=== PATIENT | male | born 1950 | race Caucasian/White ===

== ENCOUNTER 2016-12-12 11:21 | Inpatient (IN) | payer MEDICARE, OTHER ==
[~2016-12-12] VITALS: Ht 180.3 cm; Wt 139.8 kg
[2016-12-12] VITALS (10 sets, daily range): BP systolic 125–135; BP diastolic 67–74; PULSE 105–119; RESP 28; TEMP 98–98.4; O2SAT 94–99
[~2016-12-12 11:21] MED LIST: CLON0.1T PO; FISHCAP4 PO; GLIP5TAB8 PO; GLUM1000 PO; LANTUS2P SQ; LEVA500T PO; LOTE10TA13 PO; METO100T PO; ZETI10TA5 PO; ZOCO40TA PO
[2016-12-12] MEDS ORDERED: SODIUM CHLOR 0.9% 1000 ML INJ 1,000 ML IV SCH ×3 (11:38→12:06)
[2016-12-12] MEDS ORDERED: ONDANSETRON HCL 4 MG/2 ML VIAL IVP ONE (11:45)
--- NOTE | 2016-12-12 11:53 | PD ---
HPI Chief Complaint: General Weakness Time Seen by Provider: 11:46 Travel History International Travel<30 days: No Contact w/Intl Traveler<30days: No Traveled to known affect area: No History of Present Illness HPI 66-year-old male that presents to the ED for evaluation of generalized weakness. Patient comes rebound was for evaluation of this. Patient has a history of diabetes and cirrhosis. Patient apparently has been noncompliant with his insulin as per ambulance he told them that his blood sugar was reading high so he did not give himself the insulin. Per ambulance he had a lot of empty bottles of Mountain Dew that had been empty. Patient has been having nausea and diarrhea for the past couple of days. Patient states that he feels very weak. Patient does have episodes of confusion but seems to be alert and oriented 4 at this time. Unclear if patient is compliant with any other medications but likely not. Patient was found to be full of feces all around his body. He denies any history of alcohol or drugs and from her medical records I was able to review that he was here in May for something very similar. The time he was found to have kidney stones and sepsis. He denies any blood of any kind. He denies any chest pain. He denies any shortness of breath. Patient denies any urinary symptoms. He does have an allergy to iodine. No obvious fevers but patient has stated that he has chills. PFSH Past Medical History Hx Anticoagulant Therapy: Yes (COUMADIN) High Cholesterol: Yes Diabetes: Yes (TYPE 2) Diminished Hearing: No Hypertension: Yes Past Surgical History Genitourinary Surgery: Yes (KIDNEY STONE REMOVAL) Social History Alcohol Use: Yes (1 DRINK PER WEEK) Tobacco Use: No Substance Use: No Allergies-Medications (Allergen,Severity, Reaction): Coded Allergies: Iodine (Verified Allergy, Mild, 06/05/16) Reported Meds & Prescriptions Reported Meds & Active Scripts Active Levaquin (Levofloxacin) 500 Mg Tab 750 Mg PO DAILY Reported Zocor (Simvastatin) 40 Mg Tab 40 Mg PO DAILY Fish Oil + D3 (Fish Oil-Cholecalciferol) 1,200-1,000 Mg-Unit Cap 1 Cap PO DAILY Glumetza (Metformin HCl) 1,000 Mg Moira 1,000 Mg PO BID With evening meal Glipizide 5 Mg Tab 5 Mg PO BIDAC Take 30 minutes before a meal Lotensin (Benazepril HCl) 10 Mg Tab 5 Mg PO DAILY Zetia (Ezetimibe) 10 Mg Tab 10 Mg PO DAILY Clonidine (Clonidine HCl) 0.1 Mg Tab 0.1 Mg PO DAILY Metoprolol Tartrate 100 Mg Tab 100 Mg PO DAILY Lantus Inj (Insulin Glargine) 1,000 Unit/10 Ml Vial 50 Units SQ BID Review of Systems Except as stated in HPI: all other systems reviewed are Neg Physical Exam Narrative GENERAL: SKIN: Warm and dry. Patient has PVCs noted on the nails on the toes as well as the feet and arms. Most of it noted on the pants. Some of it had been already cleaned by ED nurse before I got in the room. HEAD: Atraumatic. Normocephalic. EYES: Pupils equal and round 4 mm reactive to light and accommodation. No scleral icterus. No injection or drainage. ENT: No nasal bleeding or discharge. Mucous membranes pink and moist. Tongue is midline. No uvula deviation. NECK: Trachea midline. No JVD. CARDIOVASCULAR: Regular rate and rhythm. No murmurs, S3, S4. RESPIRATORY: No accessory muscle use. Clear to auscultation. Breath sounds equal bilaterally. GASTROINTESTINAL: Abdomen soft, non-tender, nondistended. Hepatic and splenic margins not palpable. MUSCULOSKELETAL: Extremities without clubbing, cyanosis, or edema. No obvious deformities. Full range of motion of the upper and lower extremities bilaterally. 2+ pulses bilaterally. NEUROLOGICAL: Awake and alert. No obvious cranial nerve deficits. Motor grossly within normal limits. Five out of 5 muscle strength in the arms and legs. Normal speech. PSYCHIATRIC: Appropriate mood and affect; insight and judgment normal. Data Data Last Documented VS Vital Signs Date Time Temp Pulse Resp B/P Pulse Ox O2 Delivery O2 Flow Rate FiO2 12/12/16 11:42 98.4 116 28 135/74 96 Orders Electrocardiogram (12/12/16 11:38) Complete Blood Count With Diff (12/12/16 11:38) Comprehensive Metabolic Panel (12/12/16 11:38) Ckmb (Isoenzyme) Profile (12/12/16 11:38) Troponin I (12/12/16 11:38) Prothrombin Time / Inr (Pt) (12/12/16 11:38) Act Partial Throm Time (Ptt) (12/12/16 11:38) Blood Culture (12/12/16 11:38) Lipase (12/12/16 11:38) Urinalysis - C+S If Indicated (12/12/16 11:38) Magnesium (Mg) (12/12/16 11:38) Thyroid Stimulating Hormone (12/12/16 11:38) Chest, Single Ap (12/12/16 11:38) Iv Access Insert/Monitor (12/12/16 11:38) Ecg Monitoring (12/12/16 11:38) Oximetry (12/12/16 11:38) Lactic Acid (12/12/16 11:38) Ondansetron Inj (Zofran Inj) (12/12/16 11:45) Sodium Chlor 0.9% 1000 Ml Inj (Ns 1000 M (12/12/16 11:38) C Diff Toxin Pcr (12/12/16 11:38) Beta Hydroxybutyrate (Acetone) (12/12/16 11:41) Blood Gas Venous (Vbg) (12/12/16 11:41) Ammonia (12/12/16 11:43) Ct Brain W/O Iv Contrast(Rout) (12/12/16 12:01) Sodium Chlor 0.9% 1000 Ml Inj (Ns 1000 M (12/12/16 12:02) Sodium Chlor 0.9% 1000 Ml Inj (Ns 1000 M (12/12/16 12:06) B-Type Natriuretic Peptide (12/12/16 12:32) CKMB (12/12/16 11:53) CKMB% (12/12/16 11:53) Vascular Access Team Consult/P PRN (12/12/16 13:15) Vascular Poc Ultrasound (12/12/16 ) Potassium Chlor 20 Meq Premix (Kcl 20 Me (12/12/16 13:15) Potassium Chloride (Kcl) (12/12/16 13:15) Sodium Chlor 0.9% 1000 Ml Inj (Ns 1000 M (12/12/16 13:15) Vancomycin Inj (Vancomycin Inj) (12/12/16 13:30) Piperacil-Tazo 3.375 Gm Premix (Zosyn 3. (12/12/16 13:30) Admit To Inpatient (12/12/16 ) Bridge Game Director / Telemetry TANA.Q8H (12/12/16 13:28) ^ Insert Iv (12/12/16 13:28) ^ Teach Patient (12/12/16 13:28) Diet Npo (12/12/16 Lunch) Bedside Glucose TANA.Q1H (12/12/16 13:28) Sodium Chlor 0.9% 1000 Ml Inj (Ns 1000 M (12/12/16 13:28) Dext 5%-Nacl 0.9% 1000 Ml Inj (D5w-Ns 10 (12/12/16 13:28) Insulin Human Regular Inj (Novolin R Inj (12/12/16 13:45) Insulin Regular (Iv Infusion) (Novolin R (12/12/16 13:30) Potassium Chlor 40 Meq Premix (Kcl 40 Me (12/12/16 13:30) Potassium Chlor 40 Meq Premix (Kcl 40 Me (12/12/16 13:30) Potassium Chlor 20 Meq Premix (Kcl 20 Me (12/12/16 13:30) Potassium Chlor 20 Meq Premix (Kcl 20 Me (12/12/16 13:30) Potassium Chlor 20 Meq Premix (Kcl 20 Me (12/12/16 13:30) Potassium Chlor 20 Meq Premix (Kcl 20 Me (12/12/16 13:30) Potassium Chlor 20 Meq Premix (Kcl 20 Me (12/12/16 13:30) Potassium Chlor 20 Meq Premix (Kcl 20 Me (12/12/16 13:30) Sodium Bicarbonate 8.4% Inj (Sodium Bica (12/12/16 13:30) Sodium Bicarbonate 8.4% Inj (Sodium Bica (12/12/16 13:30) Sodium Phosphate Inj (Sodium Phosphate I (12/12/16 13:30) Basic Metabolic Panel (Bmp) (12/12/16 18:28) Basic Metabolic Panel (Bmp) (12/13/16 00:28) Basic Metabolic Panel (Bmp) (12/13/16 06:28) Basic Metabolic Panel (Bmp) (12/13/16 12:28) Magnesium (Mg) (12/12/16 18:28) Magnesium (Mg) (12/13/16 00:28) Magnesium (Mg) (12/13/16 06:28) Magnesium (Mg) (12/13/16 12:28) Phosphorus (Po4) (12/12/16 18:28) Phosphorus (Po4) (12/13/16 00:28) Phosphorus (Po4) (12/13/16 06:28) Phosphorus (Po4) (12/13/16 12:28) ^ Initiate Protocol (12/12/16 13:28) Instruction (12/12/16 13:28) [facility] Nursing Information (12/12/16 13:30) Chlorhexidine 2% Cloth (Chlorhexidine 2% (12/13/16 04:00) Chlorhexidine 2% Cloth (Chlorhexidine 2% (12/12/16 13:30) Mrsa Pcr Surveillance (12/12/16 13:28) Inpatient Certification (12/12/16 ) Potassium Chloride (Kcl) (12/12/16 13:30) Potassium Chlor 20 Meq Premix (Kcl 20 Me (12/12/16 13:30) Admit Order (Ed Use Only) (12/12/16 13:30) Ns (Bolus) Inj (12/12/16 13:45) Ns (Bolus) Inj (12/12/16 13:45) Electrocardiogram (12/12/16 ) Labs Laboratory Tests Test 12/12/16 12/12/16 12/12/16 11:40 11:53 12:03 Ammonia 30 MCMOL/L White Blood Count 16.2 TH/MM3 Red Blood Count 4.54 MIL/MM3 Hemoglobin 14.5 GM/DL Hematocrit 48.1 % Mean Corpuscular Volume 105.9 FL Mean Corpuscular Hemoglobin 32.0 PG Mean Corpuscular Hemoglobin 30.2 % Concent Red Cell Distribution Width 14.5 % Platelet Count 148 TH/MM3 Mean Platelet Volume 9.7 FL Neutrophils (%) (Auto) 87.6 % Lymphocytes (%) (Auto) 4.2 % Monocytes (%) (Auto) 8.0 % Eosinophils (%) (Auto) 0.0 % Basophils (%) (Auto) 0.2 % Neutrophils # (Auto) 14.2 TH/MM3 Lymphocytes # (Auto) 0.7 TH/MM3 Monocytes # (Auto) 1.3 TH/MM3 Eosinophils # (Auto) 0.0 TH/MM3 Basophils # (Auto) 0.0 TH/MM3 CBC Comment DIFF FINAL Differential Comment Prothrombin Time 13.1 SEC Prothromb Time International 1.2 RATIO Ratio Activated Partial 28.0 SEC Thromboplast Time Sodium Level 129 MEQ/L Potassium Level 2.6 MEQ/L Chloride Level 93 MEQ/L Carbon Dioxide Level 14.1 MEQ/L Anion Gap 22 MEQ/L Blood Urea Nitrogen 18 MG/DL Creatinine 2.65 MG/DL Estimat Glomerular Filtration 24 ML/MIN Rate Random Glucose 1717 MG/DL Lactic Acid Level 6.9 mmol/L Calcium Level 8.9 MG/DL Magnesium Level 3.0 MG/DL Total Bilirubin 1.3 MG/DL Aspartate Amino Transf 47 U/L (AST/SGOT) Alanine Aminotransferase 38 U/L (ALT/SGPT) Alkaline Phosphatase 185 U/L Total Creatine Kinase 2392 U/L Creatine Kinase MB 8.3 NG/ML Creatine Kinase MB % 0.3 % Troponin I 1.22 NG/ML Total Protein 7.2 GM/DL Albumin 3.5 GM/DL Lipase 264 U/L Thyroid Stimulating Hormone 0.635 uIU/ML 3rd Gen B-Hydroxybutyrate 4.39 MMOL/L Blood Gas Puncture Site IV Blood Gas Patient Temperature 98.6 Venous Blood pH 7.24 Venous Blood Partial Pressure 35 mmHg CO2 Venous Blood Partial Pressure 27 mmHg O2 Venous Blood HCO3 15 mmol/L Venous Blood Oxygen Saturation 48 % Venous Blood Oxygen Content 10.1 Vol % Venous Blood Base Excess -11.4 mmol/L Oxygen Delivery Device NASAL CANNULA Blood Gas Liter Flow 2 L/M MDM Medical Decision Making Medical Screen Exam Complete: Yes Emergency Medical Condition: Yes Medical Record Reviewed: Yes Interpretation(s) CBC & BMP Diagram 12/12/16 11:53 acetone is elevated. Lacitic in the 6s troponin elevated CK in the 1999s LFts and lipase WNL Last Impressions Head CT 12/12/16 1201 Signed Impressions: Service Date/Time: , December 12, 2016 13:06 - CONCLUSION: 1. Mild cerebral atrophy. 2. No acute infarct, acute hemorrhage, mass effect or extra axial fluid collections. Daniel Pisano MD Differential Diagnosis Sepsis versus severe sepsis versus poor hygiene versus UTI versus dehydration versus DKA versus acidosis versus gastroenteritis versus gastritis versus C. difficile versus noncompliance versus cirrhosis Narrative Course 66-year-old male that presents to the ED for evaluation of generalized weakness. Patient was properly examined and was found to have signs and symptoms very concerning for severe illness. Patient does appear to be tachycardic and to keep neck. Patient appears to be alert and oriented and answers margins of properly but he does appear to have some episodes of confusion. Sugar is critical high. At this time concern for DKA as well as sepsis. My attending Dr. Newton evaluated the patient with me and agrees with plan. Labs and imaging ordered. Patient was started on IV fluids. Labs and imaging come back showing DKA, sepsis, rhabdomyolysis and positive troponin. Case was signed out to my attending who took over care and admitted the patient to the intensive care unit registered nurse for evaluation of all of this abnormalities. Patient had already been given 3 L as well as started on Zosyn and vancomycin. Sepsis Criteria SIRS Criteria (2 or more): Heart rate over 90, WBC > 43570, < 4000 or > 10% bands Sepsis Criteria (SIRS+source): Infect source susp/known Severe Sepsis (+one): Lactate >2 Criteria Outcome: Meets severe sepsis criteria Diagnosis Primary Impression: DKA (diabetic ketoacidoses) Qualified Code: E13.10 - Diabetic ketoacidosis without coma associated with type 2 diabetes mellitus Additional Impressions: Severe sepsis Poor personal hygiene Gastroenteritis Admitting Information Admitting Physician Requests: Admit Mendel Cates Dec 12, 2016 11:53
[2016-12-12 12:14] LABS: BLOOD GAS VENOUS BASE EXCESS -11.4 mmol/L (-2-2); BLOOD GAS VENOUS HCO3 15 mmol/L (22-26); BLOOD GAS VENOUS O2 CONTENT 10.1 Vol % (9.0-17.0); BLOOD GAS VENOUS O2 HGB SAT 48 % (70-76); BLOOD GAS VENOUS PCO2 35 mmHg (44-48); BLOOD GAS VENOUS PO2 27 mmHg (35-40); BLOOD GAS VENOUS pH 7.24 (7.360-7.400); CRITICAL VALUE YES; TEMP CORR TO 98.6
[2016-12-12 12:15] LABS: DRAW SITE IV; LITER FLOW 2 L/M; OXYGEN DEVICE NASAL CANNULA; STAT YES
[2016-12-12 12:40] LABS: AUTOMATED NEUTROPHIL # 14.2 TH/MM3 (1.8-7.7); BASOPHIL % 0.2 % (0.0-2.0); HEMATOCRIT 48.1 % (39.0-51.0); HEMO FLAGS DIFF FINAL; LYMPH % 4.2 % (9.0-44.0); LYMPHOCYTE # 0.7 TH/MM3 (1.0-4.8); MEAN CELL VOLUME 105.9 FL (80.0-100.0); MEAN CORPUSCULAR HGB CONC 30.2 % (32.0-36.0); NEUT % 87.6 % (16.0-70.0); PLATELET COUNT 148 TH/MM3 (150-450); RED BLOOD COUNT 4.54 MIL/MM3 (4.50-5.90); RED CELL DISTRIBUTION WIDTH 14.5 % (11.6-17.2); WHITE BLOOD COUNT 16.2 TH/MM3 (4.0-11.0)
[2016-12-12 12:51] LABS: INTERNATIONAL NORMALIZED RATIO 1.2 RATIO; PROTHROMBIN TIME - PATIENT 13.1 SEC (9.8-11.6)
[2016-12-12 13:10] LABS: ALKALINE PHOSPHATASE 185 U/L (45-117); ALT (GPT) 38 U/L (12-78); ANION GAP 22 MEQ/L (5-15); AST (GOT) 47 U/L (15-37); BICARBONATE 14.1 MEQ/L (21.0-32.0); BLOOD UREA NITROGEN 18 MG/DL (7-18); CHLORIDE 93 MEQ/L (98-107); CREATINE KINASE 2392 U/L (39-308); GLOMERULAR FILTRATION RATE 24 ML/MIN (>89); SODIUM (NA) 129 MEQ/L (136-145); TOTAL BILIRUBIN ADULT 1.3 MG/DL (0.2-1.0)
[2016-12-12 13:13] LABS: POTASSIUM 2.6 MEQ/L (3.5-5.1)
--- NOTE | 2016-12-12 13:13 | RADRPT ---
EXAM DATE/TIME: 12/12/2016 11:49 [facility] COMPARISON: CHEST SINGLE AP, June 07, 2016, 0:55. INDICATIONS : Shortness of breath. MEDICAL HISTORY : Diabetes mellitus type II. Hypertension SURGICAL HISTORY : None. ENCOUNTER: Initial ACUITY: 1 day PAIN SCORE: Non-responsive. LOCATION: Bilateral chest FINDINGS: The heart is enlarged. There is questionable widened mediastinum. CT of the chest with contrast woul d be helpful for further evaluation of this finding. Bibasilar streakiness is noted. CONCLUSION: 1. Questioned widened mediastinum. CT of the chest with contrast would be helpful for further evaluat ion of this finding. 2. Bibasilar streakiness consistent with atelectasis and/or fibrotic scarring. 3. Cardiomegaly. Daniel Pisano MD on December 12, 2016 at 13:06 Board Certified Radiologist. This report was verified electronically.
[2016-12-12] MEDS ORDERED: SODIUM CHLOR 0.9% 1000 ML INJ 1,000 ML IV ONE ×3 (13:15→13:45)
[2016-12-12] MEDS ORDERED: POTASSIUM CHLORIDE 20 MEQ CONTROLLED RELEASE TAB PO ONE ×2 (13:15→13:30)
[2016-12-12] MEDS ORDERED: POTASSIUM CHLOR 20 MEQ PREMIX 100 ML IV ONE (13:15)
--- NOTE | 2016-12-12 13:18 | RADRPT ---
EXAM DATE/TIME: 12/12/2016 13:06 [facility] COMPARISON: No previous studies available for comparison. INDICATIONS : Weakness with nausea and vomiting for 5 days. RADIATION DOSE: 44.65 CTDIvol (mGy) MEDICAL HISTORY : Hypertension. Renal calculi. SURGICAL HISTORY : None. ENCOUNTER: Initial ACUITY: 1 day PAIN SCALE: 5/10 LOCATION: cranial TECHNIQUE: Multiple contiguous axial images were obtained of the head. Using automated exposure control and adj ustment of the mA and/or kV according to patient size, radiation dose was kept as low as reasonably a chievable to obtain optimal diagnostic quality images. DICOM format image data is available electro nically for review and comparison. FINDINGS: CEREBRUM: Mild cerebral atrophy is noted. No evidence of midline shift, mass lesion, hemorrhage or acute infarc tion. No extra-axial fluid collections are seen. POSTERIOR FOSSA: The cerebellum and brainstem are intact. The 4th ventricle is midline. The cerebellopontine angle i s unremarkable. EXTRACRANIAL: The visualized portion of the orbits is intact. SKULL: The calvaria is intact. No evidence of skull fracture. CONCLUSION: 1. Mild cerebral atrophy. 2. No acute infarct, acute hemorrhage, mass effect or extra axial fluid collections. Daniel Pisano MD on December 12, 2016 at 13:15 Board Certified Radiologist. This report was verified electronically.
--- NOTE | 2016-12-12 13:25 | PD ---
Physical Exam Narrative I, Dr. Netwon, have reviewed the advance practice practitioner's documentation and am in agreement, met with the patient face to face, made the diagnosis, and the medical decision making was done by me. *My assessment and Findings: DKA vs. HHS vs. rhabdomyolysis vs. dehydration 66yo M with PMH of DM, cirrhosis presents to the ED with c/o generalized weakness. Pt fell and was not able to get off the floor for 8 hours. Denies any fever, chest pain, sob, n/v, abdominal pain, focal weakness or numbness. Pt appears very dehydrated. Labs reviewed, leukocytosis at 16.2. VBG showed metabolic acidosis with pH of 7.24. HCO3 of 15. Potassium is low at 2.6. Replaced with IV and PO KCl. Glucose is 1717. CO2 14.1. Lactic acid is elevated at 6.9. Creatinine 2.69. CPK 2392. Troponin elevated at 1.22, may be secondary to sepsis but will trend. Pt has no chest pain and no ST elevation in EKG. Pt empirically cover with vancomycin and zosyn. After discussing with glass cutter, ordered a total of 5 liters of NS IVF. Will start insulin drip once potassium is replaced. Data Data Last Documented VS Vital Signs Date Time Temp Pulse Resp B/P Pulse Ox O2 Delivery O2 Flow Rate FiO2 12/12/16 11:42 98.4 116 28 135/74 96 Orders Electrocardiogram (12/12/16 11:38) Complete Blood Count With Diff (12/12/16 11:38) Comprehensive Metabolic Panel (12/12/16 11:38) Ckmb (Isoenzyme) Profile (12/12/16 11:38) Troponin I (12/12/16 11:38) Prothrombin Time / Inr (Pt) (12/12/16 11:38) Act Partial Throm Time (Ptt) (12/12/16 11:38) Blood Culture (12/12/16 11:38) Lipase (12/12/16 11:38) Urinalysis - C+S If Indicated (12/12/16 11:38) Magnesium (Mg) (12/12/16 11:38) Thyroid Stimulating Hormone (12/12/16 11:38) Chest, Single Ap (12/12/16 11:38) Iv Access Insert/Monitor (12/12/16 11:38) Ecg Monitoring (12/12/16 11:38) Oximetry (12/12/16 11:38) Lactic Acid (12/12/16 11:38) Ondansetron Inj (Zofran Inj) (12/12/16 11:45) Sodium Chlor 0.9% 1000 Ml Inj (Ns 1000 M (12/12/16 11:38) C Diff Toxin Pcr (12/12/16 11:38) Beta Hydroxybutyrate (Acetone) (12/12/16 11:41) Blood Gas Venous (Vbg) (12/12/16 11:41) Ammonia (12/12/16 11:43) Ct Brain W/O Iv Contrast(Rout) (12/12/16 12:01) Sodium Chlor 0.9% 1000 Ml Inj (Ns 1000 M (12/12/16 12:02) Sodium Chlor 0.9% 1000 Ml Inj (Ns 1000 M (12/12/16 12:06) B-Type Natriuretic Peptide (12/12/16 12:32) CKMB (12/12/16 11:53) CKMB% (12/12/16 11:53) Vascular Access Team Consult/P PRN (12/12/16 13:15) Vascular Poc Ultrasound (12/12/16 ) Potassium Chlor 20 Meq Premix (Kcl 20 Me (12/12/16 13:15) Potassium Chloride (Kcl) (12/12/16 13:15) Sodium Chlor 0.9% 1000 Ml Inj (Ns 1000 M (12/12/16 13:15) Vancomycin Inj (Vancomycin Inj) (12/12/16 13:30) Piperacil-Tazo 3.375 Gm Premix (Zosyn 3. (12/12/16 13:30) Admit To Inpatient (12/12/16 ) Reinforcing Steel Erector / Telemetry TANA.Q8H (12/12/16 13:28) ^ Insert Iv (12/12/16 13:28) ^ Teach Patient (12/12/16 13:28) Diet Npo (12/12/16 Lunch) Bedside Glucose TANA.Q1H (12/12/16 13:28) Sodium Chlor 0.9% 1000 Ml Inj (Ns 1000 M (12/12/16 13:28) Dext 5%-Nacl 0.9% 1000 Ml Inj (D5w-Ns 10 (12/12/16 13:28) Insulin Human Regular Inj (Novolin R Inj (12/12/16 13:45) Insulin Regular (Iv Infusion) (Novolin R (12/12/16 13:30) Potassium Chlor 40 Meq Premix (Kcl 40 Me (12/12/16 13:30) Potassium Chlor 40 Meq Premix (Kcl 40 Me (12/12/16 13:30) Potassium Chlor 20 Meq Premix (Kcl 20 Me (12/12/16 13:30) Potassium Chlor 20 Meq Premix (Kcl 20 Me (12/12/16 13:30) Potassium Chlor 20 Meq Premix (Kcl 20 Me (12/12/16 13:30) Potassium Chlor 20 Meq Premix (Kcl 20 Me (12/12/16 13:30) Potassium Chlor 20 Meq Premix (Kcl 20 Me (12/12/16 13:30) Potassium Chlor 20 Meq Premix (Kcl 20 Me (12/12/16 13:30) Sodium Bicarbonate 8.4% Inj (Sodium Bica (12/12/16 13:30) Sodium Bicarbonate 8.4% Inj (Sodium Bica (12/12/16 13:30) Sodium Phosphate Inj (Sodium Phosphate I (12/12/16 13:30) Basic Metabolic Panel (Bmp) (12/13/16 00:28) Basic Metabolic Panel (Bmp) (12/13/16 06:28) Basic Metabolic Panel (Bmp) (12/13/16 12:28) Magnesium (Mg) (12/13/16 00:28) Magnesium (Mg) (12/13/16 06:28) Magnesium (Mg) (12/13/16 12:28) Phosphorus (Po4) (12/13/16 00:28) Phosphorus (Po4) (12/13/16 06:28) Phosphorus (Po4) (12/13/16 12:28) ^ Initiate Protocol (12/12/16 13:28) Instruction (12/12/16 13:28) [facility] Nursing Information (12/12/16 13:30) Chlorhexidine 2% Cloth (Chlorhexidine 2% (12/13/16 04:00) Chlorhexidine 2% Cloth (Chlorhexidine 2% (12/12/16 13:30) Mrsa Pcr Surveillance (12/12/16 13:28) Inpatient Certification (12/12/16 ) Potassium Chloride (Kcl) (12/12/16 13:30) Potassium Chlor 20 Meq Premix (Kcl 20 Me (12/12/16 13:30) Admit Order (Ed Use Only) (12/12/16 13:30) Sodium Chlor 0.9% 1000 Ml Inj (Ns 1000 M (12/12/16 13:45) Sodium Chlor 0.9% 1000 Ml Inj (Ns 1000 M (12/12/16 13:45) Electrocardiogram (12/12/16 ) Labs Laboratory Tests Test 12/12/16 12/12/16 12/12/16 12/12/16 11:40 11:53 12:03 12:38 Ammonia 30 MCMOL/L White Blood Count 16.2 TH/MM3 Red Blood Count 4.54 MIL/MM3 Hemoglobin 14.5 GM/DL Hematocrit 48.1 % Mean Corpuscular Volume 105.9 FL Mean Corpuscular Hemoglobin 32.0 PG Mean Corpuscular Hemoglobin 30.2 % Concent Red Cell Distribution Width 14.5 % Platelet Count 148 TH/MM3 Mean Platelet Volume 9.7 FL Neutrophils (%) (Auto) 87.6 % Lymphocytes (%) (Auto) 4.2 % Monocytes (%) (Auto) 8.0 % Eosinophils (%) (Auto) 0.0 % Basophils (%) (Auto) 0.2 % Neutrophils # (Auto) 14.2 TH/MM3 Lymphocytes # (Auto) 0.7 TH/MM3 Monocytes # (Auto) 1.3 TH/MM3 Eosinophils # (Auto) 0.0 TH/MM3 Basophils # (Auto) 0.0 TH/MM3 CBC Comment DIFF FINAL Differential Comment Prothrombin Time 13.1 SEC Prothromb Time International 1.2 RATIO Ratio Activated Partial 28.0 SEC Thromboplast Time Sodium Level 129 MEQ/L Potassium Level 2.6 MEQ/L Chloride Level 93 MEQ/L Carbon Dioxide Level 14.1 MEQ/L Anion Gap 22 MEQ/L Blood Urea Nitrogen 18 MG/DL Creatinine 2.65 MG/DL Estimat Glomerular Filtration 24 ML/MIN Rate Random Glucose 1717 MG/DL Lactic Acid Level 6.9 mmol/L Calcium Level 8.9 MG/DL Magnesium Level 3.0 MG/DL Total Bilirubin 1.3 MG/DL Aspartate Amino Transf 47 U/L (AST/SGOT) Alanine Aminotransferase 38 U/L (ALT/SGPT) Alkaline Phosphatase 185 U/L Total Creatine Kinase 2392 U/L Creatine Kinase MB 8.3 NG/ML Creatine Kinase MB % 0.3 % Troponin I 1.22 NG/ML Total Protein 7.2 GM/DL Albumin 3.5 GM/DL Lipase 264 U/L Thyroid Stimulating Hormone 0.635 uIU/ML 3rd Gen B-Hydroxybutyrate 4.39 MMOL/L Blood Gas Puncture Site IV Blood Gas Patient Temperature 98.6 Venous Blood pH 7.24 Venous Blood Partial Pressure 35 mmHg CO2 Venous Blood Partial Pressure 27 mmHg O2 Venous Blood HCO3 15 mmol/L Venous Blood Oxygen Saturation 48 % Venous Blood Oxygen Content 10.1 Vol % Venous Blood Base Excess -11.4 mmol/L Oxygen Delivery Device NASAL CANNULA Blood Gas Liter Flow 2 L/M Urine Color LIGHT-YELLOW Urine Turbidity CLEAR Urine pH 5.0 Urine Specific [place] 1.029 Urine Protein NEG mg/dL Urine Glucose (UA) 1000 mg/dL Urine Ketones 10 mg/dL Urine Occult Blood SMALL Urine Nitrite NEG Urine Bilirubin NEG Urine Urobilinogen LESS THAN 2.0 MG/DL Urine Leukocyte Esterase NEG Urine RBC LESS THAN 1 /hpf Urine WBC 1 /hpf Microscopic Urinalysis Comment CULT NOT INDICATED Test 12/12/16 13:15 B-Type Natriuretic Peptide 145 PG/ML MDM Supervised Visit with CALVIN: Yes Interpretation(s) EKG: Sinus tachycardia at 117bpm. Critical Care Narrative Aggregate critical care time was 50 minutes. Time to perform other separately billable procedures was not included in the critical care time. My time did not include minutes spent treating any other patients simultaneously or on activities that did not directly contribute to the patient's treatment. The services I provided to this patient were to treat and/or prevent clinically significant deterioration that could result in: cardiovascular collapse or . I provided critical care services requiring my management, as noted below: Chart data review, documentation time, medication orders and management, vital sign assessments/reviewing monitor data, ordering and reviewing lab tests, ordering and interpreting/reviewing x-rays and diagnostic studies, care of the patient and discussion of the patient with the admitting physicians. Diagnosis Primary Impression: DKA (diabetic ketoacidoses) Qualified Code: E13.10 - Diabetic ketoacidosis without coma associated with type 2 diabetes mellitus Admitting Information Admitting Physician Requests: Admit Yolanda Newton DO Dec 12, 2016 13:25
[2016-12-12 13:28] LABS: CKMB 8.3 NG/ML (0.5-3.6)
[2016-12-12] MEDS: DEXT 5%-NACL 0.9% 1000 ML INJ 1,000 ML IV SCH (13:28)
[2016-12-12] MEDS ORDERED: VANCOMYCIN INJ 1,000 MG in SODIUM CHLOR 0.9% 250 ML INJ 250 ML IV ONE (13:30)
[2016-12-12] MEDS ORDERED: POTASSIUM CHLOR 40 MEQ PREMIX 100 ML IV PRN (13:30)
[2016-12-12] MEDS ORDERED: POTASSIUM CHLOR 20 MEQ PREMIX 100 ML IV PRN ×5 (13:30)
[2016-12-12] MEDS ORDERED: PIPERACIL-TAZO 3.375 GM PREMIX 50 ML IV ONE (13:30)
[2016-12-12] MEDS ORDERED: SODIUM PHOSPHATE INJ 15 MMOL in SODIUM CHLORIDE 0.9% INJ 100 ML IV PRN (13:30)
[2016-12-12] MEDS ORDERED: SODIUM BICARBONATE 8.4% SOLN 50 MEQ/50 ML VIAL IV PRN ×2 (13:30)
[2016-12-12] MEDS ORDERED: CHLORHEXIDINE GLUCONATE 2 % 1 PACK (2 CLOTHS) TOP PRN (13:30)
[2016-12-12] MEDS ORDERED: MISCELLANEOUS NURSING INFORMATION XX SCH (13:30)
[2016-12-12] MEDS ORDERED: INSULIN REGULAR (IV INFUSION) 100 UNITS in SODIUM CHLORIDE 0.9% INJ 99 ML IV SCH (13:30)
[2016-12-12] MEDS ORDERED: INSULIN HUMAN REGULAR 1,000 UNITS/10 ML VIAL IV PUSH ONE (13:45)
[2016-12-12 13:57] LABS: BLOOD, URINE SMALL (NEG); GLUCOSE,URINE 1000 mg/dL (NEG); KETONE, URINE 10 mg/dL (NEG); NITRITE,URINE NEG (NEG); URINE COLOR LIGHT-YELLOW (YELLW/STRAW)
[2016-12-12 14:02] LABS: COMMENT (UR) CULT NOT INDICATED; CULTURE IF INDICATED CULT NOT INDICATED
--- NOTE | 2016-12-12 14:03 | EKG ---
Date Performed: 12/12/2016 Time Performed: 11:47:49 PTAGE: 66 years EKG: Marked baseline artifact present PROBABLE SINUS TACHYCARDIA SEPTAL MYOCARDIAL INFARCTION AB NORMAL ECG I would repeat this electrocardiogram given the marked artifact NO PREVIOUS TRACING DOCTOR: Celso Gomes Interpretating Date/Time 12/12/2016 14:02:42
[2016-12-12] MEDS: POTASSIUM CHLOR 20 MEQ PREMIX 100 ML IV SCH ×2 (14:21→15:30)
--- NOTE | 2016-12-12 15:49 | HHI.HP ---
[facility] Service Critical Care Medicine Primary Care Physician [place] Manning M.D. Admission Diagnosis DKA, rhabdomyolysis, sepsis, positive troponin Diagnosis: (1) DKA (diabetic ketoacidoses) Diagnosis: Principal (2) Severe sepsis Diagnosis: Principal (3) NSTEMI (non-ST elevated myocardial infarction) Diagnosis: Principal (4) Lactic acidosis Diagnosis: Principal (5) Acute kidney failure Diagnosis: Principal (6) Hypokalemia Diagnosis: Principal (7) Medical non-compliance Diagnosis: Secondary (8) Type 2 diabetes mellitus Diagnosis: Secondary (9) Cirrhosis of liver Diagnosis: Secondary Chief Complaint: DKA Severe sepsis Acute kidney failure Travel History International Travel<30 Days: No Contact w/Intl Traveler <30 Da: No Traveled to Known Affected Are: No Sepsis Criteria SIRS Criteria (2 or more): Heart rate over 90, WBC > 77129, < 4000 or > 10% bands History of Present Illness Patient is a 66 yo white male with past medical history of type 2 diabetes, hypertension, dyslipidemia who was brought into the emergency department for evaluation of severe weakness and lethargy. Patient apparently has been noncompliant with his insulin as per EMS and multiple of empty bottles of Mountain Dew was found at his home. He was found to be in feces all around his body. Apparently patient fell and was not able to get off the floor for several hours. Lab work revealed leukocytosis at 16.2., VBG showed metabolic acidosis with pH of 7.24. HCO3 of 15, Potassium is low at 2.6. Blood glucose was extremely elevated at 1717, serum acetone was positive, I advised ED to replace atleast 160 meq potassium as there is risk of further hypokalemia with insulin infusion. Lactic acid is elevated at 6.9. Creatinine 2.69. CPK 2392. Pt empirically cover with vancomycin and zosyn. I evaluated the patient in the emergency department and then again in the ICU. He is critically ill, tremulous. Extremely dehydrated, tachycardic. Additional 2 L fluid bolus was ordered. DKA protocol initiated, after repeat CMP. Panculture sent. I have also placed a right subclavian central line to facilitate, faster potassium replacement and also for fluid resuscitation Review of Systems ROS Limitations: Poor Historian, Other (as per HPI) Past Family Social History Allergies: Coded Allergies: Iodine (Verified Allergy, Mild, 12/12/16) Past Medical History Type 2 diabetes Hypertension Cirrhosis of the liver Dyslipidemia Kidney stones Past Surgical History Renal stone removal Reported Medications Levaquin (Levofloxacin) 500 Mg Tab 750 Mg PO DAILY Zocor (Simvastatin) 40 Mg Tab 40 Mg PO DAILY Fish Oil + D3 (Fish Oil-Cholecalciferol) 1,200-1,000 Mg-Unit Cap 1 Cap PO DAILY Glumetza (Metformin HCl) 1,000 Mg Moira 1,000 Mg PO BID Glipizide 5 Mg Tab 5 Mg PO BIDAC Lotensin (Benazepril HCl) 10 Mg Tab 5 Mg PO DAILY Zetia (Ezetimibe) 10 Mg Tab 10 Mg PO DAILY Clonidine (Clonidine HCl) 0.1 Mg Tab 0.1 Mg PO DAILY Metoprolol Tartrate 100 Mg Tab 100 Mg PO DAILY Lantus Inj (Insulin Glargine) 1,000 Unit/10 Ml Vial 50 Units SQ BID Active Ordered Medications Reviewed Family History Denies family history of diabetes Social History Occasional alcohol use Physical Exam Vital Signs Vital Signs Date Time Temp Pulse Resp B/P Pulse Ox O2 Delivery O2 Flow Rate FiO2 12/12/16 14:00 115 28 99 Nasal Cannula 2 12/12/16 14:00 98.4 115 28 132/70 99 Nasal Cannula 2 12/12/16 11:42 98.4 116 28 135/74 96 12/12/16 11:34 98.4 119 28 125/74 94 Physical Exam GEN: Disheveled acutely ill-appearing obese male, personal hygiene SKIN: Warm and dry. HEAD: Atraumatic. Normocephalic. EYES: Pupils equal and round 4 mm reactive to light and accommodation. ENT: No nasal bleeding or discharge. NECK: Trachea midline. No JVD. CARDIOVASCULAR: Tachycardic rate. No murmurs heard RESPIRATORY: No accessory muscle use. Clear to auscultation. GASTROINTESTINAL: Abdomen soft, non-tender, obese. Hepatic and splenic margins not palpable. MUSCULOSKELETAL: Extremities without clubbing, cyanosis, or edema. NEUROLOGICAL: Awake and alert. Slightly tremulous. Poor historian. Motor grossly within normal limits. Laboratory Laboratory Tests Test 12/12/16 12/12/16 12/12/16 12/12/16 11:40 11:53 12:03 12:38 Ammonia 30 White Blood Count 16.2 Red Blood Count 4.54 Hemoglobin 14.5 Hematocrit 48.1 Mean Corpuscular Volume 105.9 Mean Corpuscular Hemoglobin 32.0 Mean Corpuscular Hemoglobin 30.2 Concent Red Cell Distribution Width 14.5 Platelet Count 148 Mean Platelet Volume 9.7 Neutrophils (%) (Auto) 87.6 Lymphocytes (%) (Auto) 4.2 Monocytes (%) (Auto) 8.0 Eosinophils (%) (Auto) 0.0 Basophils (%) (Auto) 0.2 Neutrophils # (Auto) 14.2 Lymphocytes # (Auto) 0.7 Monocytes # (Auto) 1.3 Eosinophils # (Auto) 0.0 Basophils # (Auto) 0.0 CBC Comment DIFF FINAL Differential Comment Prothrombin Time 13.1 Prothromb Time International 1.2 Ratio Activated Partial 28.0 Thromboplast Time Sodium Level 129 Potassium Level 2.6 Chloride Level 93 Carbon Dioxide Level 14.1 Anion Gap 22 Blood Urea Nitrogen 18 Creatinine 2.65 Estimat Glomerular Filtration 24 Rate Random Glucose 1717 Lactic Acid Level 6.9 Calcium Level 8.9 Magnesium Level 3.0 Total Bilirubin 1.3 Aspartate Amino Transf 47 (AST/SGOT) Alanine Aminotransferase 38 (ALT/SGPT) Alkaline Phosphatase 185 Total Creatine Kinase 2392 Creatine Kinase MB 8.3 Creatine Kinase MB % 0.3 Troponin I 1.22 Total Protein 7.2 Albumin 3.5 Lipase 264 Thyroid Stimulating Hormone 0.635 3rd Gen B-Hydroxybutyrate 4.39 Blood Gas Puncture Site IV Blood Gas Patient Temperature 98.6 Venous Blood pH 7.24 Venous Blood Partial Pressure 35 CO2 Venous Blood Partial Pressure 27 O2 Venous Blood HCO3 15 Venous Blood Oxygen Saturation 48 Venous Blood Oxygen Content 10.1 Venous Blood Base Excess -11.4 Oxygen Delivery Device NASAL CANNULA Blood Gas Liter Flow 2 Urine Color LIGHT-YELLOW Urine Turbidity CLEAR Urine pH 5.0 Urine Specific [place] 1.029 Urine Protein NEG Urine Glucose (UA) 1000 Urine Ketones 10 Urine Occult Blood SMALL Urine Nitrite NEG Urine Bilirubin NEG Urine Urobilinogen LESS THAN 2.0 Urine Leukocyte Esterase NEG Urine RBC LESS THAN 1 Urine WBC 1 Microscopic Urinalysis Comment CULT NOT INDICATED Test 12/12/16 13:15 B-Type Natriuretic Peptide 145 Date/Time Procedure Status Source Growth 12/12/16 12:05 Aerobic Blood Culture Received Blood Peripheral Pending 12/12/16 12:05 Anaerobic Blood Culture Received Blood Peripheral Pending Result Diagram: 12/12/16 1153 12/12/16 1153 Imaging Chest x-ray shows ? mediastinal widening Septic Shock Reassessment Heart: Other (tachycardic) Lungs: Clear Skin: Cold Peripheral Pulses: Weak Right Radial Weak Left Radial Assessment and Plan Assessment and Plan NEURO: Acute metabolic encephalopathy - Secondary to DKA and sepsis - Minimize sedation RESP: Respiratory insufficiency - Nasal cannula oxygen - DuoNeb every 6 hours when necessary CV: Tachycardia/source Troponin elevation/NSTEMI Lactic acidosis History of hypertension History of dyslipidemia - Normal saline IV fluids 5L bolus and intravenous fluid per DKA protocol - Cardiology consulted Dr. Burnett. Start IV heparin, started on aspirin and metoprolol - Check serial troponins, 2d echo - Evaluation for cardiac catheterization once more stable GI: Liver cirrhosis - Nothing by mouth except meds - Check ammonia level : Acute kidney failure - Monitor renal function closely. Manrique catheter. - Acute kidney failure secondary to severe dehydration/ATN - Aggressive fluid resuscitation as above ID: Severe sepsis source unclear - Received IV vancomycin and Zosyn in the ED. - Continue renally dosed Zosyn - Follow-up on blood urine cultures HEME: - Monitor CBC, CMP, coags ENDO: DKA with severe hyperglycemia, Blood sugar 1717 Severe hypokalemia - Aggressive potassium replacement and initiate DKA protocol - Target blood sugar reduction about 50 meq/hour PROPH: - Bilateral lower extremity SCDs. IV Protonix and IV Heparin LINES: - Right subclavian central line placed CC time 90 min Patient presented to the ED with extreme dehydration-year elevated blood sugar at 1717, currently critically ill with DKA, acute kidney failure, severe sepsis , lactic acidosis and encephalopathy. He also has no ST elevation ND. With multiorgan failure height predicted mortality Code Status Full Discussed Condition With Drs. Newton and Lex Problem Qualifiers (1) DKA (diabetic ketoacidoses): Qualified Code: E13.10 - Diabetic ketoacidosis without coma associated with type 2 diabetes mellitus (2) Type 2 diabetes mellitus: (3) Cirrhosis of liver: Ivory Benavides MD Dec 12, 2016 15:49
--- NOTE | 2016-12-12 16:39 | EKG ---
Date Performed: 12/12/2016 Time Performed: 14:58:36 PTAGE: 66 years EKG: Baseline artifact precludes accurate interpretation of rhythm. Tachycardia present. Septal myocardial infarction Would repeat electrocardiogram PREVIOUS TRACING : 12/12/2016 11.47 DOCTOR: Celso Gomes Interpretating Date/Time 12/12/2016 16:36:39
[2016-12-12] MEDS ORDERED: MORPHINE SULFATE 4 MG/ML INJ IV ONE (16:45)
[2016-12-12] MEDS ORDERED: PILL SPLITTER OTHER PRN (16:45)
[2016-12-12] MEDS ORDERED: RESP: ALBUTEROL 2.5 MG/IPRATROPIUM 0.5 MG NEB (PRN) NEB (17:15)
--- NOTE | 2016-12-12 17:19 | PD.PROCEDR ---
Central Line Procedure REASON FOR PROCEDURE Central venous access PROCEDURE PERFORMED Central line placement: R subclavian central ine CONSENT Informed consent for procedure was obtained and time out performed ANESTHESIA Local injection of 1% Lidocaine DESCRIPTION OF THE PROCEDURE The patient was placed in supine, mild Trendelenburg position. The area was exposed and cleansed with ChloraPrep, times two. Large sterile drape was used to cover the patient, with the site exposed, under sterile conditions including cap, face mask, sterile gown, and sterile gloves. On single attempt, the introducer needle was inserted with negative pressure in syringe and venous flash was obtained. The guide wire was then advanced without any restriction and the needle was removed. The dilator was used without any complications. Using Seldinger technique the 20 CM 7F catheter was advanced over the guide wire to a depth of 18 CM centimeters. The guide wire was removed. All ports were aspirated with dark venous blood return and flushed easily with sterile saline. All ports were capped. Antibiotic disc was placed around central line at puncture site. The central line was secured to the skin with two interrupted 2.0 silk sutures. The area was bandaged with sterile see-through central line bandage. COMPLICATIONS: No apparent complications ESTIMATED BLOOD LOSS: Less than 1 cc. Ivory Benavides MD Dec 12, 2016 17:19
--- NOTE | 2016-12-12 17:40 | RADRPT ---
EXAM DATE/TIME: 12/12/2016 17:10 [place] COMPARISON: CHEST SINGLE AP, December 12, 2016, 11:49. INDICATIONS : Central line placement. MEDICAL HISTORY : Diabetes mellitus type II. Hypertension SURGICAL HISTORY : None. ENCOUNTER: Initial ACUITY: 1 day PAIN SCORE: 0/10 LOCATION: Bilateral chest FINDINGS: A right subclavian central line has been inserted. Lungs remain well-aerated without evidence of pneumothorax. Mild cardiomegaly is stable. CONCLUSION: Interval placement of a right subclavian central venous catheter which is in good position. No evidence of pneumothorax. Otherwise stable chest. Pb Alvarado MD on December 12, 2016 at 17:36 Board Certified Radiologist. This report was verified electronically.
[2016-12-12] MEDS: ASPIRIN EC 81 MG TABEC PO SCH (17:51)
[2016-12-12] MEDS: METOPROLOL TARTRATE 25 MG TAB PO SCH ×2 (17:52→22:02)
[2016-12-12] MEDS: HEPARIN-D5W INJ 250 ML IV SCH (17:54)
[2016-12-12 22:02] LABS: ALKALINE PHOSPHATASE 155 U/L (45-117); ANION GAP 14 MEQ/L (5-15); AST (GOT) 51 U/L (15-37); BICARBONATE 16.2 MEQ/L (21.0-32.0); CHLORIDE 112 MEQ/L (98-107); GLOMERULAR FILTRATION RATE 36 ML/MIN (>89); MAGNESIUM 2.4 MG/DL (1.5-2.5); POTASSIUM 3.2 MEQ/L (3.5-5.1); SODIUM (NA) 142 MEQ/L (136-145); TOTAL BILIRUBIN ADULT 0.7 MG/DL (0.2-1.0)
[2016-12-12] MEDS: PIPERACIL-TAZO 3.375 GM PREMIX 50 ML IV SCH (22:02)
[2016-12-12] MEDS: SODIUM CHLOR 0.9% 1000 ML INJ 1,000 ML IV SCH (22:03)
[2016-12-12 22:06] LABS: ALT (GPT) 35 U/L (12-78); BLOOD UREA NITROGEN 18 MG/DL (7-18)
[2016-12-12] MEDS: POTASSIUM CHLOR 40 MEQ PREMIX 100 ML IV PRN (22:35)
[2016-12-12] MEDS ORDERED: CLOPIDOGREL 300 MG TAB PO ONE (23:15)
--- NOTE | 2016-12-12 23:47 | MB ---
cc: TRANG LUNA DO DATE OF CONSULTATION December 12, 2016 REASON FOR CONSULTATION Elevation of troponins. HISTORY OF PRESENT ILLNESS Manoj Nelson is a pleasant 66-year-old male who was brought in by EMS due to severe weakness and lethargy. Apparently, he had been noncompliant with his insulin per EMS and his blood sugar reading was too high to calculate per EMS. He had a lot of empty bottles of Mountain Dew throughout the house. He has also been nauseous and having diarrhea for the past couple of days. He has been extremely weak. When he was found he was found on the ground with feces all around his body. It appears that he was on the floor for sometime before this. During his workup he was found to have a blood sugar of 1717 with a lactic acid of 6.9 and a troponin of 1.22. I was asked to see him in reference to his elevated troponin. In discussing with him he states that he has not had any chest pain or shortness of breath. Overall, he has just felt extremely weak. PAST MEDICAL HISTORY 1. Type 2 diabetes mellitus. 2. Hypertension. 3. Cirrhosis of the liver. 4. Dyslipidemia. 5. Kidney stones. PAST SURGICAL HISTORY 1. Renal stone removal. ALLERGIES IODINE. MEDICATIONS 1. Metoprolol tartrate 100 milligrams daily. 2. Metformin 1000 milligrams b.i.d. 3. Clonidine 0.1 milligrams daily. 4. Zetia 10 milligrams daily. 5. Zocor 40 milligrams daily. 6. Lantus 50 units subcu b.i.d. 7. Glipizide 5 milligrams b.i.d. FAMILY HISTORY Denies premature coronary artery disease or sudden cardiac within the family. SOCIAL HISTORY Denies tobacco or drug abuse. Does drink occasionally. REVIEW OF SYSTEMS 14-systems were reviewed including osteopathic pertinent positives and negatives above, otherwise, negative. PHYSICAL EXAMINATION VITAL SIGNS: Temperature 98.4, heart rate 100, blood pressure 132/70, respirations 28, pulse ox 99% on 2 liters. GENERAL: In general, the patient appears overall disheveled in no acute distress but alert, awake and oriented x3. HEENT: Extraocular muscles intact. Mucous membranes moist. NECK: Supple. No JVD at 45 degrees. No carotid bruits heard bilaterally. Carotid upstroke is brisk in nature. HEART: Heart is tachycardiac but regular rhythm. No murmurs, gallops or rubs noted. LUNGS: The lungs have decreased breath sounds bilaterally but no overt wheezes, rales or rhonchi. ABDOMEN: Abdomen is obese, nontender, nondistended. No organomegaly noted. EXTREMITIES: Show no clubbing, cyanosis or edema. Femoral and distal pulses intact bilaterally. NEUROLOGICALLY: No focal deficits. SKIN: Warm, dry and intact. OSTEOPATHIC: Mild lordosis. No kyphoscoliosis or paraspinal tender points. LABORATORY FINDINGS Hemoglobin 14.5, hematocrit 48.1, platelets 148. Potassium 2.6, BUN 18, creatinine 2.65, glucose 1717, lactic acid 6.9. Troponin 1.22 with a total creatinine kinase of 2392. CARDIOLOGY STUDIES Electrocardiogram (December 12, 2016 at 11:47) baseline artifact, probable sinus tachycardia, age indeterminate septal infarct. IMPRESSION 1. NSTEMI. 2. DKA. 3. Sepsis. 4. Lactic acidosis. 5. Acute kidney injury. 6. Significant hypokalemia. 7. Medical noncompliance. 8. Type 2 diabetes mellitus. 9. Cirrhosis of the liver. RECOMMENDATIONS 1. Mr. Nelson appears to be in DKA as well as have an elevated troponin. It is difficult at this time to determine whether DKA lead him into a type 2 NSTEMI versus a myocardial infarction leading him into the DKA. As with his noncompliance and he has no anginal symptoms most likely this is a type 2 spill in nature but we are unsure of his underlying coronary artery disease. 2. Eventually, he will need to undergo an ischemic evaluation and this will with either be by stress test or cardiac catheterization depending on his hospital course. 3. We will obtain a 2-D echo to look at his overall left ventricular function, cardiac structure and possible valvulopathies. 4. He will be placed on aspirin, Plavix and a heparin drip. 5. Once his other medical issues have been stabilized including his glucose level, lactic acidosis, hypokalemia and acute kidney injury, then we will further discuss with him consideration of ischemic evaluation. Thank you for allowing me to see Manoj Nelson. If there are any questions please do not hesitate to call. Trang Luna DO VGP/EO /10:58 PM /11:27 PM
[2016-12-13] VITALS (12 sets, daily range): BP systolic 125–147; BP diastolic 71–86; PULSE 88–105; RESP 18–22; TEMP 98.3–99.6; O2SAT 98–100
[2016-12-13 00:18] LABS: APTT (PATIENT) 43.8 SEC (24.3-30.1)
[2016-12-13] MEDS: SODIUM CHLOR 0.9% 1000 ML INJ 1,000 ML IV SCH ×3 (00:31→09:11)
[2016-12-13] MEDS: POTASSIUM CHLOR 40 MEQ PREMIX 100 ML IV PRN (00:44)
[2016-12-13] MEDS: CHLORHEXIDINE GLUCONATE 2 % 1 PACK (2 CLOTHS) TOP SCH (04:00)
[2016-12-13 04:05] LABS: BICARBONATE 16.2 MEQ/L (21.0-32.0); MAGNESIUM 2.4 MG/DL (1.5-2.5); POTASSIUM 5.2 MEQ/L (3.5-5.1)
--- NOTE | 2016-12-13 04:57 | EKG ---
Date Performed: 12/12/2016 Time Performed: 22:55:47 PTAGE: 66 years EKG: SINUS TACHYCARDIA LOW QRS VOLTAGE IN PRECORDIAL LEADS INFERIOR MYOCARDIAL INFARCTION , PROB ABLY OLD ANTEROSEPTAL MYOCARDIAL INFARCTION , OF INDETERMINATE AGE ABNORMAL ECG COMPARED TO PRIOR NAZARIO CTROCARDIOGRAM, ST segment changes are less marked. PREVIOUS TRACING : 12/12/2016 14.58 DOCTOR: Celso Gomes Interpretating Date/Time 12/13/2016 04:56:02
[2016-12-13] MEDS: METOPROLOL TARTRATE 25 MG TAB PO SCH ×3 (05:26→21:09)
[2016-12-13] MEDS: PIPERACIL-TAZO 3.375 GM PREMIX 50 ML IV SCH ×3 (05:26→21:09)
[2016-12-13] MEDS: ASPIRIN EC 81 MG TABEC PO SCH (09:11)
[2016-12-13] MEDS: CLOPIDOGREL 75 MG TAB PO SCH (09:11)
[2016-12-13] MEDS: POTASSIUM CHLOR 20 MEQ PREMIX 100 ML IV PRN ×3 (09:12→17:07)
[2016-12-13 09:28] LABS: APTT (PATIENT) 46.3 SEC (24.3-30.1)
[2016-12-13 10:29] LABS: MAGNESIUM 2.5 MG/DL (1.5-2.5); POTASSIUM 3.6 MEQ/L (3.5-5.1)
--- NOTE | 2016-12-13 13:02 | PD.CARD.PN ---
Subjective Subjective Remarks No events over night No chest pain, no shortness of breath Objective Medications Current Medications Medications (Trade) Dose Ordered Sig/Epi Route Start Time Stop Time Status Last Admin Sodium Chloride 1,000 ml @ 250 mls/hr Q4H IV 12/12/16 13:28 12/13/16 09:11 Dextrose/Sodium Chloride 1,000 ml @ 200 mls/hr Q5H IV 12/12/16 13:28 Insulin Human Regular 100 units/ Sodium Chloride 100 ml @ 0 mls/hr TITRATE IV 12/12/16 13:30 12/13/16 10:55 Potassium Chloride 100 ml @ 100 mls/hr Q1H PRN IV 12/12/16 13:30 Potassium Chloride 100 ml @ 50 mls/hr Q2H PRN IV 12/12/16 13:30 12/13/16 00:44 Potassium Chloride 100 ml @ 100 mls/hr Q1H PRN IV 12/12/16 13:30 Potassium Chloride 100 ml @ 100 mls/hr Q1H PRN IV 12/12/16 13:30 Potassium Chloride 100 ml @ 50 mls/hr Q2H PRN IV 12/12/16 13:30 12/13/16 10:55 Potassium Chloride 100 ml @ 50 mls/hr Q2H PRN IV 12/12/16 13:30 Potassium Chloride 100 ml @ 50 mls/hr Q2H PRN IV 12/12/16 13:30 (KCl 20 Meq Premix Inj) 100 ml @ 50 mls/hr Q2H PRN IV 12/12/16 13:30 (Sodium Bicarbonate 8.4% Inj) 100 meq UNSCH PRN IV 12/12/16 13:30 Sodium Bicarbonate 50 meq 50 meq UNSCH PRN IV 12/12/16 13:30 (Sodium Phosphate Inj/NS Inj) 105 ml @ 25 mls/hr UNSCH PRN IV 12/12/16 13:30 Miscellaneous Information 1 Q361D XX 12/12/16 13:30 (Chlorhexidine 2% Cloth) 3 pack Taper DAILY@04 TOP 12/13/16 04:00 12/09/17 03:59 12/13/16 04:00 Chlorhexidine Gluconate 3 pack 3 pack UNSCH PRN TOP 12/12/16 13:30 (Zosyn 3.375 Gm Premix) 50 ml @ 100 mls/hr Q8H IV 12/12/16 22:00 12/13/16 05:26 (Ecotrin Ec) 81 mg DAILY PO 12/12/16 16:00 12/13/16 09:11 Metoprolol Tartrate 12.5 mg 12.5 mg Q8HR PO 12/12/16 16:00 12/13/16 05:26 (Heparin-D5W Inj) 250 ml @ 0 mls/hr TITRATE IV 12/12/16 16:30 12/12/16 17:54 (Pill Splitter) 1 ea UNSCH PRN OTHER 12/12/16 16:45 (Plavix) 75 mg DAILY PO 12/13/16 09:00 12/13/16 09:11 Vital Signs / I&O Vital Signs Date Time Temp Pulse Resp B/P Pulse Ox O2 Delivery O2 Flow Rate FiO2 12/13/16 12:00 98.3 94 22 128/71 99 12/13/16 12:00 94 12/13/16 10:00 91 12/13/16 08:00 100 12/13/16 06:00 101 12/13/16 04:00 104 12/13/16 04:00 104 12/13/16 02:00 100 12/13/16 00:00 105 12/13/16 00:00 105 12/12/16 23:00 105 12/12/16 22:00 106 12/12/16 20:00 105 12/12/16 19:28 98 Nasal Cannula 3.00 12/12/16 17:33 95 Nasal Cannula 3.00 12/12/16 15:49 98.0 118 24 135/67 99 Nasal Cannula 2 12/12/16 15:30 113 12/12/16 14:00 115 28 99 Nasal Cannula 2 12/12/16 14:00 98.4 115 28 132/70 99 Nasal Cannula 2 I/O 12/12/16 12/12/16 12/12/16 12/13/16 12/13/16 12/13/16 07:00 15:00 23:00 07:00 15:00 23:00 Intake Total 4214 ml 1589 ml Output Total 2200 ml 850 ml Balance 2014 ml 739 ml Intake IV Total 4214 ml 1589 ml Output Urine Total 2200 ml 850 ml Physical Exam GENERAL: NAD, AAOx3, disheveled looking SKIN: Warm and dry. HEAD: Atraumatic. Normocephalic. EYES: Pupils equal and round. No scleral icterus. No injection or drainage. ENT: No nasal bleeding or discharge. Mucous membranes pink and moist. NECK: Trachea midline. No JVD. CARDIOVASCULAR: Tachy, regular RESPIRATORY: No accessory muscle use. Clear to auscultation. Breath sounds equal bilaterally. GASTROINTESTINAL: Abdomen soft, non-tender, nondistended. Hepatic and splenic margins not palpable. MUSCULOSKELETAL: Extremities without clubbing, cyanosis, or edema. No obvious deformities. NEUROLOGICAL: Awake and alert. No obvious cranial nerve deficits. Motor grossly within normal limits. Five out of 5 muscle strength in the arms and legs. Normal speech. PSYCHIATRIC: Appropriate mood and affect; insight and judgment normal. Laboratory Laboratory Tests Test 12/12/16 12/12/16 12/12/16 12/12/16 13:15 17:30 18:53 21:25 B-Type Natriuretic Peptide 145 PG/ML Nasal Screen MRSA (PCR) MRSA NOT DETECTED Random Glucose 1057 MG/DL 944 MG/DL Lactic Acid Level 3.1 mmol/L Ammonia 16 MCMOL/L Sodium Level 142 MEQ/L Potassium Level 3.2 MEQ/L Chloride Level 112 MEQ/L Carbon Dioxide Level 16.2 MEQ/L Anion Gap 14 MEQ/L Blood Urea Nitrogen 18 MG/DL Creatinine 1.89 MG/DL Estimat Glomerular Filtration 36 ML/MIN Rate Calcium Level 7.7 MG/DL Phosphorus Level 3.6 MG/DL Magnesium Level 2.4 MG/DL Total Bilirubin 0.7 MG/DL Aspartate Amino Transf 51 U/L (AST/SGOT) Alanine Aminotransferase 35 U/L (ALT/SGPT) Alkaline Phosphatase 155 U/L Troponin I 4.46 NG/ML Total Protein 6.2 GM/DL Albumin 2.8 GM/DL Test 12/12/16 12/12/16 12/13/16 12/13/16 23:00 23:40 00:50 02:30 Random Glucose 980 MG/DL 922 MG/DL 911 MG/DL Activated Partial 43.8 SEC Thromboplast Time Test 12/13/16 12/13/16 12/13/16 12/13/16 03:15 05:20 06:40 06:46 Sodium Level 145 MEQ/L Potassium Level 5.2 MEQ/L Chloride Level 115 MEQ/L Carbon Dioxide Level 16.2 MEQ/L Anion Gap 14 MEQ/L Blood Urea Nitrogen 22 MG/DL Creatinine 1.98 MG/DL Estimat Glomerular Filtration 34 ML/MIN Rate Random Glucose 885 MG/DL 858 MG/DL 807 MG/DL Calcium Level 7.6 MG/DL Phosphorus Level 3.4 MG/DL Magnesium Level 2.4 MG/DL Activated Partial 46.3 SEC Thromboplast Time Test 12/13/16 12/13/16 12/13/16 08:00 09:30 11:03 Potassium Level 3.8 MEQ/L 3.6 MEQ/L Random Glucose 754 MG/DL 682 MG/DL 586 MG/DL Sodium Level 148 MEQ/L Chloride Level 120 MEQ/L Carbon Dioxide Level 18.0 MEQ/L Anion Gap 10 MEQ/L Blood Urea Nitrogen 28 MG/DL Creatinine 2.04 MG/DL Estimat Glomerular Filtration 33 ML/MIN Rate Calcium Level 7.8 MG/DL Phosphorus Level 1.7 MG/DL Magnesium Level 2.5 MG/DL Assessment and Plan Problem List: (1) DKA (diabetic ketoacidoses) (2) NSTEMI (non-ST elevated myocardial infarction) (3) Medical non-compliance (4) Type 2 diabetes mellitus (5) Acute kidney failure (6) Lactic acidosis (7) Hypokalemia (8) Diabetic hyperosmolar non-ketotic state (9) Severe sepsis (10) Cirrhosis of liver (11) Poor personal hygiene Assessment and Plan 1) NSTEMI possible Type 1 vs 2 Con't heparin gtt/ASA/Plavix/BB 2) 2D echo pending 3) Will need ischemic evaluation after metabolic derangement is resolved ( elevated glucose, MARTINEZ, lactic acidosis) ... will plan on seeing on Friday to determine stress test vs. cardiac catheterization If any questions or concerns over the weekend, please call covering physician Problem Qualifiers (1) DKA (diabetic ketoacidoses): Qualified Code: E13.10 - Diabetic ketoacidosis without coma associated with type 2 diabetes mellitus (2) Type 2 diabetes mellitus: (3) Cirrhosis of liver: Delano Burnett DO Dec 13, 2016 13:02
[2016-12-13 13:24] LABS: APTT (PATIENT) 41.3 SEC (24.3-30.1)
--- NOTE | 2016-12-13 14:15 | HHI.CCPN ---
Subjective Remarks/Hospital Course Patient is a 66 yo white male with past medical history of type 2 diabetes, hypertension, dyslipidemia who was brought into the emergency department for evaluation of severe weakness and lethargy. Patient apparently has been noncompliant with his insulin as per EMS and multiple of empty bottles of Mountain Dew was found at his home. He was found to be in feces all around his body. Apparently patient fell and was not able to get off the floor for several hours. Lab work revealed leukocytosis at 16.2., VBG showed metabolic acidosis with pH of 7.24. HCO3 of 15, Potassium is low at 2.6. Blood glucose was extremely elevated at 1717, serum acetone was positive, I advised ED to replace atleast 160 meq potassium as there is risk of further hypokalemia with insulin infusion. Lactic acid is elevated at 6.9. Creatinine 2.69. CPK 2392. Pt empirically cover with vancomycin and zosyn. I evaluated the patient in the emergency department and then again in the ICU. He is critically ill, tremulous. Extremely dehydrated, tachycardic. Additional 2 L fluid bolus was ordered. DKA protocol initiated, after repeat CMP. Panculture sent. I have also placed a right subclavian central line to facilitate, faster potassium replacement and also for fluid resuscitation Subjective 12/13: Afebrile. Currently resting in bed. Asking what time it is at the present time. Slightly improved appetite. Denies chest pain or shortness of breath. Objective Vital Signs Date Time Temp Pulse Resp B/P Pulse Ox O2 Delivery O2 Flow Rate FiO2 12/13/16 12:00 98.3 94 22 128/71 99 12/12/16 19:28 Nasal Cannula 3.00 Intake and Output 12/12/16 12/12/16 12/13/16 08:00 16:00 00:00 Intake Total 4214 ml Output Total 2200 ml Balance 2014 ml Result Diagram: 12/12/16 1153 12/13/16 1245 Other Results Microbiology Date/Time Procedure Status Source Growth 12/12/16 12:05 Aerobic Blood Culture - Preliminary Resulted Blood Peripheral NO GROWTH IN 1 DAY 12/12/16 12:05 Anaerobic Blood Culture - Preliminary Resulted Blood Peripheral NO GROWTH IN 1 DAY Imaging Last Impressions Head CT 12/12/16 1201 Signed Impressions: Service Date/Time: November 13:06 - CONCLUSION: 1. Mild cerebral atrophy. 2. No acute infarct, acute hemorrhage, mass effect or extra axial fluid collections. Daniel Pisano MD Chest X-Ray 12/12/16 1138 Signed Impressions: Service Date/Time: , December 12, 2016 11:49 - CONCLUSION: 1. Questioned widened mediastinum. CT of the chest with contrast would be helpful for further evaluation of this finding. 2. Bibasilar streakiness consistent with atelectasis and/or fibrotic scarring. 3. Cardiomegaly. Daniel Pisano MD Objective Remarks GEN: 66-year-old obese male, resting in bed in no acute distress SKIN: Warm and dry. No rash HEAD: Atraumatic. Normocephalic. EYES: Pupils equal and round 4 mm reactive to light and accommodation bilaterally.. ENT: No nasal bleeding or discharge. NECK: Trachea midline. No JVD. CARDIOVASCULAR: RRR. S1, S2 no S4 without murmur RESPIRATORY: No accessory muscle use. Clear to auscultation. GASTROINTESTINAL: Abdomen soft, non-tender, obese. Hypoactive bowel sounds appreciated MUSCULOSKELETAL: Extremities without significant peripheral edema. NEUROLOGICAL: Awake and alert. Slightly tremulous. Poor historian. Motor grossly within normal limits. Normal sensation. A/P Assessment and Plan NEURO/PSYCH: Acute metabolic encephalopathy - Secondary to DKA and sepsis - Minimize sedation Acetaminophen if necessary for fever/pain RESP: Acute Respiratory insufficiency - Nasal cannula oxygen to maintain saturations greater than equal to 92% - DuoNeb every 6 hours when necessary - Chest x-ray revealed question of question mediastinal widening. No indications for follow-up at this point CV: Troponin elevation/NSTEMI Lactic acidosis History of hypertension History of dyslipidemia - Normal saline IV fluids 5L bolus and intravenous fluid per DKA protocol currently at 10 50 cc an hour normal saline - Cardiology consulted Dr. Burnett. Start IV heparin drip per protocol, started on aspirin 81 mg daily and Plavix 75 mg daily and metoprolol 12.5 mg every 8 - Check serial troponins, 2d echo all pending - Evaluation for cardiac catheterization once more stable likely on Friday - Lipid panel ordered for a.m. - At home on Toprol 100 mg twice a day and clonidine 0.1 mg by mouth daily for hypertension. At home on Zetia 10 mg daily Fish oil 1200 mg daily and Zocor 40 mg by mouth daily for dyslipidemia GI: Liver cirrhosis? Elevated AST likely cardiac related - Nothing by mouth except meds. Advance diet once blood sugar better controlled -Protonix for GI prophylaxis - More-Colace for bowel regimen : Acute kidney failure - Monitor renal function closely. Manrique catheter. - Acute kidney failure secondary to severe dehydration/ATN - Aggressive fluid resuscitation as above - Check urine electrolytes/eosinophils and renal ultrasound ID: Severe sepsis source unclear - Received IV vancomycin and Zosyn in the ED. - Continue renally dosed Zosyn - Follow-up on blood urine cultures HEME: Macrocytosis Leukocytosis Thrombocytopenia - Monitor CBC, CMP, coags ENDO: DKA with severe hyperglycemia, Blood sugar 1717 Hypo phosphatemia Hypo-hypernatremia -At home on Lantus 50 units twice a day, metformin 1000 g twice a day and glipizide 5 mg before meals. Currently on hold -Continue DKA insulin drip per ICU protocol. Last blood sugar 497. On 7 units. Accu-Cheks every hour. - Target blood sugar reduction about 50 /hour PROPH: - Bilateral lower extremity SCDs. IV Protonix and IV Heparin LINES: - Right subclavian central line placed by Dr. Benavides 12/12 day #2 CC time 35 minutes Patient presented to the ED with extreme dehydration-year elevated blood sugar at 1717, remains critically ill. Actively titrating insulin drip and IV fluids. Trending lactates, troponins. Ziyad Shepherd MD Dec 13, 2016 14:15
[2016-12-13] MEDS: DEXT 5%-NACL 0.9% 1000 ML INJ 1,000 ML IV SCH (14:28)
--- NOTE | 2016-12-13 14:34 | ECHRPT ---
Indication: CONCLUSIONS The left ventricle is not well visualized. Mild concentric left ventricular hypertrophy. The left ventricular systolic function is normal with an estimated ejection fraction in the range of 55-60%. Doppler parameters are consistent with impaired left ventricular relaxtion (grade 1 diastolic dysfun ction). The right ventricle is moderately dilated measuring about as big as the left ventricle. The function was very difficult to determine in different views. BP: 132 / 70 HR: 115 Rhythm: Sinus MEASUREMENTS (Male / Female) Normal Values Technical Quality:Very technically difficult study 2D ECHO LV Diastolic Diameter PLAX 4.8 cm 4.2 - 5.9 / 3.9 - 5.3 cm LV Systolic Diameter PLAX 3.5 cm IVS Diastolic Thickness 1.2 cm 0.6 - 1.0 / 0.6 - 0.9 cm LVPW Diastolic Thickness 1.2 cm 0.6 - 1.0 / 0.6 - 0.9 cm LV Relative Wall Thickness 0.5 RV Internal Dim ED PLAX 4.4 cm LVOT Diameter 1.8 cm Aortic Root Diameter 3.2 cm DOPPLER AV Peak Velocity 153.0 cm/s AV Peak Gradient 9.4 mmHg AV Mean Gradient 5.0 mmHg AV Velocity Time Integral 22.8 cm LVOT Peak Velocity 105.0 cm/s LVOT Peak Gradient 4.4 mmHg LVOT Velocity Time Integral 16.8 cm LVOT Cardiac Index 1905.8 cm/minm AV Area Cont Eq vti 1.9 cm AV Area Cont Eq pk 1.7 cm Mitral E Point Velocity 65.6 cm/s Mitral A Point Velocity 96.7 cm/s Mitral E to A Ratio 0.7 LV E' Lateral Velocity 8.2 cm/s Mitral E to LV E' Lateral Ratio 8.0 LV E' Septal Velocity 1.4 cm/s Mitral E to LV E' Septal Ratio 48.2 FINDINGS LEFT VENTRICLE The left ventricle is not well visualized. Mild concentric left ventricular hypertrophy. The left ventricular systolic function is normal with an estimated ejection fraction in the range of 55-60%. Doppler parameters are consistent with impaired left ventricular relaxtion (grade 1 diastolic dysfun ction). No obvious wall motion abnormalities. RIGHT VENTRICLE The right ventricle is moderately dilated measuring about as big as the left ventricle. The function was very difficult to determine in different views. The right ventricle measured 85 mm x 41 mm. LEFT ATRIUM The left atrial size is normal. RIGHT ATRIUM The right atrial size is normal. MITRAL VALVE Structurally normal mitral valve. No mitral valve stenosis or regurgitation. AORTIC VALVE Trileaflet aortic valve. No aortic valve stenosis or regurgitation. TRICUSPID VALVE The tricuspid valve is not well visualized. Attempted to get TR but unsuccessful. PULMONARY VALVE No pulmonary valve regurgitation or stenosis. VESSELS The inferior vena cava was not well visualized. PERICARDIUM No pericardial effusion. Sami Jones MD (Electronically Signed) Final Date:13 December 2016 14:33
[2016-12-13] MEDS ORDERED: SODIUM CHLOR 0.45% 1000 ML INJ 1,000 ML IV SCH (15:00)
[2016-12-13 16:57] LABS: BETA-HYDROXYBUTYRATE 0.08 MMOL/L (0.00-0.39); BICARBONATE 19.2 MEQ/L (21.0-32.0); MAGNESIUM 2.3 MG/DL (1.5-2.5); POTASSIUM 3.6 MEQ/L (3.5-5.1)
[2016-12-13] MEDS: HEPARIN-D5W INJ 250 ML IV SCH (17:09)
[2016-12-13] MEDS ORDERED: DEXTROSE 50% IN WATER 50 ML VIAL(D50) IV PRN (17:30)
[2016-12-13] MEDS ORDERED: GLUCAGON 1 MG/ML VIAL OTHER PRN (17:30)
[2016-12-13] MEDS ORDERED: INSULIN HUMAN REGULAR 1,000 UNITS/10 ML VIAL SQ ONE (18:00)
[2016-12-13] MEDS ORDERED: INSULIN DETEMIR 100 UNITS/ML VIAL SQ SCH (18:30)
--- NOTE | 2016-12-13 19:32 | RADRPT ---
EXAM DATE/TIME: 12/13/2016 18:07 [facility] COMPARISON: No previous studies available for comparison. INDICATIONS : Increased BUN/creatinine. MEDICAL HISTORY : Hypercholesterolemia. Hypertension. Renal calculi. Diabetes. Anticoagulant therapy, Coumadin. SURGICAL HISTORY : Kidney stone removal. Blood transfusions. ENCOUNTER: Initial ACUITY: 1 day PAIN SCORE: 2/10 LOCATION: Bilateral flank MEASUREMENTS: RIGHT KIDNEY: 14.2 x 5.6 x 5.6 cm LEFT KIDNEY: 13.8 x 7.2 x 7.2 cm FINDINGS: RIGHT KIDNEY: Renal cortex is normal in thickness and echotexture. No hydronephrosis, stone, or mass. LEFT KIDNEY: Suboptimal visualization secondary to the patient's body habitus. Renal cortex is normal in thickness and echotexture. No hydronephrosis, stone, or mass. BLADDER: A Manrique catheter is present in the bladder is decompressed. CONCLUSION: 1. The kidneys are grossly unremarkable in appearance with no definite evidence of hydronephrosis. Th ere was suboptimal visualization of the left kidney. 2. Manrique catheter in the bladder. 3. Small amount of free fluid. Celio Melton MD on December 13, 2016 at 19:29 Board Certified Radiologist. This report was verified electronically.
[2016-12-13] MEDS: INSULIN NovoLIN REGULAR SUPPLEMENTAL SCALE SQ SCH (20:00)
[2016-12-13] MEDS ORDERED: LORazepam 2 MG/ML VIAL IV ONE (21:30)
[2016-12-14] VITALS (18 sets, daily range): BP systolic 100–157; BP diastolic 59–97; PULSE 81–109; RESP 16–36; TEMP 97.6–99; O2SAT 94–100
[2016-12-14] MEDS ORDERED: LORazepam 2 MG/ML VIAL IV ONE (02:15)
[2016-12-14 02:47] LABS: ALT (GPT) 45 U/L (12-78); ANION GAP 7 MEQ/L (5-15); AST (GOT) 79 U/L (15-37); BICARBONATE 21.3 MEQ/L (21.0-32.0); BLOOD UREA NITROGEN 26 MG/DL (7-18); CHLORIDE 126 MEQ/L (98-107); GLOMERULAR FILTRATION RATE 46 ML/MIN (>89); MAGNESIUM 2.1 MG/DL (1.5-2.5); POTASSIUM 3.7 MEQ/L (3.5-5.1); SODIUM (NA) 154 MEQ/L (136-145)
[2016-12-14 02:56] LABS: ALKALINE PHOSPHATASE 121 U/L (45-117); HDL CHOLESTEROL 42.7 MG/DL (40.0-60.0); LDL CHOLESTEROL 57 MG/DL (0-99); TOTAL BILIRUBIN ADULT 0.5 MG/DL (0.2-1.0)
[2016-12-14 03:00] LABS: APTT (PATIENT) 39.9 SEC (24.3-30.1)
[2016-12-14 04:00] LABS: AUTOMATED NEUTROPHIL # 8.4 TH/MM3 (1.8-7.7); BASOPHIL % 0.2 % (0.0-2.0); EOSINOPHIL # 0.1 TH/MM3 (0-0.4); EOSINOPHIL % 1.2 % (0.0-4.0); HEMATOCRIT 37.3 % (39.0-51.0); LYMPH % 14.8 % (9.0-44.0); LYMPHOCYTE # 1.6 TH/MM3 (1.0-4.8); MEAN CELL VOLUME 92.9 FL (80.0-100.0); MEAN CORPUSCULAR HEMOGLOBIN 31.7 PG (27.0-34.0); MEAN CORPUSCULAR HGB CONC 34.1 % (32.0-36.0); MONO % 5.9 % (0.0-8.0); NEUT % 77.9 % (16.0-70.0); PLATELET COUNT 84 TH/MM3 (150-450); RED BLOOD COUNT 4.01 MIL/MM3 (4.50-5.90); RED CELL DISTRIBUTION WIDTH 13.8 % (11.6-17.2); WHITE BLOOD COUNT 10.7 TH/MM3 (4.0-11.0)
[2016-12-14] MEDS: INSULIN NovoLIN REGULAR SUPPLEMENTAL SCALE SQ SCH ×6 (04:00→20:00)
[2016-12-14] MEDS: CHLORHEXIDINE GLUCONATE 2 % 1 PACK (2 CLOTHS) TOP SCH (04:00)
[2016-12-14 04:02] LABS: HEMO FLAGS AUTO DIFF
[2016-12-14] MEDS: METOPROLOL TARTRATE 25 MG TAB PO SCH ×3 (05:27→22:12)
[2016-12-14] MEDS: PIPERACIL-TAZO 3.375 GM PREMIX 50 ML IV SCH ×3 (05:28→22:12)
[2016-12-14 06:59] LABS: BANDS 12 % (0-6); EOSINOPHILS 1 % (0-4); NEUTROPHIL # MANUAL DIFF 8.9 TH/MM3 (1.8-7.7); POLYS (SEG NEUTROPHILS) 71 % (16-70); WBC DIFF SAMPLE 100
[2016-12-14 07:00] LABS: OVALOCYTES 1+ (NORMAL); PLATELET ESTIMATE SMEAR LOW (NORMAL); PLATELET MORPHOLOGY NORMAL (NORMAL); SCAN/DIFF FINAL DIFF MANUAL
[2016-12-14] MEDS ORDERED: POTASSIUM PHOSPHATE INJ 30 MMOL in SODIUM CHLOR 0.9% 250 ML INJ 250 ML IV ONE (07:15)
[2016-12-14] MEDS ORDERED: LORazepam 1 MG TAB PO PRN (07:30)
[2016-12-14] MEDS ORDERED: LORazepam 2 MG TAB PO PRN (07:30)
[2016-12-14] MEDS ORDERED: FLUMAZENIL 0.5 MG/5 ML VIAL IV PUSH PRN (07:30)
[2016-12-14] MEDS ORDERED: LORazepam 2 MG/ML VIAL IV PUSH PRN ×4 (07:30)
[2016-12-14 07:43] LABS: BLOOD GAS BASE EXCESS -6.7 mmol/L (-2-2); BLOOD GAS CARBOXYHEMOGLOBIN 1.6 % (0-4); BLOOD GAS HCO3 17 mmol/L (22-26); BLOOD GAS O2 HGB SATURATION 92 % (90-100); BLOOD GAS OXYGEN CONTENT 16.3 Vol % (12.0-20.0); BLOOD GAS PCO2 29 mmHg (38-42); BLOOD GAS PO2 68 mmHg (61-120); BLOOD GAS TOTAL HGB 12.5 G/DL (12.0-16.0); CRITICAL VALUE NO; DRAW SITE RT RADIAL; LITER FLOW 2 L/M; NUMBER OF ARTERIAL PUNCTURES 1; OXYGEN DEVICE NASAL CANNULA; TEMP CORR TO 98.6; ULNAR PULSE PRESENT
[2016-12-14 07:44] LABS: STAT NO
[2016-12-14] MEDS ORDERED: POTASSIUM PHOSPHATE MONOBASIC 500 MG TAB PO PRN (07:45)
[2016-12-14] MEDS ORDERED: MAGNESIUM SULFATE INJ 4 GM in SODIUM CHLORIDE 0.9% INJ 92 ML IV PRN (07:45)
[2016-12-14] MEDS ORDERED: POTASSIUM PHOSPHATE MONOBASIC 500 MG TAB PO/TUBE PRN (07:45)
[2016-12-14] MEDS ORDERED: POTASSIUM CHLORIDE 25 MEQ EFFERVESCENT TAB PO PRN (07:45)
[2016-12-14] MEDS ORDERED: DEXMEDETOMIDINE INJ 200 MCG in SODIUM CHLORIDE 0.9% INJ 50 ML IV SCH (07:45)
[2016-12-14] MEDS ORDERED: MAGNESIUM OXIDE 400 MG TAB PO PRN (07:45)
[2016-12-14] MEDS ORDERED: POTASSIUM CHLOR 40 MEQ PREMIX 100 ML IV PRN (07:45)
[2016-12-14] MEDS ORDERED: MAGNESIUM SULFATE INJ 2 GM in SODIUM CHLORIDE 0.9% INJ 96 ML IV PRN (07:45)
[2016-12-14] MEDS ORDERED: POTASSIUM CHLOR 20 MEQ PREMIX 100 ML IV PRN ×2 (07:45)
[2016-12-14] MEDS ORDERED: SODIUM PHOSPHATE INJ 30 MMOL in SODIUM CHLOR 0.9% 250 ML INJ 240 ML IV PRN (07:45)
--- NOTE | 2016-12-14 07:52 | HHI.CCPN ---
Subjective Remarks/Hospital Course Patient is a 66 yo white male with past medical history of type 2 diabetes, hypertension, dyslipidemia who was brought into the emergency department for evaluation of severe weakness and lethargy. Patient apparently has been noncompliant with his insulin as per EMS and multiple of empty bottles of Mountain Dew was found at his home. He was found to be in feces all around his body. Apparently patient fell and was not able to get off the floor for several hours. Lab work revealed leukocytosis at 16.2., VBG showed metabolic acidosis with pH of 7.24. HCO3 of 15, Potassium is low at 2.6. Blood glucose was extremely elevated at 1717, serum acetone was positive, I advised ED to replace atleast 160 meq potassium as there is risk of further hypokalemia with insulin infusion. Lactic acid is elevated at 6.9. Creatinine 2.69. CPK 2392. Pt empirically cover with vancomycin and zosyn. I evaluated the patient in the emergency department and then again in the ICU. He is critically ill, tremulous. Extremely dehydrated, tachycardic. Additional 2 L fluid bolus was ordered. DKA protocol initiated, after repeat CMP. Panculture sent. I have also placed a right subclavian central line to facilitate, faster potassium replacement and also for fluid resuscitation 12/13: Afebrile. Currently resting in bed. Asking what time it is at the present time. Slightly improved appetite. Denies chest pain or shortness of breath. Subjective 12/14: Afebrile. Agitated overnight. Found out overnight drinks significant "French saki" alcohol daily. CIWA protocol initiated. Thiamine multivitamin and folate started. Insulin drip currently on schedule Levemir twice a day. Denies chest pain. Confused. Objective Vital Signs Date Time Temp Pulse Resp B/P Pulse Ox O2 Delivery O2 Flow Rate FiO2 12/14/16 06:00 103 12/14/16 04:00 98.5 20 155/80 96 12/12/16 19:28 Nasal Cannula 3.00 Intake and Output 12/13/16 12/13/16 12/14/16 08:00 16:00 00:00 Intake Total 1589 ml 2718 ml 745 ml Output Total 850 ml 700 ml 300 ml Balance 739 ml 2018 ml 445 ml Result Diagram: 12/14/16 0340 12/14/16 0200 Other Results Microbiology Date/Time Procedure Status Source Growth 12/12/16 12:05 Aerobic Blood Culture - Preliminary Resulted Blood Peripheral NO GROWTH IN 1 DAY 12/12/16 12:05 Anaerobic Blood Culture - Preliminary Resulted Blood Peripheral NO GROWTH IN 1 DAY Imaging Last Impressions Renal Ultrasound 12/13/16 0000 Signed Impressions: Service Date/Time: Tuesday, December 13, 2016 18:07 - CONCLUSION: 1. The kidneys are grossly unremarkable in appearance with no definite evidence of hydronephrosis. There was suboptimal visualization of the left kidney. 2. Manrique catheter in the bladder. 3. Small amount of free fluid. Celio Melton MD Head CT 12/12/16 1201 Signed Impressions: Service Date/Time: November 13:06 - CONCLUSION: 1. Mild cerebral atrophy. 2. No acute infarct, acute hemorrhage, mass effect or extra axial fluid collections. Daniel Pisano MD Chest X-Ray 12/12/16 1138 Signed Impressions: Service Date/Time: November 11:49 - CONCLUSION: 1. Questioned widened mediastinum. CT of the chest with contrast would be helpful for further evaluation of this finding. 2. Bibasilar streakiness consistent with atelectasis and/or fibrotic scarring. 3. Cardiomegaly. Daniel Pisano MD Objective Remarks GEN: 66-year-old obese male, resting in bed in mildly agitated SKIN: Warm and dry. No rash HEAD: Atraumatic. Normocephalic. EYES: Pupils equal and round 4 mm reactive to light and accommodation bilaterally.. ENT: No nasal bleeding or discharge. NECK: Trachea midline. No JVD. CARDIOVASCULAR: Tachycardic, RR. S1, S2 no S4 without murmur RESPIRATORY: No accessory muscle use. Clear to auscultation. No wheezes rales or rhonchi. GASTROINTESTINAL: Abdomen soft, non-tender, obese. Hypoactive bowel sounds appreciated MUSCULOSKELETAL: Extremities without significant peripheral edema. Chronic venous stasis bilateral lower extremity's. NEUROLOGICAL: Awake and alert. Slightly tremulous. Poor historian. Motor grossly within normal limits. Normal sensation. Vascular Central Line Catheter: Yes Assessment to: Continue Date of Insertion: Dec 12, 2016 Line: Central Venous Catheter Side: Right Location: Subclavian A/P Assessment and Plan NEURO/PSYCH: Acute metabolic encephalopathy EtOH - Secondary to DKA and sepsis and now possibly secondary to EtOH withdrawal CIWA protocol initiated Thiamine, folate and multivitamin daily CT head today due to altered mental status while on heparin drip EtOH withdrawal caution protocol initiated Acetaminophen if necessary for fever/pain RESP: Acute Respiratory insufficiency - Nasal cannula oxygen to maintain saturations greater than equal to 92% - DuoNeb every 6 hours when necessary - Chest x-ray revealed question of mediastinal widening. No indications for follow-up at this point CV: Troponin elevation/NSTEMI Lactic acidosis History of hypertension History of dyslipidemia Grade 1 diastolic dysfunction -We'll start on normal saline at 100 cc an hour 3 L due to hyponatremia - Cardiology consulted Dr. Burnett. Start IV heparin drip per protocol, started on aspirin 81 mg daily and Plavix 75 mg daily and metoprolol 12.5 mg every 8 -Troponins trending downward last 2.32. -2d echo 12/13 revealed EF 5560%. LVH. Right ventricular rate. Grade 1 diastolic dysfunction. - Evaluation for cardiac catheterization once more stable likely on Friday and creatinine normalized - Lipid panel ordered revealed total cholesterol 118. LDL 57. HDL 42. Triglycerides 94. - At home on Toprol 100 mg twice a day and clonidine 0.1 mg by mouth daily for hypertension. At home on Zetia 10 mg daily Fish oil 1200 mg daily and Zocor 40 mg by mouth daily for dyslipidemia GI: Liver cirrhosis? Elevated AST likely cardiac related -Currently on full liquid diet -Protonix for GI prophylaxis - More-Colace for bowel regimen. Add lactulose twice a day : Acute kidney failure - Monitor renal function closely. Manrique catheter. - Acute kidney failure secondary to severe dehydration/ATN - Aggressive fluid resuscitation as above -Negative urine eosinophils. Prerenal indices. Negative hydronephrosis on renal ultrasound. ID: Severe sepsis source unclear - Received IV vancomycin and Zosyn in the ED. - Continue renally dosed Zosyn day #3. - Follow-up on blood urine cultures no growth today HEME: Macrocytosis Leukocytosis Thrombocytopenia - Monitor CBC, CMP, coags ENDO: DKA with severe hyperglycemia, Blood sugar 1717 Hypo phosphatemia Hypo-hypernatremia -At home on Lantus 50 units twice a day, metformin 1000 g twice a day and glipizide 5 mg before meals. Currently on Levemir 40 units twice a day with high sliding scale insulin Accu-Cheks every 4 hours. 35 units sliding scale since off insulin drip. PROPH: - Bilateral lower extremity SCDs. IV Protonix and IV Heparin LINES: - Right subclavian central line placed by Dr. Benavides 12/12 day #3 Level II Ziyad Shepherd MD Dec 14, 2016 07:52
[2016-12-14] MEDS: SODIUM CHLORIDE 23.4% INJ 38.5 MEQ in WATER STERILE FOR INJ 1,000 ML IV SCH ×2 (08:31→17:21)
[2016-12-14] MEDS: ASPIRIN EC 81 MG TABEC PO SCH (08:32)
[2016-12-14] MEDS: FOLIC ACID 1 MG TAB PO SCH (08:32)
[2016-12-14] MEDS: MULTIVITAMIN TAB PO SCH (08:33)
[2016-12-14] MEDS: CLOPIDOGREL 75 MG TAB PO SCH (08:33)
[2016-12-14] MEDS: INSULIN DETEMIR 100 UNITS/ML VIAL SQ SCH ×2 (08:36→20:48)
[2016-12-14] MEDS: LACTULOSE SYRUP 20 GM/30 ML CUP PO SCH ×2 (09:00→20:44)
[2016-12-14] MEDS ORDERED: QUEtiapine FUMARATE 25 MG TAB PO SCH (09:00)
--- NOTE | 2016-12-14 09:29 | RADRPT ---
EXAM DATE/TIME: 12/14/2016 09:12 [facility] COMPARISON: CT BRAIN W/O CONTRAST, December 12, 2016, 13:06. INDICATIONS : Altered mental status. RADIATION DOSE: 61.44 CTDIvol (mGy) MEDICAL HISTORY : Hypertension. SURGICAL HISTORY : None. ENCOUNTER: Initial ACUITY: 1 day PAIN SCALE: Non-responsive LOCATION: cranial TECHNIQUE: Multiple contiguous axial images were obtained of the head. Using automated exposure control and adj ustment of the mA and/or kV according to patient size, radiation dose was kept as low as reasonably a chievable to obtain optimal diagnostic quality images. DICOM format image data is available electro nically for review and comparison. FINDINGS: CEREBRUM: The ventricles are normal for age. No evidence of midline shift, mass lesion, hemorrhage or acute in farction. No extra-axial fluid collections are seen. POSTERIOR FOSSA: The cerebellum and brainstem are intact. The 4th ventricle is midline. The cerebellopontine angle i s unremarkable. EXTRACRANIAL: The visualized portion of the orbits is intact. SKULL: The calvaria is intact. No evidence of skull fracture. CONCLUSION: No acute disease. Omar Holland MD on December 14, 2016 at 9:27 Board Certified Radiologist. This report was verified electronically.
[2016-12-14] MEDS ORDERED: ETOMIDATE 40 MG/20 ML VIAL ONE (12:09)
[2016-12-14] MEDS ORDERED: PROPOFOL 1000 MG/100 ML INJ 100 ML ONE (12:10)
[2016-12-14] MEDS ORDERED: ROCURONIUM INJ 50 MG/5 ML VIAL ONE (12:10)
[2016-12-14] MEDS ORDERED: fentaNYL DRIP 250 ML IV SCH (12:30)
[2016-12-14] MEDS ORDERED: PROPOFOL 1000 MG/100 ML INJ 100 ML IV SCH (12:30)
[2016-12-14] MEDS ORDERED: ROCURONIUM INJ 100 MG/10 ML VIAL IV ONE (12:30)
[2016-12-14] MEDS ORDERED: ETOMIDATE 40 MG/20 ML VIAL IV PUSH ONE (12:30)
--- NOTE | 2016-12-14 12:34 | PD.PROCEDR ---
Procedure Note Procedure DATE: 12/14/2016 PROCEDURE: Orotracheal intubation INDICATION: Altered mental status likely EtOH withdrawal tachypnea DETAILS OF PROCEDURE The patient was placed in optimal position and preoxygenated with 100% FiO2 via bag valve mask. At the start oxygen saturation was 98 %. The patient was administered 20 mg etomidate IV. I entered the oropharynx with a size 4 GVL Glidescope blade and obtained a grade 1 view of the airway. On single attempt a size 8.5 cuffed endotracheal tube was passed through the vocal cords. Correct tube location was confirmed with end tidal CO2 detector and by auscultating over bilateral lung linder. The endotracheal tube was secured with adhesive tape at a depth of 24 cm at the lips. The patient was connected to the ventilator. The patient tolerated the procedure well without any apparent complications. Oxygen saturations were maintained greater than 95% all times. STAT chest x-ray pending at time of dictation. Ziyad Shepherd MD Dec 14, 2016 12:34
[2016-12-14] MEDS: PROPOFOL 1000 MG/100 ML INJ 100 ML IV SCH ×2 (13:06→20:53)
[2016-12-14] MEDS: fentaNYL DRIP 250 ML IV SCH (13:06)
[2016-12-14] MEDS: THIAMINE INJ 100 MG in SODIUM CHLORIDE 0.9% INJ 100 ML IV SCH (13:07)
--- NOTE | 2016-12-14 13:22 | RADRPT ---
EXAM DATE/TIME: 12/14/2016 12:44 [facility] COMPARISON: CHEST SINGLE AP, December 12, 2016, 17:10. INDICATIONS : Post intubation. MEDICAL HISTORY : Diabetes mellitus type II. Hypertension SURGICAL HISTORY : None. ENCOUNTER: Subsequent ACUITY: 3 days PAIN SCORE: Non-responsive. LOCATION: Bilateral chest FINDINGS: Endotracheal tube in satisfactory position. NG enters stomach. Right central line in superior vena ca va. Mild basal airspace disease. No significant effusion. No pneumothorax. CONCLUSION: 1. Intubation with endotracheal tube in satisfactory position. NG enters stomach. Mild basal airspace disease. Edgardo Alarcon MD on December 14, 2016 at 13:19 Board Certified Radiologist. This report was verified electronically.
[2016-12-14 13:45] LABS: BLOOD GAS BASE EXCESS -7.5 mmol/L (-2-2); BLOOD GAS CARBOXYHEMOGLOBIN 1.4 % (0-4); BLOOD GAS HCO3 17 mmol/L (22-26); BLOOD GAS METHEMOGLOBIN 0.9 % (0-2); BLOOD GAS O2 HGB SATURATION 97 % (90-100); BLOOD GAS OXYGEN CONTENT 16.5 Vol % (12.0-20.0); BLOOD GAS PCO2 34 mmHg (38-42); BLOOD GAS PO2 191 mmHg (61-120); BLOOD GAS TOTAL HGB 11.8 G/DL (12.0-16.0); CRITICAL VALUE NO; DRAW SITE RT RADIAL; FIO2 100 %; NUMBER OF ARTERIAL PUNCTURES 1; OXYGEN DEVICE VENTILATOR; STAT NO; TEMP CORR TO 98.6; ULNAR PULSE PRESENT; VENT SETTINGS SEE COMMENTS
[2016-12-14] MEDS ORDERED: TERBUTALINE INJ 1 MG/ML AMP SQ PRN (15:00)
[2016-12-14] MEDS ORDERED: NOREPINEPHRINE-DEXTROSE DRIP 250 ML IV SCH (15:00)
[2016-12-14] MEDS: RESP: ALBUTEROL 2.5 MG/IPRATROPIUM 0.5 MG NEB (SCH) NEB ×2 (15:47→19:53)
[2016-12-14] MEDS ORDERED: SODIUM BICARBONATE 8.4% INJ 150 MEQ in WATER STERILE FOR INJ 850 ML IV SCH (16:00)
[2016-12-14 16:34] LABS: POTASSIUM 4.1 MEQ/L (3.5-5.1)
[2016-12-14] MEDS: JUVEN POWDER 1 PACK G-TUBE SCH (20:45)
[2016-12-14] MEDS: CHLORHEXIDINE 0.12% (ORAL KIT) 15 ML CUP MT SCH (20:45)
[2016-12-14] MEDS: HEPARIN-D5W INJ 250 ML IV SCH (20:50)
[2016-12-15] VITALS (23 sets, daily range): BP systolic 103–154; BP diastolic 60–89; PULSE 82–116; RESP 14–18; TEMP 98.2–98.9; O2SAT 99–100
[2016-12-15] MEDS: RESP: ALBUTEROL 2.5 MG/IPRATROPIUM 0.5 MG NEB (SCH) NEB ×4 (03:47→19:57)
[2016-12-15] MEDS: INSULIN NovoLIN REGULAR SUPPLEMENTAL SCALE SQ SCH ×5 (04:00→20:00)
[2016-12-15] MEDS: CHLORHEXIDINE GLUCONATE 2 % 1 PACK (2 CLOTHS) TOP SCH (04:00)
[2016-12-15] MEDS: SODIUM CHLORIDE 23.4% INJ 38.5 MEQ in WATER STERILE FOR INJ 1,000 ML IV SCH ×4 (04:17→20:47)
[2016-12-15] MEDS: PROPOFOL 1000 MG/100 ML INJ 100 ML IV SCH ×3 (04:21→18:46)
[2016-12-15 04:47] LABS: BASOPHIL % 0.7 % (0.0-2.0); EOSINOPHIL # 0.2 TH/MM3 (0-0.4); EOSINOPHIL % 3.2 % (0.0-4.0); HEMATOCRIT 35.7 % (39.0-51.0); LYMPH % 26.4 % (9.0-44.0); LYMPHOCYTE # 1.6 TH/MM3 (1.0-4.8); MEAN CELL VOLUME 93.9 FL (80.0-100.0); MEAN CORPUSCULAR HEMOGLOBIN 31.7 PG (27.0-34.0); MEAN CORPUSCULAR HGB CONC 33.7 % (32.0-36.0); MONO % 4.8 % (0.0-8.0); NEUT % 64.9 % (16.0-70.0); PLATELET COUNT 57 TH/MM3 (150-450); RED CELL DISTRIBUTION WIDTH 14.2 % (11.6-17.2); WHITE BLOOD COUNT 6.1 TH/MM3 (4.0-11.0)
[2016-12-15 04:49] LABS: HEMO FLAGS AUTO DIFF
[2016-12-15 04:59] LABS: APTT (PATIENT) 33.3 SEC (24.3-30.1)
[2016-12-15 05:18] LABS: BICARBONATE 25.9 MEQ/L (21.0-32.0); MAGNESIUM 2.1 MG/DL (1.5-2.5); POTASSIUM 3.4 MEQ/L (3.5-5.1)
[2016-12-15 05:45] LABS: PLATELET ESTIMATE SMEAR LOW (NORMAL); PLATELET MORPHOLOGY NORMAL (NORMAL); SCAN/DIFF AUTO DIFF CONFIRMED
[2016-12-15] MEDS ORDERED: FREE WATER G-TUBE SCH (06:00)
[2016-12-15] MEDS: POTASSIUM CHLOR 40 MEQ PREMIX 100 ML IV PRN (06:08)
[2016-12-15] MEDS: PIPERACIL-TAZO 3.375 GM PREMIX 50 ML IV SCH (06:09)
[2016-12-15] MEDS: METOPROLOL TARTRATE 25 MG TAB PO SCH ×3 (06:09→22:38)
[2016-12-15] MEDS: fentaNYL DRIP 250 ML IV SCH ×2 (06:48→20:43)
[2016-12-15] MEDS: CLOPIDOGREL 75 MG TAB PO SCH (08:33)
[2016-12-15] MEDS: ASPIRIN EC 81 MG TABEC PO SCH (08:33)
[2016-12-15] MEDS: MULTIVITAMIN TAB PO SCH (08:33)
[2016-12-15] MEDS: THIAMINE INJ 100 MG in SODIUM CHLORIDE 0.9% INJ 100 ML IV SCH (08:33)
[2016-12-15] MEDS: LACTULOSE SYRUP 20 GM/30 ML CUP PO SCH (08:33)
[2016-12-15] MEDS: FOLIC ACID 1 MG TAB PO SCH (08:33)
[2016-12-15] MEDS: CHLORHEXIDINE 0.12% (ORAL KIT) 15 ML CUP MT SCH ×2 (08:34→20:48)
[2016-12-15] MEDS: JUVEN POWDER 1 PACK G-TUBE SCH (08:34)
[2016-12-15] MEDS: INSULIN DETEMIR 100 UNITS/ML VIAL SQ SCH (09:00)
--- NOTE | 2016-12-15 10:37 | HHI.CCPN ---
Subjective Remarks/Hospital Course Patient is a 66 yo white male with past medical history of type 2 diabetes, hypertension, dyslipidemia who was brought into the emergency department for evaluation of severe weakness and lethargy. Patient apparently has been noncompliant with his insulin as per EMS and multiple of empty bottles of Mountain Dew was found at his home. He was found to be in feces all around his body. Apparently patient fell and was not able to get off the floor for several hours. Lab work revealed leukocytosis at 16.2., VBG showed metabolic acidosis with pH of 7.24. HCO3 of 15, Potassium is low at 2.6. Blood glucose was extremely elevated at 1717, serum acetone was positive, I advised ED to replace atleast 160 meq potassium as there is risk of further hypokalemia with insulin infusion. Lactic acid is elevated at 6.9. Creatinine 2.69. CPK 2392. Pt empirically cover with vancomycin and zosyn. I evaluated the patient in the emergency department and then again in the ICU. He is critically ill, tremulous. Extremely dehydrated, tachycardic. Additional 2 L fluid bolus was ordered. DKA protocol initiated, after repeat CMP. Panculture sent. I have also placed a right subclavian central line to facilitate, faster potassium replacement and also for fluid resuscitation 12/13: Afebrile. Currently resting in bed. Asking what time it is at the present time. Slightly improved appetite. Denies chest pain or shortness of breath. 12/14: Afebrile. Agitated overnight. Found out overnight drinks significant "[place] saki" alcohol daily. CIWA protocol initiated. Thiamine multivitamin and folate started. Insulin drip currently on schedule Levemir twice a day. Denies chest pain. Confused. Subjective 12/15: Afebrile. Intubated yesterday due to altered mental status/likely EtOH withdrawals. This a.m., noted post decrease to 84-57 on heparin drip. RN states melanotic stool. Hemoglobin appears stable however will check serial hemoglobin. Hemoccult still pending. Will make nothing by mouth except for meds. Continue aspirin and Plavix in light of non-STEMI. Objective Vital Signs Date Time Temp Pulse Resp B/P Pulse Ox O2 Delivery O2 Flow Rate FiO2 12/15/16 07:45 99 40 12/15/16 06:00 98 12/15/16 06:00 17 133/74 12/15/16 04:00 98.2 12/14/16 08:09 Nasal Cannula 2.00 Intake and Output 12/14/16 12/14/16 12/15/16 08:00 16:00 00:00 Intake Total 257 ml 831 ml 733 ml Output Total 400 ml 350 ml 375 ml Balance -143 ml 481 ml 358 ml Result Diagram: 12/15/16 0409 12/15/16 0409 Other Results Microbiology Date/Time Procedure Status Source Growth 12/15/16 05:15 Stool Occult Blood (LUIS) Received Stool Stool Pending 12/14/16 16:00 Gram Stain - Final Resulted Sputum Endotracheal 12/14/16 16:00 Sputum Culture Resulted Sputum Endotracheal Pending 12/12/16 12:05 Aerobic Blood Culture - Preliminary Resulted Blood Peripheral NO GROWTH IN 2 DAYS 12/12/16 12:05 Anaerobic Blood Culture - Preliminary Resulted Blood Peripheral NO GROWTH IN 2 DAYS Imaging Last Impressions Head CT 12/14/16 0000 Signed Impressions: Service Date/Time: Wednesday, December 14, 2016 09:12 - CONCLUSION: No acute disease. Omar Holland MD Chest X-Ray 12/14/16 0000 Signed Impressions: Service Date/Time: Wednesday, December 14, 2016 12:44 - CONCLUSION: 1. Intubation with endotracheal tube in satisfactory position. NG enters stomach. Mild basal airspace disease. Edgardo Alarcon MD Renal Ultrasound 12/13/16 0000 Signed Impressions: Service Date/Time: Tuesday, December 13, 2016 18:07 - CONCLUSION: 1. The kidneys are grossly unremarkable in appearance with no definite evidence of hydronephrosis. There was suboptimal visualization of the left kidney. 2. Manrique catheter in the bladder. 3. Small amount of free fluid. Celio Melton MD Objective Remarks GEN: 66-year-old obese male, critically ill and orotracheally intubated SKIN: Warm and dry. No rash HEAD: Atraumatic. Normocephalic. EYES: Pupils equal and round 4 mm reactive to light and accommodation bilaterally.. ENT: No nasal bleeding or discharge. NECK: Trachea midline. No JVD. CARDIOVASCULAR: Distant. RRR. S1, S2 no S4 without murmur or clicks, gallops or rubs RESPIRATORY: Diminished breath sounds due to body habitus. No wheezes rales or rhonchi. GASTROINTESTINAL: Abdomen soft, non-tender, obese. Hypoactive bowel sounds appreciated MUSCULOSKELETAL: Extremities without significant peripheral edema. Chronic venous stasis bilateral lower extremity's. NEUROLOGICAL: Arousable on the ventilator and will follow commands. Moves all 4 extremities spontaneously. Normal sensation. Urinary Catheter: Yes Assessment to: Continue Manrique insert reason: Prolonged Immobilization Vascular Central Line Catheter: Yes Assessment to: Continue Date of Insertion: Dec 12, 2016 Line: Central Venous Catheter Side: Right Location: Subclavian A/P Assessment and Plan NEURO/PSYCH: Acute metabolic encephalopathy EtOH - Secondary to DKA and sepsis and now possibly secondary to EtOH withdrawal CIWA protocol initiated Thiamine, folate and multivitamin to be continued daily CT head 03/16 revealed no acute intracranial findings EtOH withdrawal caution protocol initiated Acetaminophen if necessary for fever/pain RESP: Acute respiratory failure secondary to AMS [facility] /.06/20/39 Ventilator bundle - DuoNeb every 6 hours scheduled with albuterol every 2 hours when necessary Spontaneous breathing trials daily Chest x-ray 12/14 revealed no acute cardio pulmonary findings. - Chest x-ray revealed question of mediastinal widening. No indications for follow-up at this point CV: Troponin elevation/NSTEMI Lactic acidosis History of hypertension History of dyslipidemia Grade 1 diastolic dysfunction Currently on one quarter normal saline at 200 cc an hour. - Cardiology consulted Dr. Burnett. She was on IV heparin drip per protocol, however discontinued secondary to heme positive stools Continue on aspirin 81 mg daily and Plavix 75 mg daily and metoprolol 12.5 mg every 8 -Troponins trending downward last 2.32. Recheck in a.m. -2d echo 12/13 revealed EF 55-60%. LVH. Right ventricular rate. Grade 1 diastolic dysfunction. - Evaluation for cardiac catheterization once more stable likely on Friday and creatinine normalized - Lipid panel ordered revealed total cholesterol 118. LDL 57. HDL 42. Triglycerides 94. - At home on Toprol 100 mg twice a day and clonidine 0.1 mg by mouth daily for hypertension. At home on Zetia 10 mg daily Fish oil 1200 mg daily and Zocor 40 mg by mouth daily for dyslipidemia GI: Liver cirrhosis? Elevated AST likely cardiac related Will make nothing by mouth in light of possible lower GI bleed -Protonix IV twice a day for GI prophylaxis Bowel regimen currently on hold : Acute kidney failure - resolved - Monitor renal function closely. Manrique catheter. - Acute kidney failure secondary to severe dehydration/ATN resolved - Aggressive fluid resuscitation as above -Negative urine eosinophils. Prerenal indices. Negative hydronephrosis on renal ultrasound. ID: Severe sepsis source unclear - Received IV vancomycin and Zosyn in the ED. - Continue Zosyn day #4 - Follow-up on blood urine cultures and sputum cultures all no growth HEME: Macrocytosis Leukocytosis Thrombocytopenia - Monitor CBC, CMP, coags - HIT ordered - Check peripheral smear ENDO/FEN: DKA with severe hyperglycemia, Blood sugar 1717 DM Hypernatremia -At home on Lantus 50 units twice a day, metformin 1000 mg twice a day and glipizide 5 mg before meals. Currently on Levemir 40 units twice a day with high sliding scale insulin Accu-Cheks every 4 hours. 60 units sliding scale past 24 hours Free water deficit is 3.6 L. He received bicarbonate yesterday likely acute slightly elevated sodium today. Will return to quarter normal saline while nothing by mouth medications at 200 cc an hour. PROPH: - Bilateral lower extremity SCDs. IV Protonix twice a day. IV heparin held in light of possible lower GI bleed LINES: - Right subclavian central line placed by Dr. Benavides 12/12 day #4 Level III Ziyad Shepherd MD Dec 15, 2016 10:37
[2016-12-15 11:29] LABS: HEMATOCRIT 34.9 % (39.0-51.0)
[2016-12-15 11:35] LABS: REVIEW FLAG FINAL
[2016-12-15 11:42] LABS: APTT (PATIENT) 27.9 SEC (24.3-30.1); INTERNATIONAL NORMALIZED RATIO 1.1 RATIO; PROTHROMBIN TIME - PATIENT 12.7 SEC (9.8-11.6)
[2016-12-15] MEDS ORDERED: DIATRIZOATE MEGLUM/DIATRIZOATE SOD 9 ML CUP PO ONE (12:30)
[2016-12-15] MEDS: PANTOPRAZOLE SODIUM 40 MG VIAL IV PUSH SCH ×2 (12:50→23:49)
[2016-12-15] MEDS: PIPERACIL-TAZO 4.5 GM PREMIX 100 ML IV SCH ×2 (12:51→18:47)
[2016-12-15 12:52] LABS: HEMOGLOBIN A1b 1.3 %; HEMOGLOBIN Ao 76.1 %; HEMOGLOBIN F 1.9 %; HEMOGLOBIN LA1C 2.5 %; HEMOGLOBIN P3 5.9 %
--- NOTE | 2016-12-15 13:23 | PD.CONS ---
HPI History of Present Illness This is a 66 year old male with hx DM, HTN, who presented to the ER for weakness. He was found to be in DKA with BG 1717, rhabdomyolysis, NSTEMI. He was intubated yesterday d/t altered mental status, likely ETOH withdrawals per CCM. Last night the RN noted black stools and he was hemoccult positive. He is on ASA and plavix for the NSTEMI. His HH was 14.5 12/12 and is now 12.1. There is old blood in NGT cannister. (Maria Luisa Jauregui) PFSH Past Medical History DM HTN NSTEMI Past Surgical History unk (Maria Luisa Jauregui) Coded Allergies: Iodine (Verified Allergy, Mild, 12/12/16) Family History noncontributory Social History noncontributory (Maria Luisa Jauregui) Review of Systems ROS noncontributory (Maria Luisa Jauregui) GI Exam Vitals I&O Vital Signs Date Time Temp Pulse Resp B/P Pulse Ox O2 Delivery O2 Flow Rate FiO2 12/15/16 11:15 100 40 12/15/16 07:45 99 40 12/15/16 06:00 98 12/15/16 06:00 98 17 133/74 100 12/15/16 05:00 102 14 139/89 100 12/15/16 04:31 100 40 12/15/16 04:00 93 12/15/16 04:00 40 12/15/16 04:00 98.2 93 17 145/75 100 12/15/16 03:00 90 18 149/75 100 12/15/16 02:00 87 16 103/62 100 12/15/16 02:00 87 12/15/16 01:19 100 40 12/15/16 01:00 86 16 114/66 100 12/15/16 00:00 82 12/15/16 00:00 98.3 82 16 103/62 100 12/15/16 00:00 40 12/14/16 23:00 83 16 100/61 100 12/14/16 22:00 89 12/14/16 22:00 89 18 110/65 100 12/14/16 21:00 86 16 126/78 100 12/14/16 20:00 40 12/14/16 20:00 83 12/14/16 20:00 97.6 83 16 133/79 100 12/14/16 19:53 100 40 12/14/16 18:00 83 12/14/16 18:00 40 12/14/16 16:00 98.9 84 20 102/59 97 12/14/16 16:00 84 12/14/16 16:00 55 12/14/16 15:47 98 40 12/14/16 14:00 81 I/O 12/14/16 12/14/16 12/14/16 12/15/16 12/15/16 12/15/16 07:00 15:00 23:00 07:00 15:00 23:00 Intake Total 257 ml 1564 ml 1162 ml Output Total 400 ml 725 ml 400 ml Balance -143 ml 839 ml 762 ml Intake Oral 120 ml IV Total 137 ml 1141 ml 795 ml Tube Feeding 23 ml 167 ml Tube Irrigant 300 ml Other 100 ml 200 ml Output Urine Total 400 ml 725 ml 400 ml # Bowel Movements 0 0 1 Imaging Last Impressions Head CT 12/14/16 0000 Signed Impressions: Service Date/Time: Wednesday, December 14, 2016 09:12 - CONCLUSION: No acute disease. Omar Holland MD Chest X-Ray 12/14/16 0000 Signed Impressions: Service Date/Time: Wednesday, December 14, 2016 12:44 - CONCLUSION: 1. Intubation with endotracheal tube in satisfactory position. NG enters stomach. Mild basal airspace disease. Edgardo Alarcon MD Renal Ultrasound 12/13/16 0000 Signed Impressions: Service Date/Time: Tuesday, December 13, 2016 18:07 - CONCLUSION: 1. The kidneys are grossly unremarkable in appearance with no definite evidence of hydronephrosis. There was suboptimal visualization of the left kidney. 2. Manrique catheter in the bladder. 3. Small amount of free fluid. Celio Melton MD Laboratory Test 12/14/16 12/14/16 12/15/16 12/15/16 13:35 15:53 04:09 10:50 Blood Gas Puncture Site RT RADIAL Blood Gas Patient Temperature 98.6 Blood Gas HCO3 17 mmol/L Blood Gas Base Excess -7.5 mmol/L Blood Gas Oxygen Saturation 97 % Arterial Blood pH 7.33 Arterial Blood Partial 34 mmHg Pressure CO2 Arterial Blood Partial 191 mmHg Pressure O2 Arterial Blood Oxygen Content 16.5 Vol % Arterial Blood 1.4 % Carboxyhemoglobin Arterial Blood Methemoglobin 0.9 % Blood Gas Hemoglobin 11.8 G/DL Oxygen Delivery Device VENTILATOR Blood Gas Ventilator Setting SEE COMMENTS Blood Gas Inspired Oxygen 100 % Potassium Level 4.1 MEQ/L 3.4 MEQ/L Phosphorus Level 3.8 MG/DL 2.7 MG/DL White Blood Count 6.1 TH/MM3 Red Blood Count 3.80 MIL/MM3 Hemoglobin 12.1 GM/DL 12.1 GM/DL Hematocrit 35.7 % 34.9 % Mean Corpuscular Volume 93.9 FL Mean Corpuscular Hemoglobin 31.7 PG Mean Corpuscular Hemoglobin 33.7 % Concent Red Cell Distribution Width 14.2 % Platelet Count 57 TH/MM3 Mean Platelet Volume 8.9 FL Neutrophils (%) (Auto) 64.9 % Lymphocytes (%) (Auto) 26.4 % Monocytes (%) (Auto) 4.8 % Eosinophils (%) (Auto) 3.2 % Basophils (%) (Auto) 0.7 % Neutrophils # (Auto) 4.0 TH/MM3 Lymphocytes # (Auto) 1.6 TH/MM3 Monocytes # (Auto) 0.3 TH/MM3 Eosinophils # (Auto) 0.2 TH/MM3 Basophils # (Auto) 0.0 TH/MM3 CBC Comment AUTO DIFF Differential Comment AUTO DIFF CONFIRMED Platelet Estimate LOW Platelet Morphology Comment NORMAL Red Cell Morphology Comment NORMAL Activated Partial 33.3 SEC 27.9 SEC Thromboplast Time Sodium Level 156 MEQ/L Chloride Level 124 MEQ/L Carbon Dioxide Level 25.9 MEQ/L Anion Gap 6 MEQ/L Blood Urea Nitrogen 29 MG/DL Creatinine 1.04 MG/DL Estimat Glomerular Filtration 72 ML/MIN Rate Random Glucose 191 MG/DL Calcium Level 7.6 MG/DL Magnesium Level 2.1 MG/DL Prothrombin Time 12.7 SEC Prothromb Time International 1.1 RATIO Ratio Fibrinogen 270 mg/dL Date/Time Procedure Status Source Growth 12/15/16 05:15 Stool Occult Blood (LUIS) - Final Complete Stool Stool HEMOCCULT POSITIVE 12/14/16 16:00 Gram Stain - Final Resulted Sputum Endotracheal 12/14/16 16:00 Sputum Culture - Preliminary Resulted Sputum Endotracheal IMMATURE GROWTH - REINCUBATE 12/12/16 12:05 Aerobic Blood Culture - Preliminary Resulted Blood Peripheral NO GROWTH IN 3 DAYS 12/12/16 12:05 Anaerobic Blood Culture - Preliminary Resulted Blood Peripheral NO GROWTH IN 3 DAYS Physical Examination HEENT: normocephalic; atraumatic; intubated; brown sediment in NGT CHEST: coarse CARDIAC: RRR ABDOMEN: Soft, obese; bowel sounds are present in all four quadrants. EXTREMITIES: No clubbing, cyanosis, + edema SKIN: Normal; no rash; no jaundice. [employer] DES[employer]: sedated on vent (Maria Luisa Jauregui) Assessment and Plan Plan ASSESSMENT - melena - hemoccult pos, melena noted by RN - anemia - 12.1 stable today, dropped from 14.5 3d ago - DM, DKA - noncompliant, per primary PLAN - EGD tomorrow - NPO - obtain consents - KUB - continue PPi - monitor HH - transfuse if needed - supportive care - further recommendations to follow This pt seen by myself and Dr Del Rio and this note is writtenon her behalf ( Maria Luisa Jauregui) Physician Comments seen, examined agree with above reviewed old ct-cirrhotic liver ct abdomen/pelvis ordered cancel kub possible egd in am based on results (Neeta Del Rio MD) Maria Luisa Jauregui Dec 15, 2016 13:22 Neeta Del Rio MD Dec 15, 2016 14:09
[2016-12-15 15:22] LABS: C. DIFF EPI 027 PRESUMPTIVE NEGATIVE (NEGATIVE); C. DIFF TOXIN PCR NEGATIVE (NEGATIVE)
--- NOTE | 2016-12-15 18:10 | RADRPT ---
EXAM DATE/TIME: 12/15/2016 17:17 [facility] COMPARISON: CT ABDOMEN & PELVIS W/O CONTRAST, June 05, 2016, 21:46. INDICATIONS : Black stools. ORAL CONTRAST: Prescribed oral contrast ingested. RADIATION DOSE: 30.78 CTDIvol (mGy) MEDICAL HISTORY : Hypertension. diabetes SURGICAL HISTORY : kidney stone removal ENCOUNTER: Initial ACUITY: 1 day PAIN SCALE: Non-responsive LOCATION: Bilateral abdomen TECHNIQUE: Volumetric scanning of the abdomen and pelvis was performed. Using automated exposure control and ad justment of the mA and/or kV according to patient size, radiation dose was kept as low as reasonably achievable to obtain optimal diagnostic quality images. DICOM format image data is available electro nically for review and comparison. FINDINGS: LOWER LUNGS: There is increased density at the posterior lung bases bilaterally being worse on the left likely rel ated to dependent atelectasis or consolidation. LIVER: There is hypertrophy of the left lobe and a nodular hepatic surface likely related to cirrhosis. Calc ified gallstones are seen. SPLEEN: The spleen is enlarged measuring 16.7 cm in length. No focal splenic lesion is seen. PANCREAS: Within normal limits. KIDNEYS: There is a 5 mm nonobstructing left renal stone. No hydronephrosis is seen on either side. ADRENAL GLANDS: Within normal limits. VASCULAR: There is no aortic aneurysm. BOWEL/MESENTERY: The stomach, small bowel, and colon demonstrate no acute abnormality. There is some thickening of the rectum although the rectum is not distended. This is nonspecific. No oral contrast was given. There is a mild amount of ascites seen around the liver and in the paracolic gutter regions being more prom inent on the left. There is an NG tube present. ABDOMINAL WALL: Within normal limits. There are focal areas of increased density within the subcutaneous fat likely r elated to subcutaneous injections. RETROPERITONEUM: There is no lymphadenopathy. BLADDER: There is a Manrique catheter in place. REPRODUCTIVE: Within normal limits. INGUINAL: There is no lymphadenopathy or hernia. MUSCULOSKELETAL: Within normal limits for patient age. CONCLUSION: 1. Cirrhotic appearing liver with mild ascites. There is also splenomegaly which likely secondary to portal hypertension. 2. Calcified gallstones. The gallbladder is distended. This appearance is unchanged from the prior ex am. 3. 5 mm nonobstructing left renal stone. 4. The cause of the patient's bloody stool is not identified on this noncontrast CT examination. Muco radha lesions may not be seen on CT. 5. Bibasilar areas of consolidation or atelectasis. Kennedy Chatman MD on December 15, 2016 at 18:00 Board Certified Radiologist. This report was verified electronically.
[2016-12-15] MEDS: ARTIFICIAL TEARS OPTH SOLN 15 ML BTL EACH EYE SCH ×2 (18:47→22:38)
[2016-12-15 20:03] LABS: HEMATOCRIT 33.6 % (39.0-51.0)
[2016-12-15 20:05] LABS: REVIEW FLAG FINAL
[2016-12-15] MEDS ORDERED: INSULIN DETEMIR 100 UNITS/ML VIAL SQ ONE (20:30)
[2016-12-16] VITALS (20 sets, daily range): BP systolic 117–147; BP diastolic 58–81; PULSE 94–112; RESP 15–17; TEMP 97.5–98.4; O2SAT 96–100
[2016-12-16] MEDS: PROPOFOL 1000 MG/100 ML INJ 100 ML IV SCH ×4 (00:36→22:22)
[2016-12-16 00:40] LABS: HEMATOCRIT 32.7 % (39.0-51.0); REVIEW FLAG FINAL
[2016-12-16] MEDS ORDERED: DEXTROSE 5% IN WATE 1000ML INJ 1,000 ML IV SCH (02:30)
[2016-12-16] MEDS: PIPERACIL-TAZO 4.5 GM PREMIX 100 ML IV SCH ×3 (02:36→18:32)
[2016-12-16] MEDS: RESP: ALBUTEROL 2.5 MG/IPRATROPIUM 0.5 MG NEB (SCH) NEB ×4 (03:57→19:58)
[2016-12-16] MEDS: CHLORHEXIDINE GLUCONATE 2 % 1 PACK (2 CLOTHS) TOP SCH (04:00)
[2016-12-16] MEDS: INSULIN NovoLIN REGULAR SUPPLEMENTAL SCALE SQ SCH ×6 (04:00→20:33)
[2016-12-16 04:24] LABS: AUTOMATED NEUTROPHIL # 3.7 TH/MM3 (1.8-7.7); BASOPHIL % 0.6 % (0.0-2.0); EOSINOPHIL # 0.3 TH/MM3 (0-0.4); EOSINOPHIL % 4.8 % (0.0-4.0); MEAN CELL VOLUME 95.1 FL (80.0-100.0); MEAN CORPUSCULAR HEMOGLOBIN 31.5 PG (27.0-34.0); MEAN CORPUSCULAR HGB CONC 33.1 % (32.0-36.0); MONO % 7.4 % (0.0-8.0); NEUT % 68.2 % (16.0-70.0); PLATELET COUNT 49 TH/MM3 (150-450); RED BLOOD COUNT 3.58 MIL/MM3 (4.50-5.90); RED CELL DISTRIBUTION WIDTH 13.9 % (11.6-17.2); WHITE BLOOD COUNT 5.5 TH/MM3 (4.0-11.0)
[2016-12-16 04:27] LABS: APTT (PATIENT) 29.4 SEC (24.3-30.1); INTERNATIONAL NORMALIZED RATIO 1.1 RATIO; PROTHROMBIN TIME - PATIENT 12.1 SEC (9.8-11.6)
[2016-12-16 04:29] LABS: HEMO FLAGS AUTO DIFF
[2016-12-16 05:31] LABS: ALKALINE PHOSPHATASE 110 U/L (45-117); ALT (GPT) 35 U/L (12-78); ANION GAP 8 MEQ/L (5-15); AST (GOT) 40 U/L (15-37); BICARBONATE 24.6 MEQ/L (21.0-32.0); BLOOD UREA NITROGEN 23 MG/DL (7-18); CHLORIDE 114 MEQ/L (98-107); GLOMERULAR FILTRATION RATE 85 ML/MIN (>89); MAGNESIUM 2.1 MG/DL (1.5-2.5); POTASSIUM 3.6 MEQ/L (3.5-5.1); SODIUM (NA) 147 MEQ/L (136-145); TOTAL BILIRUBIN ADULT 0.7 MG/DL (0.2-1.0)
[2016-12-16] MEDS: METOPROLOL TARTRATE 25 MG TAB PO SCH ×3 (05:31→22:00)
[2016-12-16] MEDS: ARTIFICIAL TEARS OPTH SOLN 15 ML BTL EACH EYE SCH ×3 (05:31→22:22)
--- NOTE | 2016-12-16 05:39 | RADRPT ---
EXAM DATE/TIME: 12/16/2016 05:01 [facility] COMPARISON: CHEST SINGLE AP, December 14, 2016, 12:44. INDICATIONS : Shortness of breath, possible pulmonary disease. MEDICAL HISTORY : Diabetes mellitus type II. Cirrhosis. Hyperthyroidism. Renal stones SURGICAL HISTORY : Renal stone removal ENCOUNTER: Subsequent ACUITY: 4 - 6 days PAIN SCORE: Non-responsive. LOCATION: Bilateral chest FINDINGS: A single view of the chest demonstrates cardiomegaly with increase in pulmonary vascularity. Minimal left basilar density. Endotracheal tube, meniscus 2 right subclavian central line are stable in posit ion. Osseous structures are intact. CONCLUSION: 1. Cardiomegaly with increased pulmonary vascularity. 2. Support lines and tubes are unchanged. Deshawn Daugherty MD on December 16, 2016 at 5:37 Board Certified Radiologist. This report was verified electronically.
[2016-12-16 05:42] LABS: SCAN/DIFF AUTO DIFF CONFIRMED
[2016-12-16 05:43] LABS: PLATELET ESTIMATE SMEAR LOW (NORMAL); PLATELET MORPHOLOGY NORMAL (NORMAL)
[2016-12-16] MEDS: MULTIVITAMIN TAB PO SCH (08:17)
[2016-12-16] MEDS: ASPIRIN EC 81 MG TABEC PO SCH (08:17)
[2016-12-16] MEDS: FOLIC ACID 1 MG TAB PO SCH (08:17)
[2016-12-16] MEDS: THIAMINE INJ 100 MG in SODIUM CHLORIDE 0.9% INJ 100 ML IV SCH (08:17)
[2016-12-16] MEDS: CLOPIDOGREL 75 MG TAB PO SCH (08:17)
[2016-12-16] MEDS: fentaNYL DRIP 250 ML IV SCH (08:27)
[2016-12-16] MEDS: CHLORHEXIDINE 0.12% (ORAL KIT) 15 ML CUP MT SCH ×2 (08:49→20:32)
--- NOTE | 2016-12-16 10:30 | HHI.CCPN ---
Subjective Remarks/Hospital Course Patient is a 66 yo white male with past medical history of type 2 diabetes, hypertension, dyslipidemia who was brought into the emergency department for evaluation of severe weakness and lethargy. Patient apparently has been noncompliant with his insulin as per EMS and multiple of empty bottles of Mountain Dew was found at his home. He was found to be in feces all around his body. Apparently patient fell and was not able to get off the floor for several hours. Lab work revealed leukocytosis at 16.2., VBG showed metabolic acidosis with pH of 7.24. HCO3 of 15, Potassium is low at 2.6. Blood glucose was extremely elevated at 1717, serum acetone was positive, I advised ED to replace atleast 160 meq potassium as there is risk of further hypokalemia with insulin infusion. Lactic acid is elevated at 6.9. Creatinine 2.69. CPK 2392. Pt empirically cover with vancomycin and zosyn. I evaluated the patient in the emergency department and then again in the ICU. He is critically ill, tremulous. Extremely dehydrated, tachycardic. Additional 2 L fluid bolus was ordered. DKA protocol initiated, after repeat CMP. Panculture sent. I have also placed a right subclavian central line to facilitate, faster potassium replacement and also for fluid resuscitation 12/13: Afebrile. Currently resting in bed. Asking what time it is at the present time. Slightly improved appetite. Denies chest pain or shortness of breath. 12/14: Afebrile. Agitated overnight. Found out overnight drinks significant "Citizen Of [place] saki" alcohol daily. CIWA protocol initiated. Thiamine multivitamin and folate started. Insulin drip currently on schedule Levemir twice a day. Denies chest pain. Confused. Subjective 12/15: Afebrile. Intubated yesterday due to altered mental status/likely EtOH withdrawals. This a.m., noted post decrease to 84-57 on heparin drip. RN states melanotic stool. Hemoglobin appears stable however will check serial hemoglobin. Hemoccult still pending. Will make nothing by mouth except for meds. Continue aspirin and Plavix in light of non-STEMI. 12/16 Patient is sedated with Diprivan, Fentanyl and intubated. For EGD today. Afebrile. Objective Vital Signs Date Time Temp Pulse Resp B/P Pulse Ox O2 Delivery O2 Flow Rate FiO2 12/16/16 08:00 97.5 99 16 122/69 100 12/16/16 07:57 35 12/14/16 08:09 Nasal Cannula 2.00 Intake and Output 12/15/16 12/15/16 12/16/16 08:00 16:00 00:00 Intake Total 1162 ml 1353 ml 2030 ml Output Total 400 ml 600 ml 550 ml Balance 762 ml 753 ml 1480 ml Result Diagram: 12/16/16 0407 12/16/16 0407 Other Results Laboratory Tests Test 12/15/16 12/15/16 12/16/16 12/16/16 10:50 19:00 00:20 04:07 Hemoglobin 12.1 GM/DL 11.6 GM/DL 11.2 GM/DL 11.3 GM/DL Hematocrit 34.9 % 33.6 % 32.7 % 34.0 % Prothrombin Time 12.7 SEC 12.1 SEC Prothromb Time International 1.1 RATIO 1.1 RATIO Ratio Activated Partial 27.9 SEC 29.4 SEC Thromboplast Time Fibrinogen 270 mg/dL White Blood Count 5.5 TH/MM3 Red Blood Count 3.58 MIL/MM3 Mean Corpuscular Volume 95.1 FL Mean Corpuscular Hemoglobin 31.5 PG Mean Corpuscular Hemoglobin 33.1 % Concent Red Cell Distribution Width 13.9 % Platelet Count 49 TH/MM3 Mean Platelet Volume 8.7 FL Neutrophils (%) (Auto) 68.2 % Lymphocytes (%) (Auto) 19.0 % Monocytes (%) (Auto) 7.4 % Eosinophils (%) (Auto) 4.8 % Basophils (%) (Auto) 0.6 % Neutrophils # (Auto) 3.7 TH/MM3 Lymphocytes # (Auto) 1.0 TH/MM3 Monocytes # (Auto) 0.4 TH/MM3 Eosinophils # (Auto) 0.3 TH/MM3 Basophils # (Auto) 0.0 TH/MM3 CBC Comment AUTO DIFF Differential Comment AUTO DIFF CONFIRMED Platelet Estimate LOW Platelet Morphology Comment NORMAL Sodium Level 147 MEQ/L Potassium Level 3.6 MEQ/L Chloride Level 114 MEQ/L Carbon Dioxide Level 24.6 MEQ/L Anion Gap 8 MEQ/L Blood Urea Nitrogen 23 MG/DL Creatinine 0.90 MG/DL Estimat Glomerular Filtration 85 ML/MIN Rate Random Glucose 147 MG/DL Lactic Acid Level 1.5 mmol/L Calcium Level 7.7 MG/DL Phosphorus Level 3.4 MG/DL Magnesium Level 2.1 MG/DL Total Bilirubin 0.7 MG/DL Aspartate Amino Transf 40 U/L (AST/SGOT) Alanine Aminotransferase 35 U/L (ALT/SGPT) Alkaline Phosphatase 110 U/L Troponin I 0.14 NG/ML Total Protein 5.6 GM/DL Albumin 2.3 GM/DL Imaging Last Impressions Chest X-Ray 12/16/16 0600 Signed Impressions: Service Date/Time: Friday, December 16, 2016 05:01 - CONCLUSION: 1. Cardiomegaly with increased pulmonary vascularity. 2. Support lines and tubes are unchanged. Deshwan Daugherty MD Abdomen/Pelvis CT 12/15/16 0000 Signed Impressions: Service Date/Time: Thursday, December 15, 2016 17:17 - CONCLUSION: 1. Cirrhotic appearing liver with mild ascites. There is also splenomegaly which likely secondary to portal hypertension. 2. Calcified gallstones. The gallbladder is distended. This appearance is unchanged from the prior exam. 3. 5 mm nonobstructing left renal stone. 4. The cause of the patient's bloody stool is not identified on this noncontrast CT examination. Mucosal lesions may not be seen on CT. 5. Bibasilar areas of consolidation or atelectasis. Kennedy Chatman MD Head CT 12/14/16 0000 Signed Impressions: Service Date/Time: Wednesday, December 14, 2016 09:12 - CONCLUSION: No acute disease. Omar Holland MD Renal Ultrasound 12/13/16 0000 Signed Impressions: Service Date/Time: Tuesday, December 13, 2016 18:07 - CONCLUSION: 1. The kidneys are grossly unremarkable in appearance with no definite evidence of hydronephrosis. There was suboptimal visualization of the left kidney. 2. Manrique catheter in the bladder. 3. Small amount of free fluid. Celio Melton MD Objective Remarks GEN: 66-year-old obese male, critically ill and orotracheally intubated SKIN: Warm and dry. No rash HEAD: Atraumatic. Normocephalic. EYES: Pupils equal and round 4 mm reactive to light and accommodation bilaterally.. ENT: No nasal bleeding or discharge. NECK: Trachea midline. No JVD. CARDIOVASCULAR: Distant. RRR. S1, S2 no S4 without murmur or clicks, gallops or rubs RESPIRATORY: Diminished breath sounds due to body habitus. No wheezes rales or rhonchi. GASTROINTESTINAL: Abdomen soft, non-tender, obese. Hypoactive bowel sounds appreciated MUSCULOSKELETAL: Extremities without significant peripheral edema. Chronic venous stasis bilateral lower extremity's. NEUROLOGICAL: Arousable on the ventilator and will follow commands. Moves all 4 extremities spontaneously. Normal sensation. Date of Insertion: Dec 12, 2016 Line: Central Venous Catheter Side: Right Location: Subclavian A/P Assessment and Plan NEURO/PSYCH: Acute metabolic encephalopathy EtOH - On Diprivan and Fentanyl infusion for sedation. Daily sedation vacation CIIL protocol initiated Thiamine, folate and multivitamin CT head 03/16 revealed no acute intracranial findings Acetaminophen if necessary for fever/pain RESP: Acute respiratory failure secondary to AMS [facility] 16/1.06/20/39 Ventilator bundle - DuoNeb every 6 hours scheduled with albuterol every 2 hours when necessary Spontaneous breathing trials daily CV: Troponin elevation/NSTEMI Lactic acidosis History of hypertension History of dyslipidemia Grade 1 diastolic dysfunction -Monitor HR and BP keep MAP>65mmHg. Lactic acid 1.5 - Cardiology consulted Dr. Burnett. She was on IV heparin drip per protocol, however discontinued secondary to heme positive stools Continue on aspirin 81 mg daily and metoprolol 12.5 mg every 8. Will hold Plavix in lieu of worsening thrombocytopenia discussed with cards -Dr. Burnett -Troponins trending downward: 0.14 today from 2.32. -2d echo 12/13 revealed EF 55-60%. LVH. Grade 1 diastolic dysfunction. GI: Liver cirrhosis? Elevated AST likely cardiac related Keep NPO, for EGD today -Protonix IV twice a day for GI prophylaxis : Acute kidney failure - resolved - Monitor renal function, I/O's, electrolytes replacement as needed. Diurese with Bumex 1mg x1 -Negative urine eosinophils. Prerenal indices. Negative hydronephrosis on renal ultrasound. -d/c IVF, place on Free water 200ml Q8, monitor sodium level. ID: Severe sepsis source unclear - Received IV vancomycin and Zosyn in the ED. - Continue Zosyn monitor for signs of infections ( Fever, WBC) - Follow-up on blood urine cultures and sputum cultures all no growth HEME: Macrocytosis Leukocytosis Thrombocytopenia - Monitor CBC, CMP, coags. Fibrinogen level 270 on 12/15 - HIT ordered ENDO/FEN: DM Hypernatremia On SSI ( high scale) with accuchecks PROPH: - Bilateral lower extremity SCDs. IV Protonix twice a day. IV heparin held in light of possible lower GI bleed and Hemoccult positive LINES: - Right subclavian central line placed by Dr. Benavides 12/12 Level III Chidi Thompson MD Dec 16, 2016 10:30
[2016-12-16] MEDS: PANTOPRAZOLE SODIUM 40 MG VIAL IV PUSH SCH ×2 (11:02→22:32)
[2016-12-16] MEDS ORDERED: BUMETANIDE INJ 1 MG/4 ML VIAL IV PUSH ONE (11:15)
[2016-12-16] MEDS: FREE WATER G-TUBE SCH ×2 (14:00→22:00)
--- NOTE | 2016-12-16 16:09 | PD.CARD.PN ---
Subjective Subjective Remarks Events over the weekend noted Currently sedated on the vent Objective Medications Current Medications Medications (Trade) Dose Ordered Sig/Epi Route Start Time Stop Time Status Last Admin Miscellaneous Information 1 Q361D XX 12/12/16 13:30 (Chlorhexidine 2% Cloth) 3 pack Taper DAILY@04 TOP 12/13/16 04:00 12/09/17 03:59 12/16/16 04:00 (Chlorhexidine 2% Cloth) 3 pack UNSCH PRN TOP 12/12/16 13:30 (Ecotrin Ec) 81 mg DAILY PO 12/12/16 16:00 12/16/16 08:17 Metoprolol Tartrate 12.5 mg 12.5 mg Q8HR PO 12/12/16 16:00 12/16/16 13:52 (Heparin-D5W Inj) 250 ml @ 0 mls/hr TITRATE IV 12/12/16 16:30 Hold 12/14/16 20:50 (Pill Splitter) 1 ea UNSCH PRN OTHER 12/12/16 16:45 (Plavix) 75 mg DAILY PO 12/13/16 09:00 12/16/16 08:17 (D50w (Vial) Inj) 50 ml UNSCH PRN IV 12/13/16 17:30 (Glucagon Inj) 1 mg UNSCH PRN OTHER 12/13/16 17:30 (NovoLIN R SUPPLEMENTAL SCALE) 1 Q4HR SQ 12/13/16 20:00 12/16/16 12:00 (Romazicon Inj) 0.2 mg Q1M PRN IV PUSH 12/14/16 07:30 12/14/16 11:41 (Ativan) 1 mg Q4H PRN PO 12/14/16 07:30 (Ativan Inj) 1 mg Q4H PRN IV PUSH 12/14/16 07:30 (Ativan) 2 mg Q2H PRN PO 12/14/16 07:30 (Ativan Inj) 2 mg Q2H PRN IV PUSH 12/14/16 07:30 (Ativan Inj) 2 mg Q1H PRN IV PUSH 12/14/16 07:30 (Ativan Inj) 2 mg Q15M PRN IV PUSH 12/14/16 07:30 (Folate) 1 mg DAILY PO 12/14/16 09:00 12/16/16 08:17 Multivitamins 1 tab 1 tab DAILY PO 12/14/16 09:00 12/16/16 08:17 Potassium Chloride 100 ml @ 50 mls/hr Q2H PRN IV 12/14/16 07:45 (KCl 20 Meq Premix Inj) 100 ml @ 50 mls/hr Q2H PRN IV 12/14/16 07:45 Potassium Bicarb/ Potassium Chloride 50 meq 50 meq UNSCH PRN PO 12/14/16 07:45 Potassium Chloride 100 ml @ 25 mls/hr UNSCH PRN IV 12/14/16 07:45 12/15/16 06:08 Potassium Chloride 100 ml @ 50 mls/hr Q2H PRN IV 12/14/16 07:45 (Magnesium Sulfate Inj/NS Inj) 100 ml @ 50 mls/hr UNSCH PRN IV 12/14/16 07:45 Magnesium Oxide 800 mg 800 mg UNSCH PRN PO 12/14/16 07:45 (Magnesium Sulfate Inj/NS Inj) 100 ml @ 50 mls/hr UNSCH PRN IV 12/14/16 07:45 Potassium Phosphate 2000 mg 2,000 mg Q4H PRN PO 12/14/16 07:45 (Sodium Phosphate Inj/NS 250 ml Inj) 250 ml @ 42 mls/hr UNSCH PRN IV 12/14/16 07:45 Potassium Phosphate 2000 mg 2,000 mg UNSCH PRN PO/TUBE 12/14/16 07:45 (Potassium Phosphate Inj/NS 250 ml Inj) 260 ml @ 42 mls/hr UNSCH PRN IV 12/14/16 07:45 (Levemir Inj) 40 units Q12HR SQ 12/14/16 09:00 Hold 12/15/16 09:00 Chlorhexidine Gluconate 15 ml 15 ml BID@08,20 MT 12/14/16 20:00 12/16/16 08:49 Propofol 100 ml @ 0 mls/hr TITRATE IV 12/14/16 12:30 12/16/16 15:26 Fentanyl Citrate 250 ml @ 0 mls/hr TITRATE IV 12/14/16 12:30 12/16/16 08:27 (Levophed-Dextrose Drip) 250 ml @ 0 mls/hr TITRATE IV 12/14/16 15:00 Terbutaline Sulfate 1 mg 1 mg UNSCH PRN SQ 12/14/16 15:00 (Zosyn 4.5 Gm Premix) 100 ml @ 200 mls/hr Q8H IV 12/15/16 11:00 12/16/16 11:02 (Protonix Inj) 40 mg Q12H IV PUSH 12/15/16 11:00 12/16/16 11:02 (Tears Naturale Opth Soln) 1 drop Q8HR EACH EYE 12/15/16 14:00 12/16/16 13:59 (Free Water) 200 ml Q8HR G-TUBE 12/16/16 14:00 12/16/16 14:00 (Vitamin B1) 100 mg DAILY PO 12/17/16 09:00 Vital Signs / I&O Vital Signs Date Time Temp Pulse Resp B/P Pulse Ox O2 Delivery O2 Flow Rate FiO2 12/16/16 14:29 99 35 12/16/16 14:00 112 12/16/16 13:00 35 12/16/16 12:00 98.4 104 16 128/73 96 12/16/16 12:00 104 12/16/16 11:10 98 35 12/16/16 10:00 109 12/16/16 08:00 40 12/16/16 08:00 97.5 99 16 122/69 100 12/16/16 08:00 99 12/16/16 07:57 100 35 12/16/16 06:00 103 12/16/16 04:08 100 40 12/16/16 04:00 98.3 101 16 135/75 100 12/16/16 04:00 40 12/16/16 04:00 101 12/16/16 02:00 94 12/16/16 00:56 100 40 12/16/16 00:00 98.2 94 16 123/70 100 12/16/16 00:00 40 12/16/16 00:00 94 12/15/16 23:11 100 40 12/15/16 22:00 100 12/15/16 20:00 40 12/15/16 20:00 98.3 101 16 154/82 100 12/15/16 20:00 101 12/15/16 19:58 100 40 12/15/16 18:00 99 12/15/16 17:37 100 100 I/O 12/15/16 12/15/16 12/15/16 12/16/1612/16/17 7/3/17 07:00 15:00 23:00 07:00 15:00 23:00 Intake Total 1162 ml 1353 ml 2030 ml 1410 ml 1310 ml Output Total 400 ml 600 ml 550 ml 550 ml 1950 ml Balance 762 ml 753 ml 1480 ml 860 ml -640 ml IV Total 795 ml 553 ml 2030 ml 1410 ml 1110 ml Tube Feeding 167 ml Other 200 ml 800 ml 200 ml Output Urine Total 400 ml 300 ml 500 ml 425 ml 1850 ml Gastric Drainage Total 300 ml 50 ml 125 ml 100 ml # Bowel Movements 1 Physical Exam GENERAL: Sedated on the vent SKIN: Warm and dry. HEAD: Atraumatic. Normocephalic. EYES: Pupils equal and round. No scleral icterus. No injection or drainage. ENT: No nasal bleeding or discharge. Mucous membranes pink and moist. NECK: Trachea midline. No JVD. CARDIOVASCULAR: Tachy, regular RESPIRATORY: No accessory muscle use. Clear to auscultation. Breath sounds equal bilaterally. GASTROINTESTINAL: Abdomen soft, non-tender, nondistended. Hepatic and splenic margins not palpable. MUSCULOSKELETAL: Extremities without clubbing, cyanosis, or edema. No obvious deformities. NEUROLOGICAL: Sedated on the vent Laboratory Laboratory Tests Test 12/15/16 12/16/16 12/16/16 19:00 00:20 04:07 Hemoglobin 11.6 GM/DL 11.2 GM/DL 11.3 GM/DL Hematocrit 33.6 % 32.7 % 34.0 % White Blood Count 5.5 TH/MM3 Red Blood Count 3.58 MIL/MM3 Mean Corpuscular Volume 95.1 FL Mean Corpuscular Hemoglobin 31.5 PG Mean Corpuscular Hemoglobin 33.1 % Concent Red Cell Distribution Width 13.9 % Platelet Count 49 TH/MM3 Mean Platelet Volume 8.7 FL Neutrophils (%) (Auto) 68.2 % Lymphocytes (%) (Auto) 19.0 % Monocytes (%) (Auto) 7.4 % Eosinophils (%) (Auto) 4.8 % Basophils (%) (Auto) 0.6 % Neutrophils # (Auto) 3.7 TH/MM3 Lymphocytes # (Auto) 1.0 TH/MM3 Monocytes # (Auto) 0.4 TH/MM3 Eosinophils # (Auto) 0.3 TH/MM3 Basophils # (Auto) 0.0 TH/MM3 CBC Comment AUTO DIFF Differential Comment AUTO DIFF CONFIRMED Platelet Estimate LOW Platelet Morphology Comment NORMAL Prothrombin Time 12.1 SEC Prothromb Time International 1.1 RATIO Ratio Activated Partial 29.4 SEC Thromboplast Time Sodium Level 147 MEQ/L Potassium Level 3.6 MEQ/L Chloride Level 114 MEQ/L Carbon Dioxide Level 24.6 MEQ/L Anion Gap 8 MEQ/L Blood Urea Nitrogen 23 MG/DL Creatinine 0.90 MG/DL Estimat Glomerular Filtration 85 ML/MIN Rate Random Glucose 147 MG/DL Lactic Acid Level 1.5 mmol/L Calcium Level 7.7 MG/DL Phosphorus Level 3.4 MG/DL Magnesium Level 2.1 MG/DL Total Bilirubin 0.7 MG/DL Aspartate Amino Transf 40 U/L (AST/SGOT) Alanine Aminotransferase 35 U/L (ALT/SGPT) Alkaline Phosphatase 110 U/L Troponin I 0.14 NG/ML Total Protein 5.6 GM/DL Albumin 2.3 GM/DL Assessment and Plan Problem List: (1) DKA (diabetic ketoacidoses) (2) NSTEMI (non-ST elevated myocardial infarction) (3) Medical non-compliance (4) Type 2 diabetes mellitus (5) Acute kidney failure (6) Lactic acidosis (7) Hypokalemia (8) Diabetic hyperosmolar non-ketotic state (9) Severe sepsis (10) Cirrhosis of liver (11) Poor personal hygiene Assessment and Plan 1) NSTEMI possible Type 1 vs 2 2) 2D echo pending 3) Planned ischemic evaluation, but since has had heme-positive stools with melena, drop in Hgb, and a drop in platelets Platelets now 49,000... will plan on stopping Plavix, if further drop in PLTs then will need to stop ASA No further ischemic evaluation at this time due to current platelet levels, unable to give further anti-coagulants/anti-platelets during procedure, con't medical management Problem Qualifiers (1) DKA (diabetic ketoacidoses): Qualified Code: E13.10 - Diabetic ketoacidosis without coma associated with type 2 diabetes mellitus (2) Type 2 diabetes mellitus: (3) Cirrhosis of liver: Delano Burnett DO Dec 16, 2016 16:09
[2016-12-16 16:19] LABS: HEPARIN AB OD 0.195 O.D. (0.000-0.300); HEPARIN INDUCED PLATELET AB NEGATIVE (NEGATIVE)
[2016-12-16] MEDS ORDERED: EPINEPHrine HCL (1:10,000) 1 MG/10 ML SYRINGE OTHER ONE (16:19)
--- NOTE | 2016-12-16 19:20 | HHI.GIFU ---
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 Bleeding started when the scope was pushed through the stricture. Injection of 4cc epi provided control of bleeding OG tube removed. Stomach: erosive gastritis without bleeding Duodenum: erosive duodenitis without bleeding Objective Vitals I&O Vital Signs Date Time Temp Pulse Resp B/P Pulse Ox O2 Delivery O2 Flow Rate FiO2 12/16/16 18:00 104 12/16/16 16:00 97.6 102 17 129/59 97 12/16/16 16:00 35 12/16/16 16:00 102 12/16/16 14:29 99 35 12/16/16 14:00 112 12/16/16 13:00 35 12/16/16 12:00 98.4 104 16 128/73 96 12/16/16 12:00 104 12/16/16 11:10 98 35 12/16/16 10:00 109 12/16/16 08:00 40 12/16/16 08:00 97.5 99 16 122/69 100 12/16/16 08:00 99 12/16/16 07:57 100 35 12/16/16 06:00 103 12/16/16 04:08 100 40 12/16/16 04:00 98.3 101 16 135/75 100 12/16/16 04:00 40 12/16/16 04:00 101 12/16/16 02:00 94 12/16/16 00:56 100 40 12/16/16 00:00 98.2 94 16 123/70 100 12/16/16 00:00 40 12/16/16 00:00 94 12/15/16 23:11 100 40 12/15/16 22:00 100 12/15/16 20:00 40 12/15/16 20:00 98.3 101 16 154/82 100 12/15/16 20:00 101 12/15/16 19:58 100 40 I/O 12/15/16 12/15/16 12/15/16 12/16/16 12/16/16 12/16/16 07:00 15:00 23:00 07:00 15:00 23:00 Intake Total 1162 ml 1353 ml 2030 ml 1410 ml 1310 ml Output Total 400 ml 600 ml 550 ml 550 ml 1950 ml Balance 762 ml 753 ml 1480 ml 860 ml -640 ml IV Total 795 ml 553 ml 2030 ml 1410 ml 1110 ml Tube Feeding 167 ml Other 200 ml 800 ml 200 ml Output Urine Total 400 ml 300 ml 500 ml 425 ml 1850 ml Gastric Drainage Total 300 ml 50 ml 125 ml 100 ml # Bowel Movements 1 Laboratory Laboratory Tests Test 12/16/16 12/16/16 00:20 04:07 Hemoglobin 11.2 11.3 Hematocrit 32.7 34.0 White Blood Count 5.5 Red Blood Count 3.58 Mean Corpuscular Volume 95.1 Mean Corpuscular Hemoglobin 31.5 Mean Corpuscular Hemoglobin 33.1 Concent Red Cell Distribution Width 13.9 Platelet Count 49 Mean Platelet Volume 8.7 Neutrophils (%) (Auto) 68.2 Lymphocytes (%) (Auto) 19.0 Monocytes (%) (Auto) 7.4 Eosinophils (%) (Auto) 4.8 Basophils (%) (Auto) 0.6 Neutrophils # (Auto) 3.7 Lymphocytes # (Auto) 1.0 Monocytes # (Auto) 0.4 Eosinophils # (Auto) 0.3 Basophils # (Auto) 0.0 CBC Comment AUTO DIFF Differential Comment AUTO DIFF CONFIRMED Platelet Estimate LOW Platelet Morphology Comment NORMAL Prothrombin Time 12.1 Prothromb Time International 1.1 Ratio Activated Partial 29.4 Thromboplast Time Sodium Level 147 Potassium Level 3.6 Chloride Level 114 Carbon Dioxide Level 24.6 Anion Gap 8 Blood Urea Nitrogen 23 Creatinine 0.90 Estimat Glomerular Filtration 85 Rate Random Glucose 147 Lactic Acid Level 1.5 Calcium Level 7.7 Phosphorus Level 3.4 Magnesium Level 2.1 Total Bilirubin 0.7 Aspartate Amino Transf 40 (AST/SGOT) Alanine Aminotransferase 35 (ALT/SGPT) Alkaline Phosphatase 110 Troponin I 0.14 Total Protein 5.6 Albumin 2.3 Date/Time Procedure Status Source Growth 12/15/16 05:15 Stool Occult Blood (LUIS) - Final Complete Stool Stool HEMOCCULT POSITIVE 12/14/16 16:00 Gram Stain - Final Complete Sputum Endotracheal 12/14/16 16:00 Sputum Culture - Final Complete Sputum Endotracheal MODERATE GROWTH NORMAL RESPIRATORY SUNDEEP 12/12/16 12:05 Aerobic Blood Culture - Preliminary Resulted Blood Peripheral NO GROWTH IN 4 DAYS 12/12/16 12:05 Anaerobic Blood Culture - Preliminary Resulted Blood Peripheral NO GROWTH IN 4 DAYS Physical Exam HEENT: mucous membranes moist NECK: Neck is supple, no JVD, no lymphadenopathy. CHEST: Chest is clear to auscultation and percussion. CARDIAC: Regular rate and rhythm with no murmur gallop or rubs. ABDOMEN: Soft, nondistended, nontender; no hepatosplenomegaly; bowel sounds are present in all four quadrants. EXTREMITIES: No clubbing, cyanosis, or edema. SKIN: Normal; no rash; no jaundice. HELP DESK ADMINISTRATOR: Sedated on the ventilator Assessment and Plan Plan ASSESSMENT - melena - hemoccult pos, melena noted by RN - anemia - 12.1 stable today, dropped from 14.5 3d ago - DM, DKA - noncompliant, per primary - EGD with control of bleeding performed. Scope passage started active bleeding from the distal esophageal stricture. Controlled with epi 4cc 1:10, 000 Small esophageal varices and gastro duodenitis seen. Plan: - Leave OG tube out for 24 hours then OK to re insert. - KUB - continue PPi - monitor HH - transfuse if needed - supportive care Josh Randle MD Dec 16, 2016 19:20
[2016-12-17] VITALS (25 sets, daily range): BP systolic 116–206; BP diastolic 56–113; PULSE 99–124; RESP 9–21; TEMP 98–99.3; O2SAT 93–100
[2016-12-17] MEDS: INSULIN NovoLIN REGULAR SUPPLEMENTAL SCALE SQ SCH ×6 (00:20→20:53)
[2016-12-17] MEDS: fentaNYL DRIP 250 ML IV SCH (02:53)
[2016-12-17] MEDS: PIPERACIL-TAZO 4.5 GM PREMIX 100 ML IV SCH ×3 (02:53→17:47)
[2016-12-17] MEDS: CHLORHEXIDINE GLUCONATE 2 % 1 PACK (2 CLOTHS) TOP SCH (03:00)
[2016-12-17] MEDS: RESP: ALBUTEROL 2.5 MG/IPRATROPIUM 0.5 MG NEB (SCH) NEB ×6 (04:20→23:30)
[2016-12-17 04:32] LABS: AUTOMATED NEUTROPHIL # 4.7 TH/MM3 (1.8-7.7); BASOPHIL % 0.6 % (0.0-2.0); EOSINOPHIL # 0.4 TH/MM3 (0-0.4); EOSINOPHIL % 5.2 % (0.0-4.0); HEMATOCRIT 33.6 % (39.0-51.0); LYMPH % 15.4 % (9.0-44.0); LYMPHOCYTE # 1.1 TH/MM3 (1.0-4.8); MEAN CELL VOLUME 94.1 FL (80.0-100.0); MEAN CORPUSCULAR HEMOGLOBIN 32.3 PG (27.0-34.0); MEAN CORPUSCULAR HGB CONC 34.3 % (32.0-36.0); MONO % 9.8 % (0.0-8.0); PLATELET COUNT 58 TH/MM3 (150-450); RED BLOOD COUNT 3.57 MIL/MM3 (4.50-5.90); RED CELL DISTRIBUTION WIDTH 13.3 % (11.6-17.2); WHITE BLOOD COUNT 6.8 TH/MM3 (4.0-11.0)
[2016-12-17 04:36] LABS: HEMO FLAGS AUTO DIFF
[2016-12-17 05:02] LABS: BICARBONATE 28.6 MEQ/L (21.0-32.0); MAGNESIUM 1.9 MG/DL (1.5-2.5); POTASSIUM 3.8 MEQ/L (3.5-5.1)
[2016-12-17] MEDS: ARTIFICIAL TEARS OPTH SOLN 15 ML BTL EACH EYE SCH ×2 (05:43→12:58)
[2016-12-17] MEDS: PROPOFOL 1000 MG/100 ML INJ 100 ML IV SCH (05:44)
[2016-12-17] MEDS: METOPROLOL TARTRATE 25 MG TAB PO SCH ×3 (06:00→22:05)
[2016-12-17] MEDS: FREE WATER G-TUBE SCH ×3 (06:00→17:44)
[2016-12-17 07:13] LABS: PLATELET ESTIMATE SMEAR LOW (NORMAL); PLATELET MORPHOLOGY NORMAL (NORMAL); SCAN/DIFF AUTO DIFF CONFIRMED
[2016-12-17] MEDS: CHLORHEXIDINE 0.12% (ORAL KIT) 15 ML CUP MT SCH ×2 (08:00→20:00)
[2016-12-17] MEDS ORDERED: BUMETANIDE INJ 1 MG/4 ML VIAL IV PUSH ONE (08:45)
--- NOTE | 2016-12-17 08:50 | HHI.CCPN ---
Subjective Remarks/Hospital Course Patient is a 66 yo white male with past medical history of type 2 diabetes, hypertension, dyslipidemia who was brought into the emergency department for evaluation of severe weakness and lethargy. Patient apparently has been noncompliant with his insulin as per EMS and multiple of empty bottles of Mountain Dew was found at his home. He was found to be in feces all around his body. Apparently patient fell and was not able to get off the floor for several hours. Lab work revealed leukocytosis at 16.2., VBG showed metabolic acidosis with pH of 7.24. HCO3 of 15, Potassium is low at 2.6. Blood glucose was extremely elevated at 1717, serum acetone was positive, I advised ED to replace atleast 160 meq potassium as there is risk of further hypokalemia with insulin infusion. Lactic acid is elevated at 6.9. Creatinine 2.69. CPK 2392. Pt empirically cover with vancomycin and zosyn. I evaluated the patient in the emergency department and then again in the ICU. He is critically ill, tremulous. Extremely dehydrated, tachycardic. Additional 2 L fluid bolus was ordered. DKA protocol initiated, after repeat CMP. Panculture sent. I have also placed a right subclavian central line to facilitate, faster potassium replacement and also for fluid resuscitation 12/13: Afebrile. Currently resting in bed. Asking what time it is at the present time. Slightly improved appetite. Denies chest pain or shortness of breath. 12/14: Afebrile. Agitated overnight. Found out overnight drinks significant "[place] saki" alcohol daily. CIWA protocol initiated. Thiamine multivitamin and folate started. Insulin drip currently on schedule Levemir twice a day. Denies chest pain. Confused. Subjective 12/15: Afebrile. Intubated yesterday due to altered mental status/likely EtOH withdrawals. This a.m., noted post decrease to 84-57 on heparin drip. RN states melanotic stool. Hemoglobin appears stable however will check serial hemoglobin. Hemoccult still pending. Will make nothing by mouth except for meds. Continue aspirin and Plavix in light of non-STEMI. 12/16 Patient is sedated with Diprivan, Fentanyl and intubated. For EGD today. Afebrile. 12/17 No events overnight. Remains intubated and sedated with Diprivan and Fentanyl. 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, grade 1 varices s/p epi erosive gastritis and erosive duodenitis without bleeding Objective Vital Signs Date Time Temp Pulse Resp B/P Pulse Ox O2 Delivery O2 Flow Rate FiO2 12/17/16 06:00 111 12/17/16 06:00 16 136/71 97 12/17/16 04:20 35 12/17/16 04:00 98.5 12/14/16 08:09 Nasal Cannula 2.00 Intake and Output 12/16/16 12/16/16 12/16/16 07:59 15:59 23:59 Intake Total 1410 ml 1310 ml 338 ml Output Total 550 ml 1950 ml 1250 ml Balance 860 ml -640 ml -912 ml Result Diagram: 12/17/16 0325 12/17/16 0325 Other Results Laboratory Tests Test 12/17/16 03:25 White Blood Count 6.8 TH/MM3 Red Blood Count 3.57 MIL/MM3 Hemoglobin 11.5 GM/DL Hematocrit 33.6 % Mean Corpuscular Volume 94.1 FL Mean Corpuscular Hemoglobin 32.3 PG Mean Corpuscular Hemoglobin 34.3 % Concent Red Cell Distribution Width 13.3 % Platelet Count 58 TH/MM3 Mean Platelet Volume 9.0 FL Neutrophils (%) (Auto) 69.0 % Lymphocytes (%) (Auto) 15.4 % Monocytes (%) (Auto) 9.8 % Eosinophils (%) (Auto) 5.2 % Basophils (%) (Auto) 0.6 % Neutrophils # (Auto) 4.7 TH/MM3 Lymphocytes # (Auto) 1.1 TH/MM3 Monocytes # (Auto) 0.7 TH/MM3 Eosinophils # (Auto) 0.4 TH/MM3 Basophils # (Auto) 0.0 TH/MM3 CBC Comment AUTO DIFF Differential Comment AUTO DIFF CONFIRMED Platelet Estimate LOW Platelet Morphology Comment NORMAL Sodium Level 148 MEQ/L Potassium Level 3.8 MEQ/L Chloride Level 114 MEQ/L Carbon Dioxide Level 28.6 MEQ/L Anion Gap 5 MEQ/L Blood Urea Nitrogen 18 MG/DL Creatinine 0.95 MG/DL Estimat Glomerular Filtration 80 ML/MIN Rate Random Glucose 159 MG/DL Calcium Level 8.0 MG/DL Phosphorus Level 2.0 MG/DL Magnesium Level 1.9 MG/DL Imaging Last Impressions Chest X-Ray 12/16/16 0600 Signed Impressions: Service Date/Time: Friday, December 16, 2016 05:01 - CONCLUSION: 1. Cardiomegaly with increased pulmonary vascularity. 2. Support lines and tubes are unchanged. Deshanw Daugherty MD Abdomen/Pelvis CT 12/15/16 0000 Signed Impressions: Service Date/Time: Thursday, December 15, 2016 17:17 - CONCLUSION: 1. Cirrhotic appearing liver with mild ascites. There is also splenomegaly which likely secondary to portal hypertension. 2. Calcified gallstones. The gallbladder is distended. This appearance is unchanged from the prior exam. 3. 5 mm nonobstructing left renal stone. 4. The cause of the patient's bloody stool is not identified on this noncontrast CT examination. Mucosal lesions may not be seen on CT. 5. Bibasilar areas of consolidation or atelectasis. Kennedy Chatman MD Head CT 12/14/16 0000 Signed Impressions: Service Date/Time: Wednesday, December 14, 2016 09:12 - CONCLUSION: No acute disease. Omar Holland MD Renal Ultrasound 12/13/16 0000 Signed Impressions: Service Date/Time: Tuesday, December 13, 2016 18:07 - CONCLUSION: 1. The kidneys are grossly unremarkable in appearance with no definite evidence of hydronephrosis. There was suboptimal visualization of the left kidney. 2. Manrique catheter in the bladder. 3. Small amount of free fluid. Celio Melton MD Objective Remarks GEN: 66-year-old obese male, critically ill and orotracheally intubated SKIN: Warm and dry. No rash HEAD: Atraumatic. Normocephalic. EYES: Pupils equal and round 4 mm reactive to light and accommodation bilaterally.. ENT: No nasal bleeding or discharge. NECK: Trachea midline. No JVD. CARDIOVASCULAR: Distant. RRR. S1, S2 no S4 without murmur or clicks, gallops or rubs RESPIRATORY: Diminished breath sounds due to body habitus. No wheezes rales or rhonchi. GASTROINTESTINAL: Abdomen soft, non-tender, obese. Hypoactive bowel sounds appreciated MUSCULOSKELETAL: Extremities without significant peripheral edema. Chronic venous stasis bilateral lower extremity's. NEUROLOGICAL: Arousable on the ventilator and will follow commands. Moves all 4 extremities spontaneously. Normal sensation. Date of Insertion: Dec 12, 2016 Line: Central Venous Catheter Side: Right Location: Subclavian A/P Assessment and Plan NEURO/PSYCH: Acute metabolic encephalopathy EtOH - On Diprivan and Fentanyl infusion for sedation. Daily sedation vacation CIWA protocol initiated Thiamine, folate and multivitamin CT head 03/16 revealed no acute intracranial findings Acetaminophen if necessary for fever/pain RESP: Acute respiratory failure secondary to AMS PRVC 16/550/1.06/20/39 Ventilator bundle - DuoNeb every 6 hours scheduled with albuterol every 2 hours when necessary Spontaneous breathing trials daily CV: Troponin elevation/NSTEMI Lactic acidosis History of hypertension History of dyslipidemia Grade 1 diastolic dysfunction -Monitor HR and BP keep MAP>65mmHg. Lactic acid 1.5 - Cardiology consulted Dr. Burnett. She was on IV heparin drip per protocol, however discontinued secondary to heme positive stools Continue on aspirin 81 mg daily and metoprolol 12.5 mg every 8. Will hold Plavix in lieu of worsening thrombocytopenia discussed with cards -Dr. Burnett -Troponins trending downward: 0.14 12/16 from 2.32. -2d echo 12/13 revealed EF 55-60%. LVH. Grade 1 diastolic dysfunction. GI: Liver cirrhosis? 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 Diurese with Bumex 1mg x1. WIll need Phos replacement today. -Negative urine eosinophils. Prerenal indices. Negative hydronephrosis on renal ultrasound. -Increase Free water 250ml Q6, monitor sodium level. ID: Severe sepsis source unclear - Received IV vancomycin and Zosyn in the ED. - Continue Zosyn monitor for signs of infections ( Fever, WBC) - 12/12 BC: No growth -12/14: Sputum cx: normal resp jared -12/15 C-diff PCR negative HEME: Macrocytosis Leukocytosis- Resolved Thrombocytopenia - Monitor CBC, CMP, coags. Fibrinogen level 270 on 12/15 - HIT panel: Negative ENDO/FEN: DM Hypernatremia On SSI ( high scale) with accuchecks PROPH: - Bilateral lower extremity SCDs. IV Protonix twice a day. IV heparin held in light of possible lower GI bleed and Hemoccult positive LINES: - Right subclavian central line placed 12/12 Level III Chdii Thompson MD Dec 17, 2016 08:50
[2016-12-17] MEDS: THIAMINE HCL 100 MG TAB PO SCH (08:57)
[2016-12-17] MEDS: MULTIVITAMIN TAB PO SCH (08:57)
[2016-12-17] MEDS: FOLIC ACID 1 MG TAB PO SCH (08:57)
[2016-12-17] MEDS: ASPIRIN EC 81 MG TABEC PO SCH (08:57)
--- NOTE | 2016-12-17 10:37 | HHI.GIFU ---
Subjective Remarks Resting in bed. Lightly sedated on the ventilator. On CPAP, possible extubation today. Pt awake and able to nod "yes/no" Denies abdominal pain. No bleeding per nurse. Objective Vitals I&O Vital Signs Date Time Temp Pulse Resp B/P Pulse Ox O2 Delivery O2 Flow Rate FiO2 12/17/16 08:45 35 12/17/16 08:41 97 35 12/17/16 08:00 99.0 111 18 155/74 100 12/17/16 08:00 35 12/17/16 08:00 111 12/17/16 08:00 111 155/74 12/17/16 06:00 111 12/17/16 06:00 111 16 136/71 97 12/17/16 05:00 110 16 128/64 94 12/17/16 04:20 96 35 12/17/16 04:00 110 12/17/16 04:00 98.5 110 16 139/68 96 12/17/16 04:00 35 12/17/16 03:02 118 21 168/73 97 12/17/16 03:01 119 19 206/113 97 12/17/16 03:00 120 21 98 12/17/16 02:00 104 16 146/80 99 12/17/16 02:00 104 12/17/16 01:44 98 35 12/17/16 01:00 102 16 121/59 99 12/17/16 00:00 98.3 99 16 116/58 97 12/17/16 00:00 99 16 116/58 97 12/17/16 00:00 99 12/17/16 00:00 35 12/16/16 23:00 100 16 117/58 98 12/16/16 22:00 103 15 146/81 98 12/16/16 22:00 103 12/16/16 21:00 108 16 137/67 97 12/16/16 20:00 108 12/16/16 20:00 35 12/16/16 20:00 98.4 108 17 147/77 100 12/16/16 19:59 99 35 12/16/16 18:00 104 12/16/16 16:00 97.6 102 17 129/59 97 12/16/16 16:00 35 12/16/16 16:00 102 12/16/16 14:29 99 35 12/16/16 14:00 112 12/16/16 13:00 35 12/16/16 12:00 98.4 104 16 128/73 96 12/16/16 12:00 104 12/16/16 11:10 98 35 I/O 12/16/16 12/16/16 12/16/16 12/17/16 12/17/16 12/17/16 07:00 15:00 23:00 07:00 15:00 23:00 Intake Total 1410 ml 1310 ml 338 ml 342 ml Output Total 550 ml 1950 ml 1250 ml 400 ml Balance 860 ml -640 ml -912 ml -58 ml IV Total 1410 ml 1110 ml 338 ml 342 ml Tube Feeding 0 ml Other 200 ml 0 ml Output Urine Total 425 ml 1850 ml 1250 ml 400 ml Gastric Drainage Total 125 ml 100 ml # Bowel Movements 0 0 Laboratory Laboratory Tests Test 12/17/16 03:25 White Blood Count 6.8 Red Blood Count 3.57 Hemoglobin 11.5 Hematocrit 33.6 Mean Corpuscular Volume 94.1 Mean Corpuscular Hemoglobin 32.3 Mean Corpuscular Hemoglobin 34.3 Concent Red Cell Distribution Width 13.3 Platelet Count 58 Mean Platelet Volume 9.0 Neutrophils (%) (Auto) 69.0 Lymphocytes (%) (Auto) 15.4 Monocytes (%) (Auto) 9.8 Eosinophils (%) (Auto) 5.2 Basophils (%) (Auto) 0.6 Neutrophils # (Auto) 4.7 Lymphocytes # (Auto) 1.1 Monocytes # (Auto) 0.7 Eosinophils # (Auto) 0.4 Basophils # (Auto) 0.0 CBC Comment AUTO DIFF Differential Comment AUTO DIFF CONFIRMED Platelet Estimate LOW Platelet Morphology Comment NORMAL Sodium Level 148 Potassium Level 3.8 Chloride Level 114 Carbon Dioxide Level 28.6 Anion Gap 5 Blood Urea Nitrogen 18 Creatinine 0.95 Estimat Glomerular Filtration 80 Rate Random Glucose 159 Calcium Level 8.0 Phosphorus Level 2.0 Magnesium Level 1.9 Date/Time Procedure Status Source Growth 12/15/16 05:15 Stool Occult Blood (LUIS) - Final Complete Stool Stool HEMOCCULT POSITIVE 12/14/16 16:00 Gram Stain - Final Complete Sputum Endotracheal 12/14/16 16:00 Sputum Culture - Final Complete Sputum Endotracheal MODERATE GROWTH NORMAL RESPIRATORY JARED 12/12/16 12:05 Aerobic Blood Culture - Preliminary Resulted Blood Peripheral NO GROWTH IN 4 DAYS 12/12/16 12:05 Anaerobic Blood Culture - Preliminary Resulted Blood Peripheral NO GROWTH IN 4 DAYS Imaging Last Impressions Chest X-Ray 12/16/16 0600 Signed Impressions: Service Date/Time: Friday, December 16, 2016 05:01 - CONCLUSION: 1. Cardiomegaly with increased pulmonary vascularity. 2. Support lines and tubes are unchanged. Deshawn Daugherty MD Abdomen/Pelvis CT 12/15/16 0000 Signed Impressions: Service Date/Time: Thursday, December 15, 2016 17:17 - CONCLUSION: 1. Cirrhotic appearing liver with mild ascites. There is also splenomegaly which likely secondary to portal hypertension. 2. Calcified gallstones. The gallbladder is distended. This appearance is unchanged from the prior exam. 3. 5 mm nonobstructing left renal stone. 4. The cause of the patient's bloody stool is not identified on this noncontrast CT examination. Mucosal lesions may not be seen on CT. 5. Bibasilar areas of consolidation or atelectasis. Kennedy Chatman MD Head CT 12/14/16 0000 Signed Impressions: Service Date/Time: Wednesday, December 14, 2016 09:12 - CONCLUSION: No acute disease. Omar Holland MD Renal Ultrasound 12/13/16 0000 Signed Impressions: Service Date/Time: Tuesday, December 13, 2016 18:07 - CONCLUSION: 1. The kidneys are grossly unremarkable in appearance with no definite evidence of hydronephrosis. There was suboptimal visualization of the left kidney. 2. Manrique catheter in the bladder. 3. Small amount of free fluid. Celio Melton MD Physical Exam HEENT: Normocephalic CHEST: Resp. even/unlabored, diminished bases. OETT to vent. CARDIAC: RRR ABDOMEN: Soft, obese, nondistended, nontender; no hepatosplenomegaly; bowel sounds are present in all four quadrants. EXTREMITIES: Generalized edema. SKIN: Spotted rash to neck/ant chest [employer]UST[employer]ER [employer] SERVICES MANAGER: Lightly sedated on the ventilator, follows commands Assessment and Plan Plan ASSESSMENT - Melena. Abdomen/Pelvis CT (12/15/16)-----> 1. Cirrhotic appearing liver with mild ascites. There is also splenomegaly which likely secondary to portal hypertension. 2. Calcified gallstones. The gallbladder is distended. This appearance is unchanged from the prior exam. 3. 5 mm nonobstructing left renal stone. 4. The cause of the patient's bloody stool is not identified on this noncontrast CT examination. Mucosal lesions may not be seen on CT. 5. Bibasilar areas of consolidation or atelectasis. 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 Bleeding started when the scope was pushed through the stricture. Injection of 4cc epi provided control of bleeding OG tube removed. Stomach: erosive gastritis without bleeding. Duodenum: erosive duodenitis without bleeding. No signs of active bleeding. HH stable 11.5/33.6. No melena today. PPI - Anemia secondary to acute blood loss. HH stable 11.5/33.6. PPI - Thrombocytopenia. Plt 58. - Acute metabolic encephalopathy. Ammonia 16. Improved. - Liver cirrhosis. CT as above with cirrhotic appearing liver, ascites, splenomegaly likely secondary to portal hypertension. Varices on EGD. T. Bili 0.7, AST 40, ALT 35, Alk Phosph 110. - ETOH abuse. Thiamine, MVI. ETOH cessation. - Sepsis. BCx 4 days. Sputum with moderate growth normal respiratory jared. Zosyn. - ARF, resolved. - Elevated troponin, NSTEMI. Cardiology following, was planning for ischemic evaluation, but on hold secondary to thrombocyotpenia and melena. Plavix stopped, if further drop in Plts, then the plan is to stop ASA. Hold cath as they are not able to give further anti-coagulants/anti- platelets during procedure, con't medical management - DKA (resolved) HTN, Hyperlipidemia, DM, DKA - noncompliant, per primary. Plan: - Glucerna 1.5 at 30cc/hr - Blade Operator evaluation for TF recommendations - If extubated, okay for heart healthy diabetic diet per GI standpoint - Cont. PPI - Monitor CBC, Platelets - Monitor LFT - Complete ETOH cessation- will d/w patient once extubated - Supportive care - Further recommendations to follow based on results of above - Pt seen and examined by Dr. Randle and myself and this note is written on his behalf Meena Tovar Dec 17, 2016 10:37
[2016-12-17] MEDS: PANTOPRAZOLE SODIUM 40 MG VIAL IV PUSH SCH ×2 (10:47→22:05)
--- NOTE | 2016-12-17 11:33 | PD.CARD.PN ---
Subjective Subjective Remarks Currently on CPAP trial on vent Denies chest pain EGD showing grade 1 varices, erosive gastritis/duodenitis Objective Medications Current Medications Medications (Trade) Dose Ordered Sig/Epi Route Start Time Stop Time Status Last Admin Miscellaneous Information 1 [id number] XX 12/12/16 13:30 (Chlorhexidine 2% Cloth) 3 pack Taper DAILY@04 TOP 12/13/16 04:00 12/09/17 03:59 12/17/16 03:00 (Chlorhexidine 2% Cloth) 3 pack UNSCH PRN TOP 12/12/16 13:30 (Ecotrin Ec) 81 mg DAILY PO 12/12/16 16:00 12/17/16 08:57 Metoprolol Tartrate 12.5 mg 12.5 mg Q8HR PO 12/12/16 16:00 12/16/16 13:52 (Heparin-D5W Inj) 250 ml @ 0 mls/hr TITRATE IV 12/12/16 16:30 Hold 12/14/16 20:50 (Pill Splitter) 1 ea UNSCH PRN OTHER 12/12/16 16:45 (D50w (Vial) Inj) 50 ml UNSCH PRN IV 12/13/16 17:30 (Glucagon Inj) 1 mg UNSCH PRN OTHER 12/13/16 17:30 (NovoLIN R SUPPLEMENTAL SCALE) 1 Q4HR SQ 12/13/16 20:00 12/17/16 08:00 (Romazicon Inj) 0.2 mg Q1M PRN IV PUSH 12/14/16 07:30 12/14/16 11:41 (Ativan) 1 mg Q4H PRN PO 12/14/16 07:30 (Ativan Inj) 1 mg Q4H PRN IV PUSH 12/14/16 07:30 (Ativan) 2 mg Q2H PRN PO 12/14/16 07:30 (Ativan Inj) 2 mg Q2H PRN IV PUSH 12/14/16 07:30 (Ativan Inj) 2 mg Q1H PRN IV PUSH 12/14/16 07:30 (Ativan Inj) 2 mg Q15M PRN IV PUSH 12/14/16 07:30 (Folate) 1 mg DAILY PO 12/14/16 09:00 12/17/16 08:57 Multivitamins 1 tab 1 tab DAILY PO 12/14/16 09:00 12/17/16 08:57 Potassium Chloride 100 ml @ 50 mls/hr Q2H PRN IV 12/14/16 07:45 (KCl 20 Meq Premix Inj) 100 ml @ 50 mls/hr Q2H PRN IV 12/14/16 07:45 Potassium Bicarb/ Potassium Chloride 50 meq 50 meq UNSCH PRN PO 12/14/16 07:45 Potassium Chloride 100 ml @ 25 mls/hr UNSCH PRN IV 12/14/16 07:45 12/15/16 06:08 Potassium Chloride 100 ml @ 50 mls/hr Q2H PRN IV 12/14/16 07:45 (Magnesium Sulfate Inj/NS Inj) 100 ml @ 50 mls/hr UNSCH PRN IV 12/14/16 07:45 Magnesium Oxide 800 mg 800 mg UNSCH PRN PO 12/14/16 07:45 (Magnesium Sulfate Inj/NS Inj) 100 ml @ 50 mls/hr UNSCH PRN IV 12/14/16 07:45 Potassium Phosphate 2000 mg 2,000 mg Q4H PRN PO 12/14/16 07:45 (Sodium Phosphate Inj/NS 250 ml Inj) 250 ml @ 42 mls/hr UNSCH PRN IV 12/14/16 07:45 12/17/16 10:41 Potassium Phosphate 2000 mg 2,000 mg UNSCH PRN PO/TUBE 12/14/16 07:45 (Potassium Phosphate Inj/NS 250 ml Inj) 260 ml @ 42 mls/hr UNSCH PRN IV 12/14/16 07:45 (Levemir Inj) 40 units Q12HR SQ 12/14/16 09:00 Hold 12/15/16 09:00 Chlorhexidine Gluconate 15 ml 15 ml BID@08,20 MT 12/14/16 20:00 12/17/16 08:00 Propofol 100 ml @ 0 mls/hr TITRATE IV 12/14/16 12:30 12/17/16 05:44 Fentanyl Citrate 250 ml @ 0 mls/hr TITRATE IV 12/14/16 12:30 12/17/16 02:53 (Levophed-Dextrose Drip) 250 ml @ 0 mls/hr TITRATE IV 12/14/16 15:00 Terbutaline Sulfate 1 mg 1 mg UNSCH PRN SQ 12/14/16 15:00 (Zosyn 4.5 Gm Premix) 100 ml @ 200 mls/hr Q8H IV 12/15/16 11:00 12/17/16 10:47 (Protonix Inj) 40 mg Q12H IV PUSH 12/15/16 11:00 12/17/16 10:47 (Tears Naturale Opth Soln) 1 drop Q8HR EACH EYE 12/15/16 14:00 12/17/16 05:43 (Vitamin B1) 100 mg DAILY PO 12/17/16 09:00 12/17/16 08:57 (Free Water) 250 ml Q6HR G-TUBE 12/17/16 12:00 Vital Signs / I&O Vital Signs Date Time Temp Pulse Resp B/P Pulse Ox O2 Delivery O2 Flow Rate FiO2 12/17/16 10:00 120 12/17/16 08:45 35 12/17/16 08:41 97 35 12/17/16 08:00 99.0 111 18 155/74 100 12/17/16 08:00 35 12/17/16 08:00 111 12/17/16 08:00 111 155/74 12/17/16 06:00 111 12/17/16 06:00 111 16 136/71 97 12/17/16 05:00 110 16 128/64 94 12/17/16 04:20 96 35 12/17/16 04:00 110 12/17/16 04:00 98.5 110 16 139/68 96 12/17/16 04:00 35 12/17/16 03:02 118 21 168/73 97 12/17/16 03:01 119 19 206/113 97 12/17/16 03:00 120 21 98 12/17/16 02:00 104 16 146/80 99 12/17/16 02:00 104 12/17/16 01:44 98 35 12/17/16 01:00 102 16 121/59 99 12/17/16 00:00 98.3 99 16 116/58 97 12/17/16 00:00 99 16 116/58 97 12/17/16 00:00 99 12/17/16 00:00 35 12/16/16 23:00 100 16 117/58 98 12/16/16 22:00 103 15 146/81 98 12/16/16 22:00 103 12/16/16 21:00 108 16 137/67 97 12/16/16 20:00 108 12/16/16 20:00 35 12/16/16 20:00 98.4 108 17 147/77 100 12/16/16 19:59 99 35 12/16/16 18:00 104 12/16/16 16:00 97.6 102 17 129/59 97 12/16/16 16:00 35 12/16/16 16:00 102 12/16/16 14:29 99 35 12/16/16 14:00 112 12/16/16 13:00 35 12/16/16 12:00 98.4 104 16 128/73 96 12/16/16 12:00 104 I/O 12/16/16 12/16/16 12/16/16 12/17/16 12/17/16 12/17/16 07:00 15:00 23:00 07:00 15:00 23:00 Intake Total 1410 ml 1310 ml 338 ml 342 ml Output Total 550 ml 1950 ml 1250 ml 400 ml 1150 ml Balance 860 ml -640 ml -912 ml -58 ml -1150 ml IV Total 1410 ml 1110 ml 338 ml 342 ml Tube Feeding 0 ml Other 200 ml 0 ml Output Urine Total 425 ml 1850 ml 1250 ml 400 ml 1150 ml Gastric Drainage Total 125 ml 100 ml # Bowel Movements 0 0 Physical Exam GENERAL: Awake on the vent SKIN: Warm and dry. HEAD: Atraumatic. Normocephalic. EYES: Pupils equal and round. No scleral icterus. No injection or drainage. ENT: No nasal bleeding or discharge. Mucous membranes pink and moist. NECK: Trachea midline. No JVD. CARDIOVASCULAR: Tachy, regular RESPIRATORY: No accessory muscle use. Clear to auscultation. Breath sounds equal bilaterally. GASTROINTESTINAL: Abdomen soft, non-tender, nondistended. Hepatic and splenic margins not palpable. MUSCULOSKELETAL: Extremities without clubbing, cyanosis, or edema. No obvious deformities. NEUROLOGICAL: Awake on the vent Laboratory Laboratory Tests Test 12/17/16 03:25 White Blood Count 6.8 TH/MM3 Red Blood Count 3.57 MIL/MM3 Hemoglobin 11.5 GM/DL Hematocrit 33.6 % Mean Corpuscular Volume 94.1 FL Mean Corpuscular Hemoglobin 32.3 PG Mean Corpuscular Hemoglobin 34.3 % Concent Red Cell Distribution Width 13.3 % Platelet Count 58 TH/MM3 Mean Platelet Volume 9.0 FL Neutrophils (%) (Auto) 69.0 % Lymphocytes (%) (Auto) 15.4 % Monocytes (%) (Auto) 9.8 % Eosinophils (%) (Auto) 5.2 % Basophils (%) (Auto) 0.6 % Neutrophils # (Auto) 4.7 TH/MM3 Lymphocytes # (Auto) 1.1 TH/MM3 Monocytes # (Auto) 0.7 TH/MM3 Eosinophils # (Auto) 0.4 TH/MM3 Basophils # (Auto) 0.0 TH/MM3 CBC Comment AUTO DIFF Differential Comment AUTO DIFF CONFIRMED Platelet Estimate LOW Platelet Morphology Comment NORMAL Sodium Level 148 MEQ/L Potassium Level 3.8 MEQ/L Chloride Level 114 MEQ/L Carbon Dioxide Level 28.6 MEQ/L Anion Gap 5 MEQ/L Blood Urea Nitrogen 18 MG/DL Creatinine 0.95 MG/DL Estimat Glomerular Filtration 80 ML/MIN Rate Random Glucose 159 MG/DL Calcium Level 8.0 MG/DL Phosphorus Level 2.0 MG/DL Magnesium Level 1.9 MG/DL Assessment and Plan Problem List: (1) DKA (diabetic ketoacidoses) (2) NSTEMI (non-ST elevated myocardial infarction) (3) Medical non-compliance (4) Type 2 diabetes mellitus (5) Acute kidney failure (6) Lactic acidosis (7) Hypokalemia (8) Diabetic hyperosmolar non-ketotic state (9) Severe sepsis (10) Cirrhosis of liver (11) Poor personal hygiene Assessment and Plan 1) NSTEMI possible Type 1 vs 2 2) EF 55-60% 3) Planned ischemic evaluation, but since has had heme-positive stools with melena, drop in Hgb, and a drop in platelets Platelets now 49,000... Plavix stopped, if further drop in PLTs then will need to stop ASA No further ischemic evaluation at this time due to current platelet levels, unable to give further anti-coagulants/anti-platelets during procedure, con't medical management 4) Will see PRN, call with questions Problem Qualifiers (1) DKA (diabetic ketoacidoses): Qualified Code: E13.10 - Diabetic ketoacidosis without coma associated with type 2 diabetes mellitus (2) Type 2 diabetes mellitus: (3) Cirrhosis of liver: Delano Burnett DO Dec 17, 2016 11:33
[2016-12-17] MEDS ORDERED: RESP: ALBUTEROL 2.5 MG/IPRATROPIUM 0.5 MG NEB (PRN) NEB (12:00)
[2016-12-17 12:15] LABS: BLOOD GAS BASE EXCESS -0.9 mmol/L (-2-2); BLOOD GAS CARBOXYHEMOGLOBIN 1.8 % (0-4); BLOOD GAS HCO3 23 mmol/L (22-26); BLOOD GAS METHEMOGLOBIN 1.1 % (0-2); BLOOD GAS O2 HGB SATURATION 96 % (90-100); BLOOD GAS OXYGEN CONTENT 16.7 Vol % (12.0-20.0); BLOOD GAS PCO2 38 mmHg (38-42); BLOOD GAS PO2 109 mmHg (61-120); BLOOD GAS TOTAL HGB 12.3 G/DL (12.0-16.0); CRITICAL VALUE NO; DRAW SITE RT RADIAL; FIO2 35 %; NUMBER OF ARTERIAL PUNCTURES 1; OXYGEN DEVICE VENTILATOR; TEMP CORR TO 98.6; ULNAR PULSE PRESENT; VENT SETTINGS CPAP/PS8/PEEP5
[2016-12-17 12:16] LABS: STAT NO
[2016-12-17 13:42] LABS: APTT (PATIENT) 27.2 SEC (24.3-30.1)
[2016-12-17] MEDS ORDERED: HYDROmorphone HCL PF 1 MG/ML VIAL IV PUSH PRN ×2 (19:45)
--- NOTE | 2016-12-17 20:04 | MP ---
cc: RAEANN NJ HAROLD H. MD DATE OF SURGERY 12/16/2016 PROCEDURE Esophagogastroduodenoscopy with control of bleeding. INDICATION Melena and blood in the stool. REFERRING PHYSICIAN Referred by Dr. Nj PROCEDURE After informed consent was obtained the patient was in the intensive care unit on the ventilator. He was sedated on a propofol drip. He was given fentanyl 100 micrograms IV prior to starting the procedure. After that, the Pentax video gastroscope was inserted in the oropharynx and advanced down through the esophagus to the GE junction. There was some resistance to passage of the scope and with gentle forward pressure the scope did pass into the stomach. There was some blood noted at that time. The scope was advanced down through the stomach and to the descending duodenum. It was then slowly withdrawn, examining the mucosal surfaces carefully. Retroflexed examination was performed and there was a small amount of blood accumulating in the cardia of the stomach. The scope was then straightened and pulled into the upper part of the stomach. It was pulled back into the esophagus. A blood clot had formed there. This was pulled out the mouth and discarded. The scope was reinserted and the distal esophagus was visualized. There was minor bleeding from the stricture where the scope had passed. This continued to ooze blood because of the patient's treatment with Plavix and aspirin. This site was injected with epinephrine 1:10,000, a total of 4 cc was injected. This resulted in control of the bleeding and there was no bleeding at the time the procedure was terminated. During the procedure the orogastric tube was removed. The scope was then withdrawn and the procedure was terminated. He tolerated the procedure well and remained in intensive care unit in serious condition. FINDINGS 1. In the esophagus there was a stricture at the GE junction that prevented easy passage of the scope. Passage of the scope started some bleeding at the stricture site. This site was injected with 4 cc of epinephrine 1:10,000 as described above. 2. The orogastric tube was removed. 3. There was grade 1 esophageal varices in the distal esophagus. 4. In the stomach there was erosive gastritis without any active bleeding. 5. In the duodenum there was erosive duodenitis without any active bleeding. IMPRESSION 1. Distal esophageal stricture and esophageal varices. 2. Active bleeding from the stricture site after passage of the scope. This was controlled with 4 cc of epinephrine 1:10,000. 3. Erosive gastritis and duodenitis. PLAN 1. Will leave the orogastric tube out for 24 hours then its okay to reinsert. 2. Continue present medication. If bleeding continues discontinue Plavix and aspirin if possible given the patient's cardiac condition. 3. We will follow along with you. Josh Randle MD HHS/EO /7:27 PM /7:48 PM
[2016-12-17] MEDS ORDERED: HYDROCORTISONE/PRAMOXINE RECTAL FOAM 10 GM CAN RECTAL ONE (21:00)
[2016-12-18] VITALS (23 sets, daily range): BP systolic 114–146; BP diastolic 55–83; PULSE 94–118; RESP 14–26; TEMP 97.9–99.6; O2SAT 91–100
[2016-12-18] MEDS: INSULIN NovoLIN REGULAR SUPPLEMENTAL SCALE SQ SCH ×7 (00:06→23:12)
[2016-12-18] MEDS: ARTIFICIAL TEARS OPTH SOLN 15 ML BTL EACH EYE SCH ×4 (00:07→19:49)
[2016-12-18] MEDS: PIPERACIL-TAZO 4.5 GM PREMIX 100 ML IV SCH ×3 (01:59→19:00)
[2016-12-18] MEDS: RESP: ALBUTEROL 2.5 MG/IPRATROPIUM 0.5 MG NEB (SCH) NEB ×6 (03:35→23:07)
[2016-12-18] MEDS: CHLORHEXIDINE GLUCONATE 2 % 1 PACK (2 CLOTHS) TOP SCH ×2 (04:00→19:29)
[2016-12-18 04:35] LABS: AUTOMATED NEUTROPHIL # 4.3 TH/MM3 (1.8-7.7); BASOPHIL % 0.4 % (0.0-2.0); EOSINOPHIL # 0.2 TH/MM3 (0-0.4); EOSINOPHIL % 2.9 % (0.0-4.0); HEMATOCRIT 31.6 % (39.0-51.0); LYMPH % 16.4 % (9.0-44.0); MEAN CELL VOLUME 94.8 FL (80.0-100.0); MEAN CORPUSCULAR HEMOGLOBIN 31.6 PG (27.0-34.0); MEAN CORPUSCULAR HGB CONC 33.3 % (32.0-36.0); MONO % 12.7 % (0.0-8.0); NEUT % 67.6 % (16.0-70.0); PLATELET COUNT 57 TH/MM3 (150-450); RED BLOOD COUNT 3.33 MIL/MM3 (4.50-5.90); RED CELL DISTRIBUTION WIDTH 13.3 % (11.6-17.2); WHITE BLOOD COUNT 6.4 TH/MM3 (4.0-11.0)
[2016-12-18 04:36] LABS: APTT (PATIENT) 29.2 SEC (24.3-30.1)
[2016-12-18 04:40] LABS: HEMO FLAGS AUTO DIFF
[2016-12-18 05:03] LABS: BICARBONATE 27.5 MEQ/L (21.0-32.0); MAGNESIUM 1.9 MG/DL (1.5-2.5); POTASSIUM 3.3 MEQ/L (3.5-5.1)
[2016-12-18 05:41] LABS: BANDS 14 % (0-6); BASOPHILS 1 % (0-2); EOSINOPHILS 2 % (0-4); NEUTROPHIL # MANUAL DIFF 5.6 TH/MM3 (1.8-7.7); PLATELET ESTIMATE SMEAR LOW (NORMAL); PLATELET MORPHOLOGY NORMAL (NORMAL); POLYS (SEG NEUTROPHILS) 73 % (16-70); SCAN/DIFF FINAL DIFF MANUAL; WBC DIFF SAMPLE 100
[2016-12-18] MEDS: FREE WATER G-TUBE SCH ×2 (06:00)
[2016-12-18] MEDS: METOPROLOL TARTRATE 25 MG TAB PO SCH ×3 (06:05→21:53)
[2016-12-18] MEDS: POTASSIUM PHOSPHATE INJ 30 MMOL in SODIUM CHLOR 0.9% 250 ML INJ 250 ML IV PRN (06:06)
[2016-12-18] MEDS: CHLORHEXIDINE 0.12% (ORAL KIT) 15 ML CUP MT SCH ×2 (08:00→19:48)
[2016-12-18] MEDS: ASPIRIN EC 81 MG TABEC PO SCH (10:19)
[2016-12-18] MEDS: PANTOPRAZOLE SODIUM 40 MG VIAL IV PUSH SCH ×2 (10:19→21:53)
[2016-12-18] MEDS: THIAMINE HCL 100 MG TAB PO SCH (10:19)
[2016-12-18] MEDS: MULTIVITAMIN TAB PO SCH (10:19)
[2016-12-18] MEDS: FOLIC ACID 1 MG TAB PO SCH (10:19)
--- NOTE | 2016-12-18 12:43 | HHI.CCPN ---
Subjective Remarks/Hospital Course Patient is a 66 yo white male with past medical history of type 2 diabetes, hypertension, dyslipidemia who was brought into the emergency department for evaluation of severe weakness and lethargy. Patient apparently has been noncompliant with his insulin as per EMS and multiple of empty bottles of Mountain Dew was found at his home. He was found to be in feces all around his body. Apparently patient fell and was not able to get off the floor for several hours. Lab work revealed leukocytosis at 16.2., VBG showed metabolic acidosis with pH of 7.24. HCO3 of 15, Potassium is low at 2.6. Blood glucose was extremely elevated at 1717, serum acetone was positive, I advised ED to replace atleast 160 meq potassium as there is risk of further hypokalemia with insulin infusion. Lactic acid is elevated at 6.9. Creatinine 2.69. CPK 2392. Pt empirically cover with vancomycin and zosyn. I evaluated the patient in the emergency department and then again in the ICU. He is critically ill, tremulous. Extremely dehydrated, tachycardic. Additional 2 L fluid bolus was ordered. DKA protocol initiated, after repeat CMP. Panculture sent. I have also placed a right subclavian central line to facilitate, faster potassium replacement and also for fluid resuscitation 12/13: Afebrile. Currently resting in bed. Asking what time it is at the present time. Slightly improved appetite. Denies chest pain or shortness of breath. 12/14: Afebrile. Agitated overnight. Found out overnight drinks significant "Filipino saki" alcohol daily. CIWA protocol initiated. Thiamine multivitamin and folate started. Insulin drip currently on schedule Levemir twice a day. Denies chest pain. Confused. Subjective 12/15: Afebrile. Intubated yesterday due to altered mental status/likely EtOH withdrawals. This a.m., noted post decrease to 84-57 on heparin drip. RN states melanotic stool. Hemoglobin appears stable however will check serial hemoglobin. Hemoccult still pending. Will make nothing by mouth except for meds. Continue aspirin and Plavix in light of non-STEMI. 12/16 Patient is sedated with Diprivan, Fentanyl and intubated. For EGD today. Afebrile. 12/17 No events overnight. Remains intubated and sedated with Diprivan and Fentanyl. 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, grade 1 varices s/p epi erosive gastritis and erosive duodenitis without bleeding 12/18 Patient extubated yesterday, tolerating well. Remains tachycardic. Hb 10.5 platelet count 57. Objective Vital Signs Date Time Temp Pulse Resp B/P Pulse Ox O2 Delivery O2 Flow Rate FiO2 12/18/16 08:33 92 Nasal Cannula 3.00 12/18/16 06:00 109 16 121/59 12/18/16 04:00 98.9 12/17/16 08:45 35 Intake and Output 12/17/16 12/17/16 12/18/16 08:00 16:00 00:00 Intake Total 342 ml 283 ml 1388 ml Output Total 400 ml 2050 ml 550 ml Balance -58 ml -1767 ml 838 ml Result Diagram: 12/18/16 0335 12/18/16 0335 Imaging Last Impressions Chest X-Ray 12/16/16 0600 Signed Impressions: Service Date/Time: Friday, December 16, 2016 05:01 - CONCLUSION: 1. Cardiomegaly with increased pulmonary vascularity. 2. Support lines and tubes are unchanged. Deshawn Daughrety MD Abdomen/Pelvis CT 12/15/16 0000 Signed Impressions: Service Date/Time: Thursday, December 15, 2016 17:17 - CONCLUSION: 1. Cirrhotic appearing liver with mild ascites. There is also splenomegaly which likely secondary to portal hypertension. 2. Calcified gallstones. The gallbladder is distended. This appearance is unchanged from the prior exam. 3. 5 mm nonobstructing left renal stone. 4. The cause of the patient's bloody stool is not identified on this noncontrast CT examination. Mucosal lesions may not be seen on CT. 5. Bibasilar areas of consolidation or atelectasis. Kennedy Chatman MD Head CT 12/14/16 0000 Signed Impressions: Service Date/Time: Wednesday, December 14, 2016 09:12 - CONCLUSION: No acute disease. Omar Holland MD Renal Ultrasound 12/13/16 0000 Signed Impressions: Service Date/Time: Tuesday, December 13, 2016 18:07 - CONCLUSION: 1. The kidneys are grossly unremarkable in appearance with no definite evidence of hydronephrosis. There was suboptimal visualization of the left kidney. 2. Manrique catheter in the bladder. 3. Small amount of free fluid. Celio Melton MD Objective Remarks GEN: 66-year-old obese male, on [place] SKIN: Warm and dry. No rash HEAD: Atraumatic. Normocephalic. EYES: Pupils equal and round 4 mm reactive to light and accommodation bilaterally.. ENT: No nasal bleeding or discharge. NECK: Trachea midline. No JVD. CARDIOVASCULAR: Distant. tachycardic. S1, S2 no S4 without murmur or clicks, gallops or rubs RESPIRATORY: Diminished breath sounds due to body habitus. No wheezes rales or rhonchi. GASTROINTESTINAL: Abdomen soft, non-tender, obese. Hypoactive bowel sounds appreciated MUSCULOSKELETAL: Extremities without significant peripheral edema. Chronic venous stasis bilateral lower extremity's. NEUROLOGICAL: Awake alert, follows commands, No FND Date of Insertion: Dec 12, 2016 Line: Central Venous Catheter Side: Right Location: Subclavian A/P Assessment and Plan NEURO/PSYCH: Acute metabolic encephalopathy Alcohol abuse, dependence Continue [facility] protocol for alcohol withdrawal Thiamine, folate and multivitamin CT head 03/16 revealed no acute intracranial findings Acetaminophen if necessary for fever/pain RESP: Acute respiratory failure secondary to AMS Extubated 12/17 now on [place] Ventilator bundle DuoNeb every 6 hours scheduled with albuterol every 2 hours when necessary CV: Troponin elevation/NSTEMI Lactic acidosis History of hypertension History of dyslipidemia Grade 1 diastolic dysfunction Monitor HR and BP keep MAP>65mmHg. Lactic acid 1.[address] Burnett. IV heparin discontinued secondary to heme positive stools On aspirin 81 mg daily and metoprolol 12.5 mg every 8. Holding Plavix in lieu of worsening thrombocytopenia discussed with cards -Dr. Burnett Hold ASA until plt count>80 -Troponin trending downward -2d echo 12/13 revealed EF 55-60%. LVH. Grade 1 diastolic dysfunction. GI: Liver cirrhosis? Elevated AST likely cardiac related s/p EGD 12/16 :showed esophagus stricture at GE junction, grade 1 varices s/p epi injection, erosive gastritis and erosive duodenitis without bleeding Protonix IV twice a day for GI prophylaxis Diet per GI : Acute kidney failure - resolved Hypernatremia Monitor renal function, I/O's, electrolytes replacement as needed. s/p Diuresis with Bumex 1mg x1. Negative urine eosinophils. Prerenal indices. Negative hydronephrosis on renal ultrasound. ID: Severe sepsis source unclear Received IV vancomycin and Zosyn in the ED. Continue Zosyn monitor for signs of infections ( Fever, WBC) 12/12 BC: No growth 12/14: Sputum cx: normal resp jared 12/15 C-diff PCR negative HEME: Macrocytosis Leukocytosis- Resolved Thrombocytopenia Monitor CBC, CMP, coags. Fibrinogen level 270 on 12/15 HIT panel: Negative ENDO/FEN: DM Hypernatremia On SSI ( high scale) with accuchecks PROPH: - Bilateral lower extremity SCDs. IV Protonix twice a day. IV heparin held in light of possible lower GI bleed and Hemoccult positive LINES: - Right subclavian central line placed 12/12 Level II Ivory Benavides MD Dec 18, 2016 12:43
--- NOTE | 2016-12-18 14:39 | HHI.GIFU ---
Subjective Remarks Extubated today. No active bleeding. No n/v. No abdominal pain. Nurse reports that his blood sugars have been elevated. Objective Vitals I&O Vital Signs Date Time Temp Pulse Resp B/P Pulse Ox O2 Delivery O2 Flow Rate FiO2 12/18/16 08:33 92 Nasal Cannula 3.00 12/18/16 06:00 109 16 121/59 92 12/18/16 06:00 109 12/18/16 05:00 112 14 130/65 100 12/18/16 04:00 12/18/16 04:00 104 12/18/16 04:00 104 21 117/56 93 12/18/16 04:00 98.9 104 16 117/56 93 12/18/16 03:00 102 19 114/56 92 12/18/16 02:00 103 12/18/16 02:00 103 16 119/55 93 12/18/16 02:00 90 Nasal Cannula 3.00 12/18/16 01:00 103 18 119/56 92 12/18/16 00:00 97 14 122/59 96 12/18/16 00:00 12/18/16 00:00 97 12/18/16 00:00 97 14 122/59 96 12/18/16 00:00 99.6 97 16 122/59 96 12/17/16 23:00 104 17 120/56 94 12/17/16 22:00 117 12/17/16 22:00 117 16 138/64 93 12/17/16 21:00 121 12 140/70 97 12/17/16 20:20 95 Nasal Cannula 2.00 12/17/16 20:07 115 16 131/59 94 12/17/16 20:00 99.3 116 16 131/59 93 12/17/16 20:00 93 Nasal Cannula 2.00 12/17/16 20:00 12/17/16 20:00 116 18 93 12/17/16 20:00 116 12/17/16 18:00 120 12/17/16 16:00 99.2 123 17 161/80 99 12/17/16 16:00 123 12/17/16 16:00 123 161/80 12/17/16 16:00 100 Nasal Cannula 2.00 I/O 12/17/16 12/17/16 12/17/16 12/18/16 12/18/165/17 07:00 15:00 23:00 07:00 15:00 23:00 Intake Total 342 ml 283 ml 1388 ml 736 ml Output Total 400 ml 2050 ml 550 ml 500 ml Balance -58 ml -1767 ml 838 ml 236 ml Intake Oral 1320 ml 600 ml IV Total 342 ml 283 ml 68 ml 136 ml Output Urine Total 400 ml 2050 ml 550 ml 500 ml # Bowel Movements 0 0 0 Laboratory Laboratory Tests Test 12/18/16 03:35 White Blood Count 6.4 Red Blood Count 3.33 Hemoglobin 10.5 Hematocrit 31.6 Mean Corpuscular Volume 94.8 Mean Corpuscular Hemoglobin 31.6 Mean Corpuscular Hemoglobin 33.3 Concent Red Cell Distribution Width 13.3 Platelet Count 57 Mean Platelet Volume 9.1 Neutrophils (%) (Auto) 67.6 Lymphocytes (%) (Auto) 16.4 Monocytes (%) (Auto) 12.7 Eosinophils (%) (Auto) 2.9 Basophils (%) (Auto) 0.4 Neutrophils # (Auto) 4.3 Lymphocytes # (Auto) 1.0 Monocytes # (Auto) 0.8 Eosinophils # (Auto) 0.2 Basophils # (Auto) 0.0 CBC Comment AUTO DIFF Differential Total Cells 100 Counted Neutrophils % (Manual) 73 Band Neutrophils % 14 Lymphocytes % 5 Monocytes % 5 Eosinophils % 2 Basophils % 1 Neutrophils # (Manual) 5.6 Differential Comment FINAL DIFF MANUAL Platelet Estimate LOW Platelet Morphology Comment NORMAL Red Cell Morphology Comment NORMAL Activated Partial 29.2 Thromboplast Time Sodium Level 146 Potassium Level 3.3 Chloride Level 110 Carbon Dioxide Level 27.5 Anion Gap 9 Blood Urea Nitrogen 17 Creatinine 0.92 Estimat Glomerular Filtration 83 Rate Random Glucose 221 Calcium Level 7.9 Phosphorus Level 2.1 Magnesium Level 1.9 Date/Time Procedure Status Source Growth 12/15/16 05:15 Stool Occult Blood (LUIS) - Final Complete Stool Stool HEMOCCULT POSITIVE 12/14/16 16:00 Gram Stain - Final Complete Sputum Endotracheal 12/14/16 16:00 Sputum Culture - Final Complete Sputum Endotracheal MODERATE GROWTH NORMAL RESPIRATORY SUNDEEP Physical Exam HEENT: Normocephalic CHEST: Resp. even/unlabored, diminished bases. CARDIAC: RRR ABDOMEN: Soft, obese, nondistended, nontender; no hepatosplenomegaly; bowel sounds are present in all four quadrants. EXTREMITIES: Generalized edema. SKIN: Spotted rash to neck/ant chest [employer]: Lightly sedated on the ventilator, follows commands Assessment and Plan Plan ASSESSMENT - Melena. Abdomen/Pelvis CT (12/15/16)-----> 1. Cirrhotic appearing liver with mild ascites. There is also splenomegaly which likely secondary to portal hypertension. 2. Calcified gallstones. The gallbladder is distended. This appearance is unchanged from the prior exam. 3. 5 mm nonobstructing left renal stone. 4. The cause of the patient's bloody stool is not identified on this noncontrast CT examination. Mucosal lesions may not be seen on CT. 5. Bibasilar areas of consolidation or atelectasis. 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 Bleeding started when the scope was pushed through the stricture. Injection of 4cc epi provided control of bleeding OG tube removed. Stomach: erosive gastritis without bleeding. Duodenum: erosive duodenitis without bleeding. No signs of active bleeding. HH stable 10.5/31.6. No active bleeding. Denies n/v, pain. PPI - Anemia secondary to acute blood loss. HH stable 10.5/31.6. PPI - Thrombocytopenia. Plt 57. - Acute metabolic encephalopathy. Ammonia 16. Improved. - Liver cirrhosis. CT as above with cirrhotic appearing liver, ascites, splenomegaly likely secondary to portal hypertension. Varices on EGD. - ETOH abuse. Thiamine, MVI. ETOH cessation. - Sepsis. BCx 4 days. Sputum with moderate growth normal respiratory sundeep. Zosyn. - ARF, resolved. - Elevated troponin, NSTEMI. Cardiology following, was planning for ischemic evaluation, but on hold secondary to thrombocyotpenia and melena. Plavix stopped, if further drop in Plts, then the plan is to stop ASA. Hold cath as they are not able to give further anti-coagulants/anti- platelets during procedure, con't medical management - DKA (resolved) HTN, Hyperlipidemia, DM, DKA - noncompliant, per primary. Plan: - Heart healthy diabetic diet per attending - Cont. PPI - Monitor HH - Complete ETOH cessation - GI will sign off, please reconsult for active bleeding or if needed - Pt seen and examined by Dr. Randle and myself and this note is written on his behalf Meena Tovar Dec 18, 2016 14:39
[2016-12-18 17:31] LABS: POTASSIUM 3.7 MEQ/L (3.5-5.1)
[2016-12-19] VITALS (14 sets, daily range): BP systolic 135–168; BP diastolic 63–80; PULSE 71–104; RESP 20–30; TEMP 98–99; O2SAT 92–98
[2016-12-19] MEDS: RESP: ALBUTEROL 2.5 MG/IPRATROPIUM 0.5 MG NEB (SCH) NEB ×6 (03:43→23:31)
--- NOTE | 2016-12-19 04:18 | RADRPT ---
EXAM DATE/TIME: 12/19/2016 03:24 [place] COMPARISON: CHEST SINGLE AP, December 16, 2016, 5:01. INDICATIONS : Shortness of breath, possible pulmonary disease. MEDICAL HISTORY : Diabetes mellitus type II. Cirrhosis. Hyperthyroidism. Renal stones SURGICAL HISTORY : Renal stone removal ENCOUNTER: Subsequent ACUITY: 1 week PAIN SCORE: Non-responsive. LOCATION: Bilateral chest FINDINGS: A single view of the chest demonstrates right basilar density. Right subclavian central line stable i n position.. Osseous structures are intact. CONCLUSION: 1. Right basilar density again seen. Deshawn Daugherty MD on December 19, 2016 at 4:15 Board Certified Radiologist. This report was verified electronically.
[2016-12-19] MEDS: INSULIN NovoLIN REGULAR SUPPLEMENTAL SCALE SQ SCH ×5 (04:20→19:50)
[2016-12-19] MEDS: PIPERACIL-TAZO 4.5 GM PREMIX 100 ML IV SCH ×3 (04:21→19:43)
[2016-12-19 05:51] LABS: AUTOMATED NEUTROPHIL # 3.1 TH/MM3 (1.8-7.7); BASOPHIL % 0.6 % (0.0-2.0); EOSINOPHIL # 0.3 TH/MM3 (0-0.4); EOSINOPHIL % 5.4 % (0.0-4.0); HEMATOCRIT 32.7 % (39.0-51.0); LYMPH % 22.6 % (9.0-44.0); LYMPHOCYTE # 1.2 TH/MM3 (1.0-4.8); MEAN CELL VOLUME 93.8 FL (80.0-100.0); MEAN CORPUSCULAR HEMOGLOBIN 32.2 PG (27.0-34.0); MEAN CORPUSCULAR HGB CONC 34.4 % (32.0-36.0); MONO % 14.8 % (0.0-8.0); NEUT % 56.6 % (16.0-70.0); PLATELET COUNT 71 TH/MM3 (150-450); RED BLOOD COUNT 3.48 MIL/MM3 (4.50-5.90); RED CELL DISTRIBUTION WIDTH 13.5 % (11.6-17.2); WHITE BLOOD COUNT 5.5 TH/MM3 (4.0-11.0)
[2016-12-19 05:55] LABS: HEMO FLAGS AUTO DIFF
[2016-12-19] MEDS: METOPROLOL TARTRATE 25 MG TAB PO SCH ×3 (06:00→21:40)
[2016-12-19] MEDS: ARTIFICIAL TEARS OPTH SOLN 15 ML BTL EACH EYE SCH ×3 (06:00→21:40)
[2016-12-19 06:12] LABS: ANION GAP 7 MEQ/L (5-15); AST (GOT) 34 U/L (15-37); BICARBONATE 29.2 MEQ/L (21.0-32.0); BLOOD UREA NITROGEN 13 MG/DL (7-18); CHLORIDE 109 MEQ/L (98-107); GLOMERULAR FILTRATION RATE 94 ML/MIN (>89); POTASSIUM 3.3 MEQ/L (3.5-5.1); SODIUM (NA) 145 MEQ/L (136-145)
[2016-12-19 06:13] LABS: APTT (PATIENT) 27.8 SEC (24.3-30.1)
[2016-12-19 06:15] LABS: ALKALINE PHOSPHATASE 138 U/L (45-117); ALT (GPT) 29 U/L (12-78); TOTAL BILIRUBIN ADULT 0.7 MG/DL (0.2-1.0)
[2016-12-19] MEDS: CHLORHEXIDINE 0.12% (ORAL KIT) 15 ML CUP MT SCH ×2 (08:00→20:00)
[2016-12-19 08:20] LABS: SCAN/DIFF AUTO DIFF CONFIRMED
[2016-12-19] MEDS: MULTIVITAMIN TAB PO SCH (09:57)
[2016-12-19] MEDS: FOLIC ACID 1 MG TAB PO SCH (09:57)
[2016-12-19] MEDS: PANTOPRAZOLE SODIUM 40 MG VIAL IV PUSH SCH ×2 (09:57→22:31)
[2016-12-19] MEDS: THIAMINE HCL 100 MG TAB PO SCH (09:57)
--- NOTE | 2016-12-19 11:44 | HHI.CCPN ---
Subjective Remarks/Hospital Course Patient is a 66 yo white male with past medical history of type 2 diabetes, hypertension, dyslipidemia who was brought into the emergency department for evaluation of severe weakness and lethargy. Patient apparently has been noncompliant with his insulin as per EMS and multiple of empty bottles of Mountain Dew was found at his home. He was found to be in feces all around his body. Apparently patient fell and was not able to get off the floor for several hours. Lab work revealed leukocytosis at 16.2., VBG showed metabolic acidosis with pH of 7.24. HCO3 of 15, Potassium is low at 2.6. Blood glucose was extremely elevated at 1717, serum acetone was positive, I advised ED to replace atleast 160 meq potassium as there is risk of further hypokalemia with insulin infusion. Lactic acid is elevated at 6.9. Creatinine 2.69. CPK 2392. Pt empirically cover with vancomycin and zosyn. I evaluated the patient in the emergency department and then again in the ICU. He is critically ill, tremulous. Extremely dehydrated, tachycardic. Additional 2 L fluid bolus was ordered. DKA protocol initiated, after repeat CMP. Panculture sent. I have also placed a right subclavian central line to facilitate, faster potassium replacement and also for fluid resuscitation 12/13: Afebrile. Currently resting in bed. Asking what time it is at the present time. Slightly improved appetite. Denies chest pain or shortness of breath. 12/14: Afebrile. Agitated overnight. Found out overnight drinks significant "Mexican saki" alcohol daily. CIWA protocol initiated. Thiamine multivitamin and folate started. Insulin drip currently on schedule Levemir twice a day. Denies chest pain. Confused. Subjective 12/15: Afebrile. Intubated yesterday due to altered mental status/likely EtOH withdrawals. This a.m., noted post decrease to 84-57 on heparin drip. RN states melanotic stool. Hemoglobin appears stable however will check serial hemoglobin. Hemoccult still pending. Will make nothing by mouth except for meds. Continue aspirin and Plavix in light of non-STEMI. 12/16 Patient is sedated with Diprivan, Fentanyl and intubated. For EGD today. Afebrile. 12/17 No events overnight. Remains intubated and sedated with Diprivan and Fentanyl. 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, grade 1 varices s/p epi erosive gastritis and erosive duodenitis without bleeding 12/18 Patient extubated yesterday, tolerating well. Remains tachycardic. Hb 10.5 platelet count 57. 7/6: Large amount of melanotic stools noted today. Tachycardic but not hypotensive. Hb repeat ordered, GI re consulted Objective Vital Signs Date Time Temp Pulse Resp B/P Pulse Ox O2 Delivery O2 Flow Rate FiO2 12/19/16 09:09 97 High Flow Nasal Cannula 2.00 12/19/16 06:00 103 12/19/16 04:00 98.4 22 153/73 12/17/16 08:45 35 Intake and Output 12/18/16 12/18/16 12/19/16 08:00 16:00 00:00 Intake Total 736 ml 750 ml 550 ml Output Total 500 ml 575 ml 475 ml Balance 236 ml 175 ml 75 ml Result Diagram: 12/19/16 0430 12/19/16 0430 Imaging Last Impressions Chest X-Ray 12/16/16 0600 Signed Impressions: Service Date/Time: Friday, December 16, 2016 05:01 - CONCLUSION: 1. Cardiomegaly with increased pulmonary vascularity. 2. Support lines and tubes are unchanged. Deshawn Daugherty MD Abdomen/Pelvis CT 12/15/16 0000 Signed Impressions: Service Date/Time: Thursday, December 15, 2016 17:17 - CONCLUSION: 1. Cirrhotic appearing liver with mild ascites. There is also splenomegaly which likely secondary to portal hypertension. 2. Calcified gallstones. The gallbladder is distended. This appearance is unchanged from the prior exam. 3. 5 mm nonobstructing left renal stone. 4. The cause of the patient's bloody stool is not identified on this noncontrast CT examination. Mucosal lesions may not be seen on CT. 5. Bibasilar areas of consolidation or atelectasis. Kennedy Chatman MD Head CT 12/14/16 0000 Signed Impressions: Service Date/Time: Wednesday, December 14, 2016 09:12 - CONCLUSION: No acute disease. Omar Holland MD Renal Ultrasound 12/13/16 0000 Signed Impressions: Service Date/Time: Tuesday, December 13, 2016 18:07 - CONCLUSION: 1. The kidneys are grossly unremarkable in appearance with no definite evidence of hydronephrosis. There was suboptimal visualization of the left kidney. 2. Manrique catheter in the bladder. 3. Small amount of free fluid. Celio Melton MD Objective Remarks GEN: 66-year-old obese male, on [place] SKIN: Warm and dry. No rash HEAD: Atraumatic. Normocephalic. EYES: Pupils equal and round 4 mm reactive to light and accommodation bilaterally.. ENT: No nasal bleeding or discharge. NECK: Trachea midline. No JVD. CARDIOVASCULAR: Distant. tachycardic. S1, S2 no S4 without murmur or clicks, gallops or rubs RESPIRATORY: Diminished breath sounds due to body habitus. No wheezes rales or rhonchi. GASTROINTESTINAL: Abdomen soft, non-tender, obese. Hypoactive bowel sounds appreciated. Large amount of melanotic stools MUSCULOSKELETAL: Extremities without significant peripheral edema. Chronic venous stasis bilateral lower extremity's. NEUROLOGICAL: Awake alert, follows commands, No FND Urinary Catheter: Yes Assessment to: Continue Date of Insertion: Dec 12, 2016 Line: Central Venous Catheter Side: Right Location: Subclavian A/P Assessment and Plan NEURO/PSYCH: Acute metabolic encephalopathy Alcohol abuse, dependence Continue [facility] protocol for alcohol withdrawal Thiamine, folate and multivitamin CT head on admission revealed no acute intracranial findings Acetaminophen if necessary for fever/pain RESP: Acute respiratory failure secondary to AMS Extubated 12/17 now on [place] DuoNeb every 6 hours scheduled with albuterol every 2 hours when necessary CV: Troponin elevation/NSTEMI Lactic acidosis History of hypertension History of dyslipidemia Grade 1 diastolic dysfunction Monitor HR and BP keep MAP>65mmHg. Lactic acid 1.[address] Burnett. IV heparin discontinued secondary to heme positive stools Metoprolol 12.5 mg every 8. Holding Plavix in lieu of worsening thrombocytopenia discussed with cards -Dr. Burnett Hold ASA until plt count>80 Troponin trending downward 2d echo 12/13 revealed EF 55-60%. LVH. Grade 1 diastolic dysfunction. GI: GIB Esophagus stricture at GE junction Grade 1 varices s/p epi injection Erosive gastritis and erosive duodenitis Probable Liver cirrhosis Elevated AST s/p EGD 12/16 :showed esophagus stricture at GE junction, grade 1 varices s/p epi injection, erosive gastritis and erosive duodenitis without bleeding Re consult GI secondary to large amount of melanotic stools Protonix IV twice a day for GI prophylaxis Diet per GI-NPO : Acute kidney failure - resolved Hypernatremia Monitor renal function, I/O's, electrolytes replacement as needed. s/p Diuresis with Bumex 1mg x1. Negative urine eosinophils. Prerenal indices. Negative hydronephrosis on renal ultrasound. ID: Severe sepsis source unclear Received IV vancomycin and Zosyn in the ED. Continue Zosyn monitor for signs of infections ( Fever, WBC) 12/12 BC: No growth 12/14: Sputum cx: normal resp jared 12/15 C-diff PCR negative HEME: Macrocytosis Leukocytosis- Resolved Thrombocytopenia Monitor CBC, CMP, coags. Fibrinogen level 270 on 12/15 Check Hb today. Give 1U platelet, check INR HIT panel: Negative ENDO/FEN: DM Hypernatremia On SSI ( high scale) with accuchecks PROPH: - Bilateral lower extremity SCDs. IV Protonix twice a day. IV heparin held in light of possible lower GI bleed and Hemoccult positive LINES: - Right subclavian central line placed 12/12 Level III Ivory Benavides MD Dec 19, 2016 11:44
--- NOTE | 2016-12-19 12:54 | HHI.GIFU ---
Subjective Remarks Pt had several melanotic stools today. No n/v. No abdominal pain. Does complain that solids do occasionally get caught in mid esophagus. Objective Vitals I&O Vital Signs Date Time Temp Pulse Resp B/P Pulse Ox O2 Delivery O2 Flow Rate FiO2 12/19/16 09:09 97 High Flow Nasal Cannula 2.00 12/19/16 06:00 103 12/19/16 04:00 71 12/19/16 04:00 103 12/19/16 04:00 98.4 104 22 153/73 96 12/19/16 02:00 91 12/19/16 00:00 98.6 91 20 135/63 95 12/19/16 00:00 91 12/18/16 22:00 102 12/18/16 20:21 97 Nasal Cannula 2.00 12/18/16 20:00 12/18/16 20:00 97.9 105 20 135/68 95 12/18/16 20:00 102 12/18/16 19:00 97 Nasal Cannula 3.00 12/18/16 18:00 102 12/18/16 18:00 102 16 135/68 95 12/18/16 17:00 100 15 145/67 97 12/18/16 16:00 98.9 103 20 133/67 95 12/18/16 16:00 103 12/18/16 16:00 12/18/16 15:00 94 14 120/65 93 12/18/16 14:01 108 26 132/62 92 12/18/16 14:00 107 23 93 12/18/16 14:00 107 12/18/16 13:00 117 17 133/70 92 I/O 12/18/16 12/18/16 12/18/16 12/19/16 12/19/16 12/19/16 07:00 15:00 23:00 07:00 15:00 23:00 Intake Total 736 ml 750 ml 550 ml 405 ml Output Total 500 ml 575 ml 475 ml 200 ml Balance 236 ml 175 ml 75 ml 205 ml Intake Oral 600 ml 450 ml 325 ml 250 ml IV Total 136 ml 300 ml 225 ml 155 ml Output Urine Total 500 ml 575 ml 475 ml 200 ml # Voids 2 # Bowel Movements 0 2 Laboratory Laboratory Tests Test 12/18/16 12/19/16 16:30 04:30 Potassium Level 3.7 3.3 Phosphorus Level 2.1 White Blood Count 5.5 Red Blood Count 3.48 Hemoglobin 11.2 Hematocrit 32.7 Mean Corpuscular Volume 93.8 Mean Corpuscular Hemoglobin 32.2 Mean Corpuscular Hemoglobin 34.4 Concent Red Cell Distribution Width 13.5 Platelet Count 71 Mean Platelet Volume 9.1 Neutrophils (%) (Auto) 56.6 Lymphocytes (%) (Auto) 22.6 Monocytes (%) (Auto) 14.8 Eosinophils (%) (Auto) 5.4 Basophils (%) (Auto) 0.6 Neutrophils # (Auto) 3.1 Lymphocytes # (Auto) 1.2 Monocytes # (Auto) 0.8 Eosinophils # (Auto) 0.3 Basophils # (Auto) 0.0 CBC Comment AUTO DIFF Differential Comment AUTO DIFF CONFIRMED Activated Partial 27.8 Thromboplast Time Sodium Level 145 Chloride Level 109 Carbon Dioxide Level 29.2 Anion Gap 7 Blood Urea Nitrogen 13 Creatinine 0.82 Estimat Glomerular Filtration 94 Rate Random Glucose 195 Calcium Level 8.2 Total Bilirubin 0.7 Aspartate Amino Transf 34 (AST/SGOT) Alanine Aminotransferase 29 (ALT/SGPT) Alkaline Phosphatase 138 Total Protein 6.2 Albumin 2.3 Date/Time Procedure Status Source Growth 12/15/16 05:15 Stool Occult Blood (LUIS) - Final Complete Stool Stool HEMOCCULT POSITIVE 12/14/16 16:00 Gram Stain - Final Complete Sputum Endotracheal 12/14/16 16:00 Sputum Culture - Final Complete Sputum Endotracheal MODERATE GROWTH NORMAL RESPIRATORY JARED Imaging Last Impressions Chest X-Ray 12/19/16 0600 Signed Impressions: Service Date/Time: December 03:24 - CONCLUSION: 1. Right basilar density again seen. Deshawn Daugherty MD Abdomen/Pelvis CT 12/15/16 0000 Signed Impressions: Service Date/Time: Thursday, December 15, 2016 17:17 - CONCLUSION: 1. Cirrhotic appearing liver with mild ascites. There is also splenomegaly which likely secondary to portal hypertension. 2. Calcified gallstones. The gallbladder is distended. This appearance is unchanged from the prior exam. 3. 5 mm nonobstructing left renal stone. 4. The cause of the patient's bloody stool is not identified on this noncontrast CT examination. Mucosal lesions may not be seen on CT. 5. Bibasilar areas of consolidation or atelectasis. Kennedy Chatman MD Head CT 12/14/16 0000 Signed Impressions: Service Date/Time: Wednesday, December 14, 2016 09:12 - CONCLUSION: No acute disease. Omar Holladn MD Renal Ultrasound 12/13/16 0000 Signed Impressions: Service Date/Time: Tuesday, December 13, 2016 18:07 - CONCLUSION: 1. The kidneys are grossly unremarkable in appearance with no definite evidence of hydronephrosis. There was suboptimal visualization of the left kidney. 2. Manrique catheter in the bladder. 3. Small amount of free fluid. Celio Melton MD Physical Exam HEENT: Normocephalic CHEST: Resp. even/unlabored, diminished bases. CARDIAC: ST ABDOMEN: Soft, obese, nondistended, nontender; no hepatosplenomegaly; bowel sounds are present in all four quadrants. EXTREMITIES: Generalized edema. SKIN: Spotted rash to neck/ant chest [employer]: Lethargic, oriented to self and place. Assessment and Plan Plan ASSESSMENT - Melena. Abdomen/Pelvis CT (12/15/16)-----> 1. Cirrhotic appearing liver with mild ascites. There is also splenomegaly which likely secondary to portal hypertension. 2. Calcified gallstones. The gallbladder is distended. This appearance is unchanged from the prior exam. 3. 5 mm nonobstructing left renal stone. 4. The cause of the patient's bloody stool is not identified on this noncontrast CT examination. Mucosal lesions may not be seen on CT. 5. Bibasilar areas of consolidation or atelectasis. 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 Bleeding started when the scope was pushed through the stricture. Injection of 4cc epi provided control of bleeding OG tube removed. Stomach: erosive gastritis without bleeding. Duodenum: erosive duodenitis without bleeding. No n/v, no abdominal pain. Has had several melanotic stools today. HH this am was 11.2/32.7, Rpt. is pending. PPI with bid dosing. Will plan for repeat EGD, possible dilatation in am (has had diet today). PPI - Anemia secondary to acute blood loss. HH stable 11.2/32.7, but has had several melanotic stools and rpt HH is pending. PPI - Esophageal stricture at GE junction. PPI. Rpt. EGD tomorrow, possible dilatation - Thrombocytopenia. Plt 71 - Acute metabolic encephalopathy. Ammonia 16. Improved. Lethargic, but oriented to place and person. - Liver cirrhosis. CT as above with cirrhotic appearing liver, ascites, splenomegaly likely secondary to portal hypertension. Varices on EGD. - ETOH abuse. Thiamine, MVI. ETOH cessation. - Sepsis. BCx no growth 5 days. Sputum with moderate growth normal respiratory jared. Zosyn. - ARF, resolved. - Elevated troponin, NSTEMI. Cardiology following, was planning for ischemic evaluation, but on hold secondary to thrombocyotpenia and melena. Plavix stopped, if further drop in Plts, then the plan is to stop ASA. Hold cath as they are not able to give further anti-coagulants/anti- platelets during procedure, con't medical management - DKA (resolved) HTN, Hyperlipidemia, DM, DKA - noncompliant, per primary. Plan: - Plan for egd, possible dilatation in am - Obtain consents - Clear liquids - NPO after MN - Await repeat HH - Cont. PPI with BID dosing - CBC, CMP in am - Complete ETOH cessation - Supportive care - Further recommendations to follow based on results of above - Pt seen and examined by Dr. Randle and myself and this note is written on his behalf Meena Tovar Dec 19, 2016 12:54
[2016-12-19 14:17] LABS: INTERNATIONAL NORMALIZED RATIO 1.1 RATIO; PROTHROMBIN TIME - PATIENT 12.4 SEC (9.8-11.6)
[2016-12-19] MEDS: INSULIN DETEMIR 100 UNITS/ML VIAL SQ SCH ×2 (14:50→21:00)
[2016-12-19] MEDS: POTASSIUM CHLOR 40 MEQ PREMIX 100 ML IV PRN (15:16)
[2016-12-20] VITALS (22 sets, daily range): BP systolic 108–151; BP diastolic 55–83; PULSE 86–104; RESP 14–34; TEMP 97.6–98.8; O2SAT 94–100
[2016-12-20] MEDS: POTASSIUM PHOSPHATE INJ 30 MMOL in SODIUM CHLOR 0.9% 250 ML INJ 250 ML IV PRN (00:22)
[2016-12-20] MEDS: PIPERACIL-TAZO 4.5 GM PREMIX 100 ML IV SCH ×3 (03:16→17:58)
[2016-12-20] MEDS: RESP: ALBUTEROL 2.5 MG/IPRATROPIUM 0.5 MG NEB (SCH) NEB ×6 (03:28→23:42)
[2016-12-20] MEDS: CHLORHEXIDINE GLUCONATE 2 % 1 PACK (2 CLOTHS) TOP SCH (04:00)
[2016-12-20] MEDS: INSULIN NovoLIN REGULAR SUPPLEMENTAL SCALE SQ SCH ×6 (04:00→20:00)
[2016-12-20 06:50] LABS: INTERNATIONAL NORMALIZED RATIO 1.1 RATIO; PROTHROMBIN TIME - PATIENT 12.3 SEC (9.8-11.6)
[2016-12-20 06:53] LABS: APTT (PATIENT) 26.9 SEC (24.3-30.1)
[2016-12-20] MEDS: METOPROLOL TARTRATE 25 MG TAB PO SCH ×3 (07:00→20:44)
[2016-12-20] MEDS: ARTIFICIAL TEARS OPTH SOLN 15 ML BTL EACH EYE SCH ×3 (07:01→20:44)
[2016-12-20 07:09] LABS: ALT (GPT) 27 U/L (12-78); ANION GAP 8 MEQ/L (5-15); AST (GOT) 29 U/L (15-37); BICARBONATE 28.3 MEQ/L (21.0-32.0); BLOOD UREA NITROGEN 9 MG/DL (7-18); CHLORIDE 108 MEQ/L (98-107); GLOMERULAR FILTRATION RATE 111 ML/MIN (>89); POTASSIUM 3.5 MEQ/L (3.5-5.1); SODIUM (NA) 144 MEQ/L (136-145)
[2016-12-20 07:10] LABS: AUTOMATED NEUTROPHIL # 2.7 TH/MM3 (1.8-7.7); BASOPHIL % 0.7 % (0.0-2.0); EOSINOPHIL # 0.3 TH/MM3 (0-0.4); LYMPH % 22.2 % (9.0-44.0); LYMPHOCYTE # 1.1 TH/MM3 (1.0-4.8); MEAN CELL VOLUME 94.3 FL (80.0-100.0); MEAN CORPUSCULAR HEMOGLOBIN 31.4 PG (27.0-34.0); MEAN CORPUSCULAR HGB CONC 33.3 % (32.0-36.0); NEUT % 56.1 % (16.0-70.0); PLATELET COUNT 71 TH/MM3 (150-450); RED BLOOD COUNT 3.39 MIL/MM3 (4.50-5.90); RED CELL DISTRIBUTION WIDTH 13.4 % (11.6-17.2); WHITE BLOOD COUNT 4.8 TH/MM3 (4.0-11.0)
[2016-12-20 07:11] LABS: ALKALINE PHOSPHATASE 129 U/L (45-117); TOTAL BILIRUBIN ADULT 0.7 MG/DL (0.2-1.0)
[2016-12-20 07:24] LABS: HEMO FLAGS AUTO DIFF
[2016-12-20 08:00] LABS: PLATELET ESTIMATE SMEAR LOW (NORMAL); PLATELET MORPHOLOGY NORMAL (NORMAL)
[2016-12-20] MEDS: CHLORHEXIDINE 0.12% (ORAL KIT) 15 ML CUP MT SCH ×2 (08:00→21:52)
[2016-12-20 08:01] LABS: SCAN/DIFF AUTO DIFF CONFIRMED
[2016-12-20] MEDS: THIAMINE HCL 100 MG TAB PO SCH (09:00)
[2016-12-20] MEDS: MULTIVITAMIN TAB PO SCH (09:00)
--- NOTE | 2016-12-20 09:54 | HHI.CCPN ---
Subjective Remarks/Hospital Course Patient is a 66 yo white male with past medical history of type 2 diabetes, hypertension, dyslipidemia who was brought into the emergency department for evaluation of severe weakness and lethargy. Patient apparently has been noncompliant with his insulin as per EMS and multiple of empty bottles of Mountain Dew was found at his home. He was found to be in feces all around his body. Apparently patient fell and was not able to get off the floor for several hours. Lab work revealed leukocytosis at 16.2., VBG showed metabolic acidosis with pH of 7.24. HCO3 of 15, Potassium is low at 2.6. Blood glucose was extremely elevated at 1717, serum acetone was positive, I advised ED to replace atleast 160 meq potassium as there is risk of further hypokalemia with insulin infusion. Lactic acid is elevated at 6.9. Creatinine 2.69. CPK 2392. Pt empirically cover with vancomycin and zosyn. I evaluated the patient in the emergency department and then again in the ICU. He is critically ill, tremulous. Extremely dehydrated, tachycardic. Additional 2 L fluid bolus was ordered. DKA protocol initiated, after repeat CMP. Panculture sent. I have also placed a right subclavian central line to facilitate, faster potassium replacement and also for fluid resuscitation 12/13: Afebrile. Currently resting in bed. Asking what time it is at the present time. Slightly improved appetite. Denies chest pain or shortness of breath. 12/14: Afebrile. Agitated overnight. Found out overnight drinks significant "[place] saki" alcohol daily. CIWA protocol initiated. Thiamine multivitamin and folate started. Insulin drip currently on schedule Levemir twice a day. Denies chest pain. Confused. Subjective 12/15: Afebrile. Intubated yesterday due to altered mental status/likely EtOH withdrawals. This a.m., noted post decrease to 84-57 on heparin drip. RN states melanotic stool. Hemoglobin appears stable however will check serial hemoglobin. Hemoccult still pending. Will make nothing by mouth except for meds. Continue aspirin and Plavix in light of non-STEMI. 12/16 Patient is sedated with Diprivan, Fentanyl and intubated. For EGD today. Afebrile. 12/17 No events overnight. Remains intubated and sedated with Diprivan and Fentanyl. 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, grade 1 varices s/p epi erosive gastritis and erosive duodenitis without bleeding 12/18 Patient extubated yesterday, tolerating well. Remains tachycardic. Hb 10.5 platelet count 57. 7/6: Large amount of melanotic stools noted today. Tachycardic but not hypotensive. Hb repeat ordered, GI re consulted 12/20 No events overnight. For repeat EGD today. Afebrile. H/H stable. Objective Vital Signs Date Time Temp Pulse Resp B/P Pulse Ox O2 Delivery O2 Flow Rate FiO2 12/20/16 07:49 99 Nasal Cannula 2.00 12/20/16 06:00 93 12/20/16 04:00 97.6 20 127/65 12/17/16 08:45 35 Intake and Output 12/19/16 12/19/16 12/20/16 08:00 16:00 00:00 Intake Total 405 ml 759 ml 708 ml Output Total 200 ml 400 ml Balance 205 ml 359 ml 708 ml Result Diagram: 12/20/16 0600 12/20/16 06 Other Results Laboratory Tests Test 12/19/16 12/19/16 12/19/16 12/20/16 13:09 13:30 19:45 06:00 Blood Type O NEGATIVE O NEGATIVE Hemoglobin 11.0 GM/DL 10.6 GM/DL Prothrombin Time 12.4 SEC 12.3 SEC Prothromb Time International 1.1 RATIO 1.1 RATIO Ratio Blood Bank Comment Phosphorus Level 1.3 MG/DL White Blood Count 4.8 TH/MM3 Red Blood Count 3.39 MIL/MM3 Hematocrit 32.0 % Mean Corpuscular Volume 94.3 FL Mean Corpuscular Hemoglobin 31.4 PG Mean Corpuscular Hemoglobin 33.3 % Concent Red Cell Distribution Width 13.4 % Platelet Count 71 TH/MM3 Mean Platelet Volume 8.9 FL Neutrophils (%) (Auto) 56.1 % Lymphocytes (%) (Auto) 22.2 % Monocytes (%) (Auto) 15.0 % Eosinophils (%) (Auto) 6.0 % Basophils (%) (Auto) 0.7 % Neutrophils # (Auto) 2.7 TH/MM3 Lymphocytes # (Auto) 1.1 TH/MM3 Monocytes # (Auto) 0.7 TH/MM3 Eosinophils # (Auto) 0.3 TH/MM3 Basophils # (Auto) 0.0 TH/MM3 CBC Comment AUTO DIFF Differential Comment AUTO DIFF CONFIRMED Platelet Estimate LOW Platelet Morphology Comment NORMAL Activated Partial 26.9 SEC Thromboplast Time Sodium Level 144 MEQ/L Potassium Level 3.5 MEQ/L Chloride Level 108 MEQ/L Carbon Dioxide Level 28.3 MEQ/L Anion Gap 8 MEQ/L Blood Urea Nitrogen 9 MG/DL Creatinine 0.71 MG/DL Estimat Glomerular Filtration 111 ML/MIN Rate Random Glucose 148 MG/DL Calcium Level 8.2 MG/DL Total Bilirubin 0.7 MG/DL Aspartate Amino Transf 29 U/L (AST/SGOT) Alanine Aminotransferase 27 U/L (ALT/SGPT) Alkaline Phosphatase 129 U/L Total Protein 5.7 GM/DL Albumin 2.1 GM/DL Imaging Last Impressions Chest X-Ray 12/16/16 0600 Signed Impressions: Service Date/Time: Friday, December 16, 2016 05:01 - CONCLUSION: 1. Cardiomegaly with increased pulmonary vascularity. 2. Support lines and tubes are unchanged. Deshawn Daugherty MD Abdomen/Pelvis CT 12/15/16 0000 Signed Impressions: Service Date/Time: Thursday, December 15, 2016 17:17 - CONCLUSION: 1. Cirrhotic appearing liver with mild ascites. There is also splenomegaly which likely secondary to portal hypertension. 2. Calcified gallstones. The gallbladder is distended. This appearance is unchanged from the prior exam. 3. 5 mm nonobstructing left renal stone. 4. The cause of the patient's bloody stool is not identified on this noncontrast CT examination. Mucosal lesions may not be seen on CT. 5. Bibasilar areas of consolidation or atelectasis. Kennedy Chatman MD Head CT 12/14/16 0000 Signed Impressions: Service Date/Time: Wednesday, December 14, 2016 09:12 - CONCLUSION: No acute disease. Omar Holland MD Renal Ultrasound 12/13/16 0000 Signed Impressions: Service Date/Time: Tuesday, December 13, 2016 18:07 - CONCLUSION: 1. The kidneys are grossly unremarkable in appearance with no definite evidence of hydronephrosis. There was suboptimal visualization of the left kidney. 2. Manrique catheter in the bladder. 3. Small amount of free fluid. Celio Melton MD Objective Remarks GEN: 66-year-old obese male lying in bed in NAD SKIN: Warm and dry. No rash HEAD: Atraumatic. Normocephalic. EYES: Pupils equal and round 4 mm reactive to light and accommodation bilaterally.. ENT: No nasal bleeding or discharge. NECK: Trachea midline. No JVD. CARDIOVASCULAR: RRR nl S1, S2 no S4 without murmur or clicks, gallops or rubs RESPIRATORY: Diminished breath sounds due to body habitus. No wheezes rales or rhonchi. GASTROINTESTINAL: Abdomen soft, non-tender, obese. Hypoactive bowel sounds appreciated. Large amount of melanotic stools MUSCULOSKELETAL: Extremities without significant peripheral edema. Chronic venous stasis bilateral lower extremity's. NEUROLOGICAL: Awake alert, follows commands, Date of Insertion: Dec 12, 2016 Line: Central Venous Catheter Side: Right Location: Subclavian A/P Assessment and Plan NEURO/PSYCH: Acute metabolic encephalopathy Alcohol abuse, dependence Continue [facility] protocol for alcohol withdrawal Thiamine, folate and multivitamin CT head on admission revealed no acute intracranial findings Acetaminophen if necessary for fever/pain RESP: Acute respiratory failure secondary to AMS Extubated 12/17 Continue with oxygen keep sat >92% DuoNeb every 6 hours scheduled with albuterol every 2 hours when necessary CV: Troponin elevation/NSTEMI Lactic acidosis History of hypertension History of dyslipidemia Grade 1 diastolic dysfunction Monitor HR and BP keep MAP>65mmHg. Lactic acid 1.[address] Burnett. IV heparin discontinued secondary to heme positive stools Increase Metoprolol 25mg Q8. Holding Plavix in lieu of worsening thrombocytopenia discussed with cards -Dr. Burnett Hold ASA until plt count>80 Troponin trending downward 2d echo 12/13 revealed EF 55-60%. LVH. Grade 1 diastolic dysfunction. 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 Negative urine eosinophils. Prerenal indices. Negative hydronephrosis on renal ultrasound. ID: Received IV vancomycin and Zosyn in the ED. Continue Zosyn monitor for signs of infections ( Fever, WBC) 12/12 BC: No growth 12/14: Sputum cx: normal resp jared 12/15 C-diff PCR negative HEME: Macrocytosis Leukocytosis- Resolved Thrombocytopenia Monitor CBC, CMP, coags. HIT panel: Negative ENDO/FEN: DM Hypernatremia On SSI ( high scale) with accuchecks PROPH: - Bilateral lower extremity SCDs. IV Protonix twice a day. IV heparin held in light of possible lower GI bleed and Hemoccult positive LINES: - Right subclavian central line placed 12/12 Level II Chidi Thompson MD Dec 20, 2016 09:54
[2016-12-20] MEDS ORDERED: PROPOFOL 200 MG/20 ML AMP IV ONE (10:24)
--- NOTE | 2016-12-20 10:36 | HHI.GIFU ---
Subjective Remarks Immediate postop note: EGD with balloon dilatation of esophagus Indication: dysphagia, distal esophageal stricture Meds: MAC Findings: Esophagus: possible distal grade 1 varices. Distal stricture at GE junction. dilated to 13.5, 14.5, and 15.5mm with balloon Stomach: friable with BRB coming from suction angulo. Duodenum: normal Objective Vitals I&O Vital Signs Date Time Temp Pulse Resp B/P Pulse Ox O2 Delivery O2 Flow Rate FiO2 12/20/16 07:49 99 Nasal Cannula 2.00 12/20/16 07:42 100 Nasal Cannula 1.00 12/20/16 06:00 93 12/20/16 04:00 94 12/20/16 04:00 97.6 94 20 127/65 99 12/20/16 02:00 91 12/20/16 00:00 98.8 93 14 146/73 99 12/20/16 00:00 93 12/19/16 22:00 90 12/19/16 20:16 98 Nasal Cannula 2.00 12/19/16 20:00 92 12/19/16 20:00 99.0 92 22 161/74 96 12/19/16 20:00 96 Nasal Cannula 2.00 12/19/16 18:00 88 12/19/16 16:00 97 12/19/16 16:00 98.3 97 25 168/80 92 12/19/16 16:00 97 168/80 12/19/16 14:00 101 12/19/16 12:00 104 149/69 12/19/16 12:00 98.3 104 30 149/69 96 12/19/16 12:00 104 I/O 12/19/16 12/19/16 12/19/16 12/20/16 12/20/16 12/20/16 07:00 15:00 23:00 07:00 15:00 23:00 Intake Total 405 ml 759 ml 708 ml 381 ml Output Total 200 ml 400 ml 1000 ml Balance 205 ml 359 ml 708 ml -619 ml Intake Oral 250 ml 480 ml 360 ml IV Total 155 ml 279 ml 348 ml 381 ml Output Urine Total 200 ml 400 ml 1000 ml # Voids 2 # Bowel Movements 2 1 Laboratory Laboratory Tests Test 12/19/16 12/19/16 12/19/16 12/20/16 13:09 13:30 19:45 06:00 Blood Type O NEGATIVE O NEGATIVE Hemoglobin 11.0 10.6 Prothrombin Time 12.4 12.3 Prothromb Time International 1.1 1.1 Ratio Blood Bank Comment Phosphorus Level 1.3 White Blood Count 4.8 Red Blood Count 3.39 Hematocrit 32.0 Mean Corpuscular Volume 94.3 Mean Corpuscular Hemoglobin 31.4 Mean Corpuscular Hemoglobin 33.3 Concent Red Cell Distribution Width 13.4 Platelet Count 71 Mean Platelet Volume 8.9 Neutrophils (%) (Auto) 56.1 Lymphocytes (%) (Auto) 22.2 Monocytes (%) (Auto) 15.0 Eosinophils (%) (Auto) 6.0 Basophils (%) (Auto) 0.7 Neutrophils # (Auto) 2.7 Lymphocytes # (Auto) 1.1 Monocytes # (Auto) 0.7 Eosinophils # (Auto) 0.3 Basophils # (Auto) 0.0 CBC Comment AUTO DIFF Differential Comment AUTO DIFF CONFIRMED Platelet Estimate LOW Platelet Morphology Comment NORMAL Activated Partial 26.9 Thromboplast Time Sodium Level 144 Potassium Level 3.5 Chloride Level 108 Carbon Dioxide Level 28.3 Anion Gap 8 Blood Urea Nitrogen 9 Creatinine 0.71 Estimat Glomerular Filtration 111 Rate Random Glucose 148 Calcium Level 8.2 Total Bilirubin 0.7 Aspartate Amino Transf 29 (AST/SGOT) Alanine Aminotransferase 27 (ALT/SGPT) Alkaline Phosphatase 129 Total Protein 5.7 Albumin 2.1 Physical Exam HEENT: Normocephalic CHEST: Resp. even/unlabored, diminished bases. CARDIAC: ST ABDOMEN: Soft, obese, nondistended, nontender; no hepatosplenomegaly; bowel sounds are present in all four quadrants. EXTREMITIES: Generalized edema. SKIN: Spotted rash to neck/ant chest MANAGER STORY: Alert, oriented. Assessment and Plan Plan ASSESSMENT - Melena. Abdomen/Pelvis CT (12/15/16)-----> 1. Cirrhotic appearing liver with mild ascites. There is also splenomegaly which likely secondary to portal hypertension. 2. Calcified gallstones. The gallbladder is distended. This appearance is unchanged from the prior exam. 3. 5 mm nonobstructing left renal stone. 4. The cause of the patient's bloody stool is not identified on this noncontrast CT examination. Mucosal lesions may not be seen on CT. 5. Bibasilar areas of consolidation or atelectasis. 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 Bleeding started when the scope was pushed through the stricture. Injection of 4cc epi provided control of bleeding OG tube removed. Stomach: erosive gastritis without bleeding. Duodenum: erosive duodenitis without bleeding. No n/v, no abdominal pain. Has had several melanotic stools today. HH this am was 11.2/32.7, Rpt. is pending. PPI with bid dosing. Will plan for repeat EGD, possible dilatation in am (has had diet today). PPI - Anemia secondary to acute blood loss. HH stable 11.2/32.7, but has had several melanotic stools and rpt HH is pending. PPI - Esophageal stricture at GE junction. PPI. Rpt. EGD tomorrow, possible dilatation - Thrombocytopenia. Plt 71 - Acute metabolic encephalopathy. Ammonia 16. Improved. Lethargic, but oriented to place and person. - Liver cirrhosis. CT as above with cirrhotic appearing liver, ascites, splenomegaly likely secondary to portal hypertension. Varices on EGD. - ETOH abuse. Thiamine, MVI. ETOH cessation. - Sepsis. BCx no growth 5 days. Sputum with moderate growth normal respiratory jared. Zosyn. - ARF, resolved. - Elevated troponin, NSTEMI. Cardiology following, was planning for ischemic evaluation, but on hold secondary to thrombocyotpenia and melena. Plavix stopped, if further drop in Plts, then the plan is to stop ASA. Hold cath as they are not able to give further anti-coagulants/anti- platelets during procedure, con't medical management - DKA (resolved) HTN, Hyperlipidemia, DM, DKA - noncompliant, per primary. - EGD repeat on 12/20 for dysphagia and ? recurrent GI bleed showed friable mucosa. Stricture at GE junction. Dilated to 15.5mm with balloon. No apparent complication. Plan: - Clear liquids at lunch. If OK then advance to full liquid at supper and soft food tomorrow. - Follow H/H - Cont. PPI with BID dosing - CBC, CMP in am - Complete ETOH cessation - Supportive care Josh Randle MD Dec 20, 2016 10:36
[2016-12-20] MEDS ORDERED: DO NOT ADM ANY ANTICOAGULANT DRUGS PRN (10:45)
[2016-12-20] MEDS: PANTOPRAZOLE SODIUM 40 MG VIAL IV PUSH SCH ×2 (12:58→21:53)
[2016-12-20] MEDS: FOLIC ACID 1 MG TAB PO SCH (12:58)
[2016-12-20] MEDS: INSULIN DETEMIR 100 UNITS/ML VIAL SQ SCH ×2 (13:01→20:43)
--- NOTE | 2016-12-20 23:30 | MR ---
cc: RAEANN NJ HAROLD H. MD DATE 12/20/16 PROCEDURE Esophagogastroduodenoscopy with balloon dilatation of the esophagus. INDICATION Dysphagia and distal esophageal stricture REFERRED BY Dr. Nj PROCEDURE in detail After informed consent was obtained, the patient was placed in a left side down position. He was sedated by the anesthesia service. After adequate sedation was achieved, the Pentax video gastroscope was inserted in the oropharynx and advanced down through the esophagus passing easily through the distal esophagus into the stomach. It was then advanced slowly through the stomach and into the descending duodenum. It was then slowly withdrawn examining the mucosal surfaces carefully. Retroflex exam was performed and the fundus, cardia scope was then straightened and a balloon dilating catheter was advanced into the stomach. It was pulled across the stricture and the stricture was dilated to 13.5, 14.5 and 15.5 mm using a balloon dilating catheter. The balloon catheter was deflated and taken out of the scope. The scope was then reinserted and the distal esophagus was examined. There was some blood present there, but there was no active bleeding. The scope was then withdrawn and the procedure was terminated. He tolerated the procedure well and was returned to the recovery area in good condition. FINDINGS 1. The esophagus had possible grade one varices. 2. There was a distal stricture at the GE junction. This was dilated to 13.5, 14.5 and 15.5 mm with the balloon dilating catheter. 3. The stomach was friable with bright red blood coming from suction angulo. There were no ulcerations or erosions there. 4. The duodenum was normal. IMPRESSION 1. Esophageal varices. 2. Distal esophageal stricture at the GE junction dilated to 15.5 mm. RECOMMENDATIONS 1. Advance the diet to clear liquids at this time and then a full liquid diet at supper time if he is stable. Advance to soft food tomorrow if he remains stable. 2. Follow the H&H. Josh Randle MD [facility]/ /10:44 AM /11:26 PM
[2016-12-21] VITALS (13 sets, daily range): BP systolic 107–145; BP diastolic 60–73; PULSE 86–106; RESP 18–33; TEMP 98.3–98.8; O2SAT 93–97
[2016-12-21] MEDS: PIPERACIL-TAZO 4.5 GM PREMIX 100 ML IV SCH ×3 (02:57→18:22)
[2016-12-21] MEDS: RESP: ALBUTEROL 2.5 MG/IPRATROPIUM 0.5 MG NEB (SCH) NEB ×2 (03:42→08:39)
[2016-12-21] MEDS: INSULIN NovoLIN REGULAR SUPPLEMENTAL SCALE SQ SCH ×7 (04:00→23:16)
[2016-12-21] MEDS: CHLORHEXIDINE GLUCONATE 2 % 1 PACK (2 CLOTHS) TOP SCH (04:00)
[2016-12-21 05:36] LABS: AUTOMATED NEUTROPHIL # 2.8 TH/MM3 (1.8-7.7); BASOPHIL % 0.8 % (0.0-2.0); EOSINOPHIL # 0.2 TH/MM3 (0-0.4); EOSINOPHIL % 4.9 % (0.0-4.0); HEMATOCRIT 32.1 % (39.0-51.0); LYMPH % 26.8 % (9.0-44.0); LYMPHOCYTE # 1.4 TH/MM3 (1.0-4.8); MEAN CELL VOLUME 94.4 FL (80.0-100.0); MEAN CORPUSCULAR HEMOGLOBIN 31.4 PG (27.0-34.0); MEAN CORPUSCULAR HGB CONC 33.3 % (32.0-36.0); MONO % 12.1 % (0.0-8.0); NEUT % 55.4 % (16.0-70.0); PLATELET COUNT 82 TH/MM3 (150-450); RED CELL DISTRIBUTION WIDTH 13.2 % (11.6-17.2); WHITE BLOOD COUNT 5.1 TH/MM3 (4.0-11.0)
[2016-12-21 05:40] LABS: HEMO FLAGS AUTO DIFF
[2016-12-21 05:50] LABS: MAGNESIUM 1.7 MG/DL (1.5-2.5); POTASSIUM 3.1 MEQ/L (3.5-5.1)
[2016-12-21] MEDS: METOPROLOL TARTRATE 25 MG TAB PO SCH ×3 (06:00→22:59)
[2016-12-21] MEDS: ARTIFICIAL TEARS OPTH SOLN 15 ML BTL EACH EYE SCH ×3 (06:00→23:00)
[2016-12-21 06:04] LABS: APTT (PATIENT) 27.3 SEC (24.3-30.1)
[2016-12-21 07:14] LABS: PLATELET ESTIMATE SMEAR LOW (NORMAL); PLATELET MORPHOLOGY NORMAL (NORMAL); SCAN/DIFF AUTO DIFF CONFIRMED
[2016-12-21] MEDS: CHLORHEXIDINE 0.12% (ORAL KIT) 15 ML CUP MT SCH ×2 (08:00→20:19)
[2016-12-21] MEDS: THIAMINE HCL 100 MG TAB PO SCH (08:51)
[2016-12-21] MEDS: MULTIVITAMIN TAB PO SCH (08:51)
[2016-12-21] MEDS: FOLIC ACID 1 MG TAB PO SCH (08:51)
[2016-12-21] MEDS: INSULIN DETEMIR 100 UNITS/ML VIAL SQ SCH ×2 (08:55→20:53)
[2016-12-21] MEDS: PANTOPRAZOLE SODIUM 40 MG VIAL IV PUSH SCH ×2 (11:14→23:01)
[2016-12-21] MEDS: POTASSIUM PHOSPHATE INJ 30 MMOL in SODIUM CHLOR 0.9% 250 ML INJ 250 ML IV PRN (11:15)
--- NOTE | 2016-12-21 14:17 | PD.TRANSFR ---
Transfer Summary Admission Date Dec 12, 2016 at 13:33 Admitting Diagnosis DKA, rhabdomyolysis, sepsis, positive troponin Diagnoses: (1) DKA (diabetic ketoacidoses) Diagnosis: Principal (2) Severe sepsis Diagnosis: Principal (3) NSTEMI (non-ST elevated myocardial infarction) Diagnosis: Principal (4) Lactic acidosis Diagnosis: Principal (5) Acute kidney failure Diagnosis: Principal (6) Hypokalemia Diagnosis: Principal (7) Alcohol withdrawal Diagnosis: Principal (8) UGIB (upper gastrointestinal bleed) Diagnosis: Principal (9) Esophageal stricture Diagnosis: Principal (10) Varices, esophageal Diagnosis: Principal (11) Medical non-compliance Diagnosis: Secondary (12) Type 2 diabetes mellitus Diagnosis: Secondary (13) Cirrhosis of liver Diagnosis: Secondary Transfer Summary/Subjective Patient is a 66 yo white male with past medical history of type 2 diabetes, hypertension, dyslipidemia who was brought into the emergency department for evaluation of severe weakness and lethargy. Patient apparently has been noncompliant with his insulin as per EMS and multiple of empty bottles of Mountain Dew was found at his home. He was found to be in feces all around his body. Apparently patient fell and was not able to get off the floor for several hours. Lab work revealed leukocytosis at 16.2., VBG showed metabolic acidosis with pH of 7.24. HCO3 of 15, Potassium is low at 2.6. Blood glucose was extremely elevated at 1717, serum acetone was positive, I advised ED to replace atleast 160 meq potassium as there is risk of further hypokalemia with insulin infusion. Lactic acid is elevated at 6.9. Creatinine 2.69. CPK 2392. Pt empirically cover with vancomycin and zosyn. I evaluated the patient in the emergency department and then again in the ICU. He is critically ill, tremulous. Extremely dehydrated, tachycardic. Additional 2 L fluid bolus was ordered. DKA protocol initiated, after repeat CMP. Panculture sent. I have also placed a right subclavian central line to facilitate, faster potassium replacement and also for fluid resuscitation 12/13: Afebrile. Currently resting in bed. Asking what time it is at the present time. Slightly improved appetite. Denies chest pain or shortness of breath. 12/14: Afebrile. Agitated overnight. Found out overnight drinks significant "Kyr[place] saki" alcohol daily. CIWA protocol initiated. Thiamine multivitamin and folate started. Insulin drip currently on schedule Levemir twice a day. Denies chest pain. Confused. 12/15: Afebrile. Intubated yesterday due to altered mental status/likely EtOH withdrawals. This a.m., noted post decrease to 84-57 on heparin drip. RN states melanotic stool. Hemoglobin appears stable however will check serial hemoglobin. Hemoccult still pending. Will make nothing by mouth except for meds. Continue aspirin and Plavix in light of non-STEMI. 12/16 Patient is sedated with Diprivan, Fentanyl and intubated. For EGD today. Afebrile. 12/17 No events overnight. Remains intubated and sedated with Diprivan and Fentanyl. 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, grade 1 varices s/p epi erosive gastritis and erosive duodenitis without bleeding 12/18 Patient extubated yesterday, tolerating well. Remains tachycardic. Hb 10.5 platelet count 57. 7/6: Large amount of melanotic stools noted today. Tachycardic but not hypotensive. Hb repeat ordered, GI re consulted 12/20 No events overnight. For repeat EGD today. Afebrile. H/H stable. 12/21 endoscopy yesterday with esophageal stricture dilation. Grade 1 esoph varices, no active bleeding per endoscopy report. Hemoglobin remained stable. Advance diet as tolerated Objective Vital Signs Date Time Temp Pulse Resp B/P Pulse Ox O2 Delivery O2 Flow Rate FiO2 12/21/16 10:00 106 12/21/16 08:40 93 Nasal Cannula 2.00 12/21/16 08:00 98.7 25 145/73 12/20/16 19:00 35 Intake and Output 12/20/16 12/20/16 12/20/16 07:59 15:59 23:59 Intake Total 381 ml 891 ml 991 ml Output Total 1000 ml 700 ml 1125 ml Balance -619 ml 191 ml -134 ml Result Diagram: 12/21/16 0415 12/21/16 0415 Imaging Last Impressions Chest X-Ray 12/16/16 0600 Signed Impressions: Service Date/Time: Friday, December 16, 2016 05:01 - CONCLUSION: 1. Cardiomegaly with increased pulmonary vascularity. 2. Support lines and tubes are unchanged. Deshawn Daugherty MD Abdomen/Pelvis CT 12/15/16 0000 Signed Impressions: Service Date/Time: Thursday, December 15, 2016 17:17 - CONCLUSION: 1. Cirrhotic appearing liver with mild ascites. There is also splenomegaly which likely secondary to portal hypertension. 2. Calcified gallstones. The gallbladder is distended. This appearance is unchanged from the prior exam. 3. 5 mm nonobstructing left renal stone. 4. The cause of the patient's bloody stool is not identified on this noncontrast CT examination. Mucosal lesions may not be seen on CT. 5. Bibasilar areas of consolidation or atelectasis. Kennedy Chatman MD Head CT 12/14/16 0000 Signed Impressions: Service Date/Time: Wednesday, December 14, 2016 09:12 - CONCLUSION: No acute disease. Omar Holland MD Renal Ultrasound 12/13/16 0000 Signed Impressions: Service Date/Time: Tuesday, December 13, 2016 18:07 - CONCLUSION: 1. The kidneys are grossly unremarkable in appearance with no definite evidence of hydronephrosis. There was suboptimal visualization of the left kidney. 2. Manrique catheter in the bladder. 3. Small amount of free fluid. Celio Melton MD Objective Remarks GEN: 66-year-old obese male lying in bed in [facility] SKIN: Warm and dry. No rash HEAD: Atraumatic. Normocephalic. EYES: Pupils equal and round 4 mm reactive to light and accommodation bilaterally.. ENT: No nasal bleeding or discharge. NECK: Trachea midline. No JVD. CARDIOVASCULAR: RRR nl S1, S2 no S4 without murmur or clicks, gallops or rubs RESPIRATORY: Diminished breath sounds due to body habitus. No wheezes rales or rhonchi. GASTROINTESTINAL: Abdomen soft, non-tender, obese. Hypoactive bowel sounds appreciated. MUSCULOSKELETAL: Extremities without significant peripheral edema. Chronic venous stasis bilateral lower extremity's. NEUROLOGICAL: Awake alert, follows commands Date of Insertion: Dec 12, 2016 Line: Central Venous Catheter Side: Right Location: Subclavian A/P Assessment and Plan NEURO/PSYCH: Acute metabolic encephalopathy-resolved Alcohol abuse, dependence Continue [facility] protocol for alcohol withdrawal Thiamine, folate and multivitamin CT head on admission revealed no acute intracranial findings Acetaminophen if necessary for fever/pain RESP: Acute respiratory failure secondary to AMS Extubated 12/17 tolerating well Continue with oxygen keep sat >92% DuoNeb every 6 hours scheduled with albuterol every 2 hours when necessary CV: Troponin elevation/NSTEMI Lactic acidosis History of hypertension History of dyslipidemia Grade 1 diastolic dysfunction Monitor HR and BP keep MAP>65mmHg. Lactic acid 1.[address] Burnett. IV heparin discontinued secondary to heme positive stools Metoprolol 25mg Q8. Holding Plavix in lieu of worsening thrombocytopenia discussed with cards -Dr. Burnett Hold ASA until plt count>100 due to GIB Troponin trending downward 2d echo 12/13 revealed EF 55-60%. LVH. Grade 1 diastolic dysfunction. GI: GIB Esophagus stricture at GE junction s/p dilation Grade 1 varices s/p epi injection Erosive gastritis and erosive duodenitis Probable Liver cirrhosis Elevated AST s/p EGD 12/16 :showed esophagus stricture at GE junction, grade 1 varices s/p epi injection, erosive gastritis and erosive duodenitis without bleeding Repeat EGD 12/20 with stricture dilation Protonix IV twice a day for GI prophylaxis Advance diet to soft today : Acute kidney failure - resolved Hypernatremia Monitor renal function, I/O's, electrolytes replacement as needed. Negative urine eosinophils. Prerenal indices. Negative hydronephrosis on renal ultrasound. ID: Received IV vancomycin and Zosyn in the ED. On Zosyn monitor for signs of infections ( Fever, WBC) DC 12/21/1612/12 BC: No growth 12/14: Sputum cx: normal resp jared 12/15 C-diff PCR negative HEME: Macrocytosis Leukocytosis- Resolved Thrombocytopenia Monitor CBC, CMP, coags. HIT panel: Negative ENDO/FEN: DM Hypernatremia On SSI ( high scale) with accuchecks Levemir 10 units every 12 PROPH: - Bilateral lower extremity SCDs. IV Protonix twice a day. IV heparin held in light of possible lower GI bleed and Hemoccult positive LINES: - Right subclavian central line placed 12/12 -DC today Level II Transfer to Med/Surg. Consult [facility] to assume care in Ivory Benavides MD Dec 21, 2016 14:17
--- NOTE | 2016-12-21 15:06 | HHI.GIFU ---
Subjective Remarks Patient is resting in bed, states he had BM this morning, per nurse, this was dark but not black or like it was previously, but it was sent to the lab to test for blood occult. Patient denies nausea, vomiting or abd pain . (Aydee Hughes) Objective Vitals I&O Vital Signs Date Time Temp Pulse Resp B/P Pulse Ox O2 Delivery O2 Flow Rate FiO2 12/21/16 14:00 104 12/21/16 12:00 98.8 102 27 107/63 93 12/21/16 12:00 102 12/21/16 10:00 106 12/21/16 09:00 104 12/21/16 08:40 93 Nasal Cannula 2.00 12/21/16 08:00 90 12/21/16 08:00 98.7 90 25 145/73 94 12/21/16 07:00 Nasal Cannula 2.00 12/21/16 06:00 91 12/21/16 04:00 98.6 92 29 124/61 97 12/21/16 04:00 92 12/21/16 02:00 93 12/21/16 00:00 98.3 90 24 122/60 97 12/20/16 22:00 86 12/20/16 21:41 99 Nasal Cannula 1.00 12/20/16 20:00 98.6 90 27 108/56 96 12/20/16 20:00 90 12/20/16 19:00 92 27 122/68 97 12/20/16 19:00 Nasal Cannula 3.00 35 12/20/16 18:00 91 20 122/61 95 12/20/16 17:00 87 26 116/66 96 12/20/16 16:00 90 25 140/62 95 12/20/16 15:30 101 34 94 I/O 12/20/16 12/20/16 12/20/16 12/21/16 12/21/16 12/21/16 07:00 15:00 23:00 07:00 15:00 23:00 Intake Total 381 ml 300 ml 1582 ml 891 ml Output Total 1000 ml 1825 ml 450 ml Balance -619 ml 300 ml -243 ml 441 ml Intake Oral 1230 ml 750 ml IV Total 381 ml 352 ml 141 ml Other 300 ml Output Urine Total 1000 ml 1825 ml 450 ml Stool Total 0 ml 0 ml # Bowel Movements 0 Laboratory Laboratory Tests Test 12/21/16 04:15 White Blood Count 5.1 Red Blood Count 3.40 Hemoglobin 10.7 Hematocrit 32.1 Mean Corpuscular Volume 94.4 Mean Corpuscular Hemoglobin 31.4 Mean Corpuscular Hemoglobin 33.3 Concent Red Cell Distribution Width 13.2 Platelet Count 82 Mean Platelet Volume 8.9 Neutrophils (%) (Auto) 55.4 Lymphocytes (%) (Auto) 26.8 Monocytes (%) (Auto) 12.1 Eosinophils (%) (Auto) 4.9 Basophils (%) (Auto) 0.8 Neutrophils # (Auto) 2.8 Lymphocytes # (Auto) 1.4 Monocytes # (Auto) 0.6 Eosinophils # (Auto) 0.2 Basophils # (Auto) 0.0 CBC Comment AUTO DIFF Differential Comment AUTO DIFF CONFIRMED Platelet Estimate LOW Platelet Morphology Comment NORMAL Activated Partial 27.3 Thromboplast Time Sodium Level 142 Potassium Level 3.1 Chloride Level 106 Carbon Dioxide Level 28.0 Anion Gap 8 Blood Urea Nitrogen 8 Creatinine 0.73 Estimat Glomerular Filtration 108 Rate Random Glucose 137 Calcium Level 8.1 Phosphorus Level 2.4 Magnesium Level 1.7 Date/Time Procedure Status Source Growth 12/21/16 11:15 Stool Occult Blood (LUIS) Received Stool Stool Pending Imaging Last Impressions Chest X-Ray 12/19/16 0600 Signed Impressions: Service Date/Time: December 03:24 - CONCLUSION: 1. Right basilar density again seen. Deshawn Daugherty MD Abdomen/Pelvis CT 12/15/16 0000 Signed Impressions: Service Date/Time: Thursday, December 15, 2016 17:17 - CONCLUSION: 1. Cirrhotic appearing liver with mild ascites. There is also splenomegaly which likely secondary to portal hypertension. 2. Calcified gallstones. The gallbladder is distended. This appearance is unchanged from the prior exam. 3. 5 mm nonobstructing left renal stone. 4. The cause of the patient's bloody stool is not identified on this noncontrast CT examination. Mucosal lesions may not be seen on CT. 5. Bibasilar areas of consolidation or atelectasis. Kennedy Chatman MD Head CT 12/14/16 0000 Signed Impressions: Service Date/Time: Wednesday, December 14, 2016 09:12 - CONCLUSION: No acute disease. Omar Holland MD Renal Ultrasound 12/13/16 0000 Signed Impressions: Service Date/Time: Tuesday, December 13, 2016 18:07 - CONCLUSION: 1. The kidneys are grossly unremarkable in appearance with no definite evidence of hydronephrosis. There was suboptimal visualization of the left kidney. 2. Manrique catheter in the bladder. 3. Small amount of free fluid. Celio Melton MD Physical Exam HEENT: Normocephalic CHEST: Resp. even/unlabored, diminished bases. CARDIAC: ST ABDOMEN: Soft, obese, nondistended, nontender; no hepatosplenomegaly; bowel sounds are present in all four quadrants. EXTREMITIES: Generalized edema. SKIN: Spotted rash to neck/ant chest SIGNAL OPERATOR LINGUIST: Alert, oriented. (Aydee Hughes) Assessment and Plan Plan ASSESSMENT - Melena. Abdomen/Pelvis CT (12/15/16)-----> 1. Cirrhotic appearing liver with mild ascites. There is also splenomegaly which likely secondary to portal hypertension. 2. Calcified gallstones. The gallbladder is distended. This appearance is unchanged from the prior exam. 3. 5 mm nonobstructing left renal stone. 4. The cause of the patient's bloody stool is not identified on this noncontrast CT examination. Mucosal lesions may not be seen on CT. 5. Bibasilar areas of consolidation or atelectasis. 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 Bleeding started when the scope was pushed through the stricture. Injection of 4cc epi provided control of bleeding OG tube removed. Stomach: erosive gastritis without bleeding. Duodenum: erosive duodenitis without bleeding. No n/v, no abdominal pain. Has had several melanotic stools today. HH this am was 11.2/32.7, Rpt. is pending. PPI with bid dosing. Will plan for repeat EGD, possible dilatation in am (has had diet today). PPI - Anemia secondary to acute blood loss. HH stable 11.2/32.7, but has had several melanotic stools and rpt HH is pending. PPI - Esophageal stricture at GE junction. PPI. Rpt. EGD tomorrow, possible dilatation - Thrombocytopenia. Plt 71 - Acute metabolic encephalopathy. Ammonia 16. Improved. Lethargic, but oriented to place and person. - Liver cirrhosis. CT as above with cirrhotic appearing liver, ascites, splenomegaly likely secondary to portal hypertension. Varices on EGD. - ETOH abuse. Thiamine, MVI. ETOH cessation. - Sepsis. BCx no growth 5 days. Sputum with moderate growth normal respiratory jared. Zosyn. - ARF, resolved. - Elevated troponin, NSTEMI. Cardiology following, was planning for ischemic evaluation, but on hold secondary to thrombocyotpenia and melena. Plavix stopped, if further drop in Plts, then the plan is to stop ASA. Hold cath as they are not able to give further anti-coagulants/anti- platelets during procedure, con't medical management - DKA (resolved) HTN, Hyperlipidemia, DM, DKA - noncompliant, per primary. - EGD repeat on 12/20 for dysphagia and ? recurrent GI bleed showed friable mucosa. Stricture at GE junction. Dilated to 15.5mm with balloon. No apparent complication. 12-21-16- S/P EGD on (12/20/16) ----> esophageal varices, distal esophageal stricture at GE junction dilated to 15.5 mm No more bleeding, dark stools today but no melena, hh stable Plan: - full liquid diet - Follow H/H - Cont. PPI with BID dosing - CBC, CMP in am - Complete ETOH cessation - Supportive care - Patient seen and examined by Dr. Del Rio and myself (Aydee Hughes) Aydee Hughes Dec 21, 2016 15:06 Neeta Del Rio MD Dec 21, 2016 18:19
[2016-12-22] VITALS (8 sets, daily range): BP systolic 114–141; BP diastolic 56–76; PULSE 86–103; RESP 16–26; TEMP 97.8–98.6; O2SAT 94–95
[2016-12-22 00:42] LABS: POTASSIUM 3.7 MEQ/L (3.5-5.1)
[2016-12-22] MEDS: CHLORHEXIDINE GLUCONATE 2 % 1 PACK (2 CLOTHS) TOP SCH (03:45)
[2016-12-22] MEDS: INSULIN NovoLIN REGULAR SUPPLEMENTAL SCALE SQ SCH ×5 (03:51→21:05)
[2016-12-22] MEDS: PIPERACIL-TAZO 4.5 GM PREMIX 100 ML IV SCH ×2 (03:52→11:46)
[2016-12-22] MEDS: METOPROLOL TARTRATE 25 MG TAB PO SCH ×3 (05:03→21:03)
[2016-12-22] MEDS: ARTIFICIAL TEARS OPTH SOLN 15 ML BTL EACH EYE SCH ×2 (05:04→17:17)
[2016-12-22 06:04] LABS: APTT (PATIENT) 27.4 SEC (24.3-30.1)
[2016-12-22 10:11] LABS: AUTOMATED NEUTROPHIL # 4.5 TH/MM3 (1.8-7.7); BASOPHIL # 0.1 TH/MM3 (0-0.2); EOSINOPHIL # 0.2 TH/MM3 (0-0.4); EOSINOPHIL % 3.8 % (0.0-4.0); HEMATOCRIT 33.1 % (39.0-51.0); LYMPH % 16.1 % (9.0-44.0); MEAN CELL VOLUME 95.5 FL (80.0-100.0); MEAN CORPUSCULAR HEMOGLOBIN 31.8 PG (27.0-34.0); MEAN CORPUSCULAR HGB CONC 33.3 % (32.0-36.0); NEUT % 70.1 % (16.0-70.0); PLATELET COUNT 92 TH/MM3 (150-450); RED BLOOD COUNT 3.47 MIL/MM3 (4.50-5.90); RED CELL DISTRIBUTION WIDTH 13.3 % (11.6-17.2); WHITE BLOOD COUNT 6.4 TH/MM3 (4.0-11.0)
[2016-12-22 10:13] LABS: HEMO FLAGS AUTO DIFF
[2016-12-22 10:49] LABS: PLATELET ESTIMATE SMEAR LOW (NORMAL); PLATELET MORPHOLOGY NORMAL (NORMAL); SCAN/DIFF AUTO DIFF CONFIRMED
[2016-12-22] MEDS: MULTIVITAMIN TAB PO SCH (10:54)
[2016-12-22] MEDS: FOLIC ACID 1 MG TAB PO SCH (10:54)
[2016-12-22] MEDS: PANTOPRAZOLE SODIUM 40 MG VIAL IV PUSH SCH (10:54)
[2016-12-22] MEDS: THIAMINE HCL 100 MG TAB PO SCH (10:54)
[2016-12-22 11:01] LABS: ANION GAP 6 MEQ/L (5-15); AST (GOT) 24 U/L (15-37); BICARBONATE 26.8 MEQ/L (21.0-32.0); BLOOD UREA NITROGEN 6 MG/DL (7-18); CHLORIDE 106 MEQ/L (98-107); GLOMERULAR FILTRATION RATE 106 ML/MIN (>89); POTASSIUM 3.6 MEQ/L (3.5-5.1); SODIUM (NA) 139 MEQ/L (136-145)
[2016-12-22] MEDS: INSULIN DETEMIR 100 UNITS/ML VIAL SQ SCH (11:01)
[2016-12-22 11:03] LABS: ALT (GPT) 25 U/L (12-78)
[2016-12-22 11:04] LABS: ALKALINE PHOSPHATASE 135 U/L (45-117); TOTAL BILIRUBIN ADULT 0.7 MG/DL (0.2-1.0)
--- NOTE | 2016-12-22 11:17 | HHI.GIFU ---
Subjective Remarks Pt reports that he had one tarry BM this morning. Denies any abd pain Tolerating full liquid diet. (Nabila Briones) Objective Vitals I&O Vital Signs Date Time Temp Pulse Resp B/P Pulse Ox O2 Delivery O2 Flow Rate FiO2 12/22/16 08:41 2.00 12/22/16 08:00 98.4 86 26 141/70 94 12/22/16 04:00 89 12/22/16 04:00 98.3 89 16 125/65 95 12/22/16 00:00 86 12/22/16 00:00 98.6 98 18 132/74 95 12/21/16 21:30 Nasal Cannula 2.00 35 12/21/16 21:00 86 12/21/16 20:30 98.4 93 18 134/67 96 12/21/16 16:00 98.3 105 33 137/70 97 12/21/16 16:00 105 12/21/16 14:00 104 12/21/16 12:00 98.8 102 27 107/63 93 12/21/16 12:00 102 I/O 12/21/16 12/21/16 12/21/16 12/22/16 12/22/16 12/22/16 07:00 15:00 23:00 07:00 15:00 23:00 Intake Total 891 ml 938 ml 120 ml 480 ml Output Total 450 ml 1488 ml 550 ml Balance 441 ml -550 ml 120 ml -70 ml Intake Oral 750 ml 600 ml 120 ml 480 ml IV Total 141 ml 338 ml Output Urine Total 450 ml 1485 ml 550 ml Stool Total 0 ml 3 ml # Bowel Movements 2 Laboratory Laboratory Tests Test 12/21/16 12/22/16 12/22/16 23:05 04:00 09:58 Potassium Level 3.7 3.6 Phosphorus Level 2.3 Activated Partial 27.4 Thromboplast Time White Blood Count 6.4 Red Blood Count 3.47 Hemoglobin 11.0 Hematocrit 33.1 Mean Corpuscular Volume 95.5 Mean Corpuscular Hemoglobin 31.8 Mean Corpuscular Hemoglobin 33.3 Concent Red Cell Distribution Width 13.3 Platelet Count 92 Mean Platelet Volume 9.0 Neutrophils (%) (Auto) 70.1 Lymphocytes (%) (Auto) 16.1 Monocytes (%) (Auto) 9.0 Eosinophils (%) (Auto) 3.8 Basophils (%) (Auto) 1.0 Neutrophils # (Auto) 4.5 Lymphocytes # (Auto) 1.0 Monocytes # (Auto) 0.6 Eosinophils # (Auto) 0.2 Basophils # (Auto) 0.1 CBC Comment AUTO DIFF Differential Comment AUTO DIFF CONFIRMED Platelet Estimate LOW Platelet Morphology Comment NORMAL Sodium Level 139 Chloride Level 106 Carbon Dioxide Level 26.8 Anion Gap 6 Blood Urea Nitrogen 6 Creatinine 0.74 Estimat Glomerular Filtration 106 Rate Random Glucose 182 Calcium Level 8.0 Total Bilirubin 0.7 Aspartate Amino Transf 24 (AST/SGOT) Alanine Aminotransferase 25 (ALT/SGPT) Alkaline Phosphatase 135 Total Protein 5.8 Albumin 2.2 Date/Time Procedure Status Source Growth 12/21/16 11:15 Stool Occult Blood (LUIS) - Final Complete Stool Stool HEMOCCULT NEGATIVE Imaging Last Impressions Chest X-Ray 12/19/16 0600 Signed Impressions: Service Date/Time: December 03:24 - CONCLUSION: 1. Right basilar density again seen. Deshawn Daugherty MD Abdomen/Pelvis CT 12/15/16 0000 Signed Impressions: Service Date/Time: Thursday, December 15, 2016 17:17 - CONCLUSION: 1. Cirrhotic appearing liver with mild ascites. There is also splenomegaly which likely secondary to portal hypertension. 2. Calcified gallstones. The gallbladder is distended. This appearance is unchanged from the prior exam. 3. 5 mm nonobstructing left renal stone. 4. The cause of the patient's bloody stool is not identified on this noncontrast CT examination. Mucosal lesions may not be seen on CT. 5. Bibasilar areas of consolidation or atelectasis. Kennedy Chatman MD Head CT 12/14/16 0000 Signed Impressions: Service Date/Time: Wednesday, December 14, 2016 09:12 - CONCLUSION: No acute disease. Omar Holland MD Renal Ultrasound 12/13/16 0000 Signed Impressions: Service Date/Time: Tuesday, December 13, 2016 18:07 - CONCLUSION: 1. The kidneys are grossly unremarkable in appearance with no definite evidence of hydronephrosis. There was suboptimal visualization of the left kidney. 2. Manrique catheter in the bladder. 3. Small amount of free fluid. Celio Melton MD Physical Exam HEENT: Normocephalic CHEST: Resp. even/unlabored, diminished bases. CARDIAC: ST ABDOMEN: Soft, obese, nondistended, nontender; no hepatosplenomegaly; bowel sounds are present in all four quadrants. EXTREMITIES: Generalized edema. SKIN: Spotted rash to neck/ant chest RAMP FLIGHT ATTENDANT: Alert, oriented. (Nabila Briones) Assessment and Plan Plan ASSESSMENT - Melena. Abdomen/Pelvis CT (12/15/16)-----> 1. Cirrhotic appearing liver with mild ascites. There is also splenomegaly which likely secondary to portal hypertension. 2. Calcified gallstones. The gallbladder is distended. This appearance is unchanged from the prior exam. 3. 5 mm nonobstructing left renal stone. 4. The cause of the patient's bloody stool is not identified on this noncontrast CT examination. Mucosal lesions may not be seen on CT. 5. Bibasilar areas of consolidation or atelectasis. 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 Bleeding started when the scope was pushed through the stricture. Injection of 4cc epi provided control of bleeding OG tube removed. Stomach: erosive gastritis without bleeding. Duodenum: erosive duodenitis without bleeding. No n/v, no abdominal pain. Has had several melanotic stools on 12/20 and underwent repeat EGD with dilation (12/20/16) ----> esophageal varices, distal esophageal stricture at GE junction dilated to 15.5 mm. No more bleeding or melena reported. H/H stable at 11.0/33.1 (12/22). PPI with bid dosing. - Anemia secondary to acute blood loss. HH stable 11.0/33.1. PPI - Esophageal stricture at GE junction. PPI. Rpt dilation performed on 12/20. - Thrombocytopenia. Plt 92 - Acute metabolic encephalopathy. Ammonia 16 (12/12). Improved. Lethargic, but oriented to place and person. - Liver cirrhosis. CT as above with cirrhotic appearing liver, ascites, splenomegaly likely secondary to portal hypertension. Varices on EGD. - ETOH abuse. Thiamine, MVI. ETOH cessation. - Sepsis. BCx no growth 5 days. Sputum with moderate growth normal respiratory jared. Zosyn. - ARF, resolved. - Elevated troponin, NSTEMI. Cardiology following, was planning for ischemic evaluation, but on hold secondary to thrombocytopenia and melena. Plavix stopped, if further drop in Plts, then the plan is to stop ASA. Hold cath as they are not able to give further anti-coagulants/anti- platelets during procedure, cont. medical management - DKA (resolved) HTN, Hyperlipidemia, DM, DKA - noncompliant, per primary. Plan: - Full liquid diet - Monitor H/H - Cont. Protonix BID - CBC, CMP in am - Complete ETOH cessation - Supportive care - Patient seen and examined by myself and Dr. Del Rio and this note was written on her behalf. (Nabila Briones) Nabila Briones Dec 22, 2016 11:17 Neeta Del Rio MD Dec 22, 2016 14:33
[2016-12-22] MEDS: CHLORHEXIDINE 0.12% (ORAL KIT) 15 ML CUP MT SCH ×2 (11:47→20:00)
--- NOTE | 2016-12-22 16:38 | HHI.PR ---
Subjective Remarks pt is seen this morning around 11 AM. Says he is feeling all right. Denies any chest pain or shortness of breath. He does report some urethral irritation. Manrique still in place. Objective Vital Signs Date Time Temp Pulse Resp B/P Pulse Ox O2 Delivery O2 Flow Rate FiO2 12/22/16 12:00 97.8 101 16 114/56 95 12/22/16 08:41 2.00 12/22/16 08:00 98.4 86 26 141/70 94 12/22/16 07:00 Nasal Cannula 2.00 12/22/16 04:00 89 12/22/16 04:00 98.3 89 16 125/65 95 12/22/16 00:00 86 12/22/16 00:00 98.6 98 18 132/74 95 12/21/16 21:30 Nasal Cannula 2.00 35 12/21/16 21:00 86 12/21/16 20:30 98.4 93 18 134/67 96 I/O 12/21/16 12/21/16 12/21/16 12/22/16 12/22/16 12/22/16 06:59 14:59 22:59 06:59 14:59 22:59 Intake Total 891 ml 938 ml 120 ml 480 ml Output Total 450 ml 1488 ml 550 ml Balance 441 ml -550 ml 120 ml -70 ml Intake Oral 750 ml 600 ml 120 ml 480 ml IV Total 141 ml 338 ml Output Urine Total 450 ml 1485 ml 550 ml Stool Total 0 ml 3 ml # Bowel Movements 2 Result Diagram: 12/22/1695712/22/1658 Objective Remarks GENERAL: Sitting up in bed. Appears comfortable. SKIN: Warm and dry. HEAD: Normocephalic. EYES: No scleral icterus. No injection or drainage. NECK: Supple, trachea midline. No JVD. CARDIOVASCULAR: Regular rate and rhythm without murmurs, gallops, or rubs. RESPIRATORY: Breath sounds equal bilaterally. No accessory muscle use. GASTROINTESTINAL: Abdomen soft, non-tender, nondistended. MUSCULOSKELETAL: No cyanosis. Trace dependent edema. BACK: Nontender without obvious deformity. No CVA tenderness. A/P Assessment and Plan ========12/22/16========= //Hematuria. Discussed with nurse. Discontinue Manrique. Appears to have some hematuria following Manrique removal. Urinalysis ordered. No signs of infection currently //Alcohol withdrawal. Continue [facility] protocol. //Rhabdomyolysis on admission. Repeat CK. //N STEMI. Weight until platelet count over 100 to start NEURO/PSYCH: //Acute metabolic encephalopathy-resolved //Alcohol abuse, dependence Continue [facility] protocol for alcohol withdrawal Thiamine, folate and multivitamin CT head on admission revealed no acute intracranial findings Acetaminophen if necessary for fever/pain RESP: //Acute respiratory failure secondary to AMS Extubated 12/17 tolerating well Continue with oxygen keep sat >92% DuoNeb every 6 hours scheduled with albuterol every 2 hours when necessary CV: //Troponin elevation/NSTEMI //Lactic acidosis //History of hypertension //History of dyslipidemia //Grade 1 diastolic dysfunction Monitor HR and BP keep MAP>65mmHg. Lactic acid 1.[address] Burnett. IV heparin discontinued secondary to heme positive stools Metoprolol 25mg Q8. Holding Plavix in lieu of worsening thrombocytopenia discussed with cards -Dr. Burnett Hold ASA until plt count>100 due to GIB Troponin trending downward 2d echo 12/13 revealed EF 55-60%. LVH. Grade 1 diastolic dysfunction. 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 Negative urine eosinophils. Prerenal indices. Negative hydronephrosis on renal ultrasound. ID: Received IV vancomycin and Zosyn in the ED. On Zosyn monitor for signs of infections ( Fever, WBC) DC 12/21/1612/12 BC: No growth 12/14: Sputum cx: normal resp jared 12/15 C-diff PCR negative HEME: //Macrocytosis //Leukocytosis- Resolved //Thrombocytopenia Monitor CBC, CMP, coags. HIT panel: Negative ENDO/FEN: //DM //Hypernatremia On SSI ( high scale) with accuchecks Levemir 10 units every 12 PROPH: - Bilateral lower extremity SCDs. IV Protonix twice a day. IV heparin held in light of possible lower GI bleed and Hemoccult positive David Morataya MD Dec 22, 2016 16:38
--- NOTE | 2016-12-22 18:24 | HHI.PR ---
Subjective Remarks F/U resp faliure, DKA, NSTEMI Objective Vitals Vital Signs Date Time Temp Pulse Resp B/P Pulse Ox O2 Delivery O2 Flow Rate FiO2 12/22/16 16:00 98.3 99 18 125/65 94 12/22/16 12:00 97.8 101 16 114/56 95 12/22/16 08:41 2.00 12/22/16 08:00 98.4 86 26 141/70 94 12/22/16 07:00 Nasal Cannula 2.00 12/22/16 04:00 89 12/22/16 04:00 98.3 89 16 125/65 95 12/22/16 00:00 86 12/22/16 00:00 98.6 98 18 132/74 95 12/21/16 21:30 Nasal Cannula 2.00 35 12/21/16 21:00 86 12/21/16 20:30 98.4 93 18 134/67 96 I/O 12/21/16 12/21/16 12/21/16 12/22/16 12/22/16 12/22/16 07:00 15:00 23:00 07:00 15:00 23:00 Intake Total 891 ml 938 ml 120 ml 480 ml Output Total 450 ml 1488 ml 550 ml 800 ml Balance 441 ml -550 ml 120 ml -70 ml -800 ml Intake Oral 750 ml 600 ml 120 ml 480 ml IV Total 141 ml 338 ml Output Urine Total 450 ml 1485 ml 550 ml 800 ml Stool Total 0 ml 3 ml # Voids 3 # Bowel Movements 2 1 Result Diagram: 12/22/16 0958 12/22/16 0958 Imaging Last Impressions Chest X-Ray 12/19/16 0600 Signed Impressions: Service Date/Time: December 03:24 - CONCLUSION: 1. Right basilar density again seen. Deshawn Daugherty MD Abdomen/Pelvis CT 12/15/16 0000 Signed Impressions: Service Date/Time: Thursday, December 15, 2016 17:17 - CONCLUSION: 1. Cirrhotic appearing liver with mild ascites. There is also splenomegaly which likely secondary to portal hypertension. 2. Calcified gallstones. The gallbladder is distended. This appearance is unchanged from the prior exam. 3. 5 mm nonobstructing left renal stone. 4. The cause of the patient's bloody stool is not identified on this noncontrast CT examination. Mucosal lesions may not be seen on CT. 5. Bibasilar areas of consolidation or atelectasis. Kennedy Chatman MD Head CT 12/14/16 0000 Signed Impressions: Service Date/Time: Wednesday, December 14, 2016 09:12 - CONCLUSION: No acute disease. Omar oHlland MD Renal Ultrasound 12/13/16 0000 Signed Impressions: Service Date/Time: Tuesday, December 13, 2016 18:07 - CONCLUSION: 1. The kidneys are grossly unremarkable in appearance with no definite evidence of hydronephrosis. There was suboptimal visualization of the left kidney. 2. Manrique catheter in the bladder. 3. Small amount of free fluid. Celio Melton MD Objective Remarks GENERAL: Sitting up in bed. Appears comfortable. SKIN: Warm and dry. HEAD: Normocephalic. EYES: No scleral icterus. No injection or drainage. NECK: Supple, trachea midline. No JVD. CARDIOVASCULAR: Regular rate and rhythm without murmurs, gallops, or rubs. RESPIRATORY: Breath sounds equal bilaterally. No accessory muscle use. GASTROINTESTINAL: Abdomen soft, non-tender, nondistended. MUSCULOSKELETAL: No cyanosis. Trace dependent edema. BACK: Nontender without obvious deformity. No CVA tenderness. Date of Insertion: Dec 12, 2016 Line: Central Venous Catheter Side: Right Location: Subclavian A/P Problem List: (1) DKA (diabetic ketoacidoses) ICD Code: E13.10 Status: Resolved (2) Severe sepsis ICD Code: A41.9 Status: Resolved (3) NSTEMI (non-ST elevated myocardial infarction) ICD Code: I21.4 Status: Acute (4) Lactic acidosis ICD Code: E87.2 Status: Resolved (5) Acute kidney failure ICD Code: N17.9 Status: Resolved (6) Hypokalemia ICD Code: E87.6 Status: Resolved (7) Alcohol withdrawal ICD Code: F10.239 Status: Acute (8) UGIB (upper gastrointestinal bleed) ICD Code: K92.2 Status: Resolved (9) Esophageal stricture ICD Code: K22.2 Status: Acute (10) Varices, esophageal ICD Code: I85.00 Status: Acute (11) Medical non-compliance ICD Code: Z91.19 Status: Acute (12) Type 2 diabetes mellitus ICD Code: E11.9 Status: Chronic (13) Cirrhosis of liver ICD Code: K74.60 Status: Chronic Assessment and Plan NEURO/PSYCH: //Acute metabolic encephalopathy-resolved //Alcohol abuse, dependence Continue [facility] protocol for alcohol withdrawal Thiamine, folate and multivitamin CT head on admission revealed no acute intracranial findings Acetaminophen if necessary for fever/pain RESP: //Acute respiratory failure secondary to encephalopathy Extubated 12/17 tolerating well Continue with oxygen keep sat >92% DuoNeb every 6 hours scheduled with albuterol every 2 hours when necessary CV: //Troponin elevation/NSTEMI. Med mgt for now //Lactic acidosis //History of hypertension //History of dyslipidemia //Grade 1 diastolic dysfunction Monitor HR and BP keep MAP>65mmHg. Lactic acid 1.[address] Burnett. IV heparin discontinued secondary to heme positive stools Metoprolol 25mg Q8. Holding Plavix in lieu of worsening thrombocytopenia discussed with cards -Dr. Burnett Hold ASA until plt count>100 due to GIB Troponin trending downward 2d echo 12/13 revealed EF 55-60%. LVH. Grade 1 diastolic dysfunction. 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 Discussed with nurse. Discontinue Manrique. Appears to have some hematuria following Manrique removal. Urinalysis ordered. Monitor renal function, I/O's, electrolytes replacement as needed. Negative urine eosinophils. Prerenal indices. Negative hydronephrosis on renal ultrasound. ID: Received IV vancomycin and Zosyn in the ED. On Zosyn monitor for signs of infections ( Fever, WBC) DC 12/21/1612/12 BC: No growth 12/14: Sputum cx: normal resp jared 12/15 C-diff PCR negative HEME: //Macrocytosis //Leukocytosis- Resolved //Thrombocytopenia Monitor CBC, CMP, coags. HIT panel: Negative ENDO/FEN: //DM //Hypernatremia On SSI ( high scale) with accuchecks Levemir 10 units every 12 PROPH: - Bilateral lower extremity SCDs. Protonix twice a day. IV heparin held in light of GI bleed and Hemoccult positive Problem Qualifiers (1) DKA (diabetic ketoacidoses): Qualified Code: E13.10 - Diabetic ketoacidosis without coma associated with type 2 diabetes mellitus (2) Type 2 diabetes mellitus: (3) Cirrhosis of liver: Dheeraj Hope MD Dec 22, 2016 18:24
[2016-12-22] MEDS ORDERED: INSULIN DETEMIR 100 UNITS/ML VIAL SQ SCH (21:00)
[2016-12-23] VITALS (9 sets, daily range): BP systolic 135–146; BP diastolic 65–81; PULSE 70–90; RESP 16–20; TEMP 96.7–97.7; O2SAT 94–97
[2016-12-23] MEDS: ARTIFICIAL TEARS OPTH SOLN 15 ML BTL EACH EYE SCH ×3 (00:28→14:18)
[2016-12-23] MEDS: PANTOPRAZOLE SODIUM 40 MG VIAL IV PUSH SCH ×2 (00:28→12:21)
[2016-12-23] MEDS: CHLORHEXIDINE GLUCONATE 2 % 1 PACK (2 CLOTHS) TOP SCH (04:00)
[2016-12-23] MEDS: METOPROLOL TARTRATE 25 MG TAB PO SCH ×2 (06:10→14:18)
[2016-12-23] MEDS: INSULIN NovoLIN REGULAR SUPPLEMENTAL SCALE SQ SCH ×3 (06:13→17:18)
[2016-12-23 06:27] LABS: AUTOMATED NEUTROPHIL # 3.9 TH/MM3 (1.8-7.7); BASOPHIL % 0.8 % (0.0-2.0); EOSINOPHIL # 0.3 TH/MM3 (0-0.4); EOSINOPHIL % 4.1 % (0.0-4.0); HEMATOCRIT 32.6 % (39.0-51.0); HEMO FLAGS DIFF FINAL; LYMPH % 22.7 % (9.0-44.0); LYMPHOCYTE # 1.4 TH/MM3 (1.0-4.8); MEAN CELL VOLUME 93.6 FL (80.0-100.0); MEAN CORPUSCULAR HGB CONC 34.2 % (32.0-36.0); MONO % 8.2 % (0.0-8.0); NEUT % 64.2 % (16.0-70.0); PLATELET COUNT 101 TH/MM3 (150-450); RED BLOOD COUNT 3.48 MIL/MM3 (4.50-5.90); RED CELL DISTRIBUTION WIDTH 13.6 % (11.6-17.2); WHITE BLOOD COUNT 6.1 TH/MM3 (4.0-11.0)
[2016-12-23 07:00] LABS: BICARBONATE 26.5 MEQ/L (21.0-32.0); MAGNESIUM 1.8 MG/DL (1.5-2.5); POTASSIUM 3.3 MEQ/L (3.5-5.1)
[2016-12-23] MEDS ORDERED: INSULIN DETEMIR 100 UNITS/ML VIAL SQ SCH (08:00)
[2016-12-23] MEDS: CHLORHEXIDINE 0.12% (ORAL KIT) 15 ML CUP MT SCH (08:00)
[2016-12-23] MEDS ORDERED: POTASSIUM CHLORIDE 10 MEQ CONTROLLED RELEASE TAB PO ONE (08:30)
[2016-12-23] MEDS ORDERED: POTASSIUM PHOSPHATE MONOBASIC 500 MG TAB PO SCH (09:00)
[2016-12-23] MEDS: FOLIC ACID 1 MG TAB PO SCH (09:15)
[2016-12-23] MEDS: THIAMINE HCL 100 MG TAB PO SCH (09:15)
[2016-12-23] MEDS: MULTIVITAMIN TAB PO SCH (09:15)
[2016-12-23 10:31] LABS: BACTERIA, URINE RARE /hpf; BLOOD, URINE SMALL (NEG); COMMENT (UR) CULTURE INDICATED; CULTURE IF INDICATED CULTURE INDICATED; GLUCOSE,URINE NEG (NEG); KETONE, URINE NEG (NEG); MUCUS URINE FEW /lpf (OCC); NITRITE,URINE NEG (NEG); PH, URINE 5.5 (5.0-8.5); URINE COLOR YELLOW (YELLW/STRAW)
[2016-12-23] MEDS ORDERED: GNP100TA3 PO (14:49)
[2016-12-23] MEDS ORDERED: LEVEMIR SQ ×2 (14:49)
[2016-12-23] MEDS ORDERED: NOVORP2 SQ (14:49)
[2016-12-23] MEDS ORDERED: IPRASOL NEB (14:49)
[2016-12-23] MEDS ORDERED: PANT40TA3 PO (14:49)
[2016-12-23] MEDS ORDERED: METO25TA3 PO (14:49)
--- NOTE | 2016-12-23 14:49 | HHI.DCPOC ---
Discharge Care Plan Diagnosis: (1) UGIB (upper gastrointestinal bleed) Your Health Problems Are: Difficulty with ADL Exercise Tolerance Goals to Promote Your Health * To prevent worsening of your condition and complications * To maintain your health at the optimal level Directions to Meet Your Goals Take your medications as prescribed Follow your dietary instruction Follow activity as directed Keep your appointments as scheduled Take your immunizations and boosters as scheduled If your symptoms worsen call your PCP, if no PCP go to Urgent Care Center or Emergency Room Smoking is Dangerous to Your Health. Avoid second hand smoke Call the 24-hour hour crisis hotline for domestic abuse at Dheeraj Hope MD Dec 23, 2016 14:49
[2016-12-23] MEDS ORDERED: K-PHTAB PO (14:51)
--- NOTE | 2016-12-23 15:00 | HHI.PR ---
Subjective Remarks Follow-up acute respiratory failure, DKA and NSTEMI. States he is doing okay exam for generalized weakness. Uses 1 L nasal cannula at home. Agrees with rehabilitation. Denies hallucinations, chest pain, shortness of breath and abdominal pain. Discussed with RN Objective Vitals Vital Signs Date Time Temp Pulse Resp B/P Pulse Ox O2 Delivery O2 Flow Rate FiO2 12/23/16 12:00 90 12/23/16 11:30 97.4 87 20 146/73 95 12/23/16 09:15 Nasal Cannula 2.00 12/23/16 08:13 70 12/23/16 07:30 97.3 78 20 135/65 97 12/23/16 04:00 97.7 87 18 141/81 94 12/23/16 00:00 97.6 85 16 139/72 95 12/22/16 21:24 96 Nasal Cannula 12/22/16 20:15 94 Nasal Cannula 1.50 12/22/16 20:00 97.9 92 18 134/76 95 12/22/16 16:00 98.3 99 18 125/65 94 I/O 12/22/16 12/22/16 12/22/16 12/23/16 12/23/16 12/23/16 07:00 15:00 23:00 07:00 15:00 23:00 Intake Total 480 ml 720 ml Output Total 550 ml 800 ml Balance -70 ml -800 ml 720 ml Intake Oral 480 ml 720 ml Output Urine Total 550 ml 800 ml # Voids 4 5 # Bowel Movements 2 1 Result Diagram: 12/23/16 0515 12/23/16 0515 Imaging Last Impressions Chest X-Ray 12/19/16 0600 Signed Impressions: Service Date/Time: December 03:24 - CONCLUSION: 1. Right basilar density again seen. Deshawn Daugherty MD Abdomen/Pelvis CT 12/15/16 0000 Signed Impressions: Service Date/Time: Thursday, December 15, 2016 17:17 - CONCLUSION: 1. Cirrhotic appearing liver with mild ascites. There is also splenomegaly which likely secondary to portal hypertension. 2. Calcified gallstones. The gallbladder is distended. This appearance is unchanged from the prior exam. 3. 5 mm nonobstructing left renal stone. 4. The cause of the patient's bloody stool is not identified on this noncontrast CT examination. Mucosal lesions may not be seen on CT. 5. Bibasilar areas of consolidation or atelectasis. Kennedy Chatman MD Head CT 12/14/16 0000 Signed Impressions: Service Date/Time: Wednesday, December 14, 2016 09:12 - CONCLUSION: No acute disease. Omar Holland MD Renal Ultrasound 12/13/16 0000 Signed Impressions: Service Date/Time: Tuesday, December 13, 2016 18:07 - CONCLUSION: 1. The kidneys are grossly unremarkable in appearance with no definite evidence of hydronephrosis. There was suboptimal visualization of the left kidney. 2. Manrique catheter in the bladder. 3. Small amount of free fluid. Celio Melton MD Objective Remarks GENERAL: Sitting up in bed. Appears comfortable. SKIN: Warm and dry. HEAD: Normocephalic. EYES: No scleral icterus. No injection or drainage. NECK: Supple, trachea midline. No JVD. CARDIOVASCULAR: Regular rate and rhythm without murmurs, gallops, or rubs. RESPIRATORY: Breath sounds equal bilaterally. No accessory muscle use. GASTROINTESTINAL: Abdomen soft, non-tender, nondistended. MUSCULOSKELETAL: No cyanosis. Trace dependent edema. BACK: Nontender without obvious deformity. No CVA tenderness. Procedures EGD with dilatation, central line placement A/P Problem List: (1) DKA (diabetic ketoacidoses) ICD Code: E13.10 Status: Resolved (2) Severe sepsis ICD Code: A41.9 Status: Resolved (3) NSTEMI (non-ST elevated myocardial infarction) ICD Code: I21.4 Status: Acute (4) Lactic acidosis ICD Code: E87.2 Status: Resolved (5) Acute kidney failure ICD Code: N17.9 Status: Resolved (6) Hypokalemia ICD Code: E87.6 Status: Resolved (7) Alcohol withdrawal ICD Code: F10.239 Status: Acute (8) UGIB (upper gastrointestinal bleed) ICD Code: K92.2 Status: Resolved (9) Esophageal stricture ICD Code: K22.2 Status: Acute (10) Varices, esophageal ICD Code: I85.00 Status: Acute (11) Medical non-compliance ICD Code: Z91.19 Status: Acute (12) Type 2 diabetes mellitus ICD Code: E11.9 Status: Chronic (13) Cirrhosis of liver ICD Code: K74.60 Status: Chronic Assessment and Plan NEURO/PSYCH: //Acute metabolic encephalopathy-resolved //Alcohol abuse, dependence. Continue [facility] protocol for alcohol withdrawal Thiamine, folate and multivitamin CT head on admission revealed no acute intracranial findings Acetaminophen if necessary for fever/pain RESP: //Acute respiratory failure secondary to encephalopathy Extubated 12/17 tolerating well Continue with oxygen keep sat >92% DuoNeb every 6 hours scheduled with albuterol every 2 hours when necessary CV: //Troponin elevation/NSTEMI. Med mgt for now //Lactic acidosis //History of hypertension //History of dyslipidemia //Grade 1 diastolic dysfunction Monitor HR and BP keep MAP>65mmHg. Lactic acid 1.[address] Burnett. IV heparin discontinued secondary to heme positive stools Metoprolol 25mg Q8. Holding Plavix in lieu of worsening thrombocytopenia discussed with cards -Dr. Burnett Hold ASA until plt count>100 due to GIB Troponin trending downward 2d echo 12/13 revealed EF 55-60%. LVH. Grade 1 diastolic dysfunction. 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 Discussed with nurse. Discontinue Manrique. Appears to have some hematuria following Manrique removal. Abnormal urinalysis urine culture indicated will follow-up results. Denies UTI symptoms Monitor renal function, I/O's, electrolytes replacement as needed. Negative urine eosinophils. Prerenal indices. Negative hydronephrosis on renal ultrasound. ID: Received IV vancomycin and Zosyn in the ED. On Zosyn monitor for signs of infections ( Fever, WBC) DC 12/21/1612/12 BC: No growth 12/14: Sputum cx: normal resp jared 12/15 C-diff PCR negative HEME: //Macrocytosis //Leukocytosis- Resolved //Thrombocytopenia Monitor CBC, CMP, coags. HIT panel: Negative ENDO/FEN: //DM //Hypernatremia On SSI ( high scale) with accuchecks Increased Levemir to 20 units in the morning and 10 units at bedtime PROPH: - Bilateral lower extremity SCDs. Protonix twice a day. IV heparin held in light of GI bleed and Hemoccult positive Problem Qualifiers (1) DKA (diabetic ketoacidoses): Qualified Code: E13.10 - Diabetic ketoacidosis without coma associated with type 2 diabetes mellitus (2) Type 2 diabetes mellitus: (3) Cirrhosis of liver: Dheeraj Hope MD Dec 23, 2016 15:00
--- NOTE | 2016-12-23 15:03 | HHI.DS ---
Discharge Summary Admission Date Dec 12, 2016 at 13:33 Discharge Date: Dec 23, 2016 Admitting Diagnosis DKA, rhabdomyolysis, sepsis, positive troponin (1) DKA (diabetic ketoacidoses) ICD Code: E13.10 Diagnosis: Principal (2) Severe sepsis ICD Code: A41.9 Diagnosis: Principal (3) NSTEMI (non-ST elevated myocardial infarction) ICD Code: I21.4 Diagnosis: Principal (4) Lactic acidosis ICD Code: E87.2 Diagnosis: Principal (5) Acute kidney failure ICD Code: N17.9 Diagnosis: Principal (6) Hypokalemia ICD Code: E87.6 Diagnosis: Principal (7) Alcohol withdrawal ICD Code: F10.239 Diagnosis: Principal (8) UGIB (upper gastrointestinal bleed) ICD Code: K92.2 Diagnosis: Principal (9) Esophageal stricture ICD Code: K22.2 Diagnosis: Principal (10) Varices, esophageal ICD Code: I85.00 Diagnosis: Principal (11) Medical non-compliance ICD Code: Z91.19 Diagnosis: Principal (12) Type 2 diabetes mellitus ICD Code: E11.9 Diagnosis: Principal (13) Cirrhosis of liver ICD Code: K74.60 Diagnosis: Principal Procedures EGD with dilatation, central line placement Brief History - From Admission Patient is a 66 yo white male with past medical history of type 2 diabetes, hypertension, dyslipidemia who was brought into the emergency department for evaluation of severe weakness and lethargy. Patient apparently has been noncompliant with his insulin as per EMS and multiple of empty bottles of Mountain Dew was found at his home. He was found to be in feces all around his body. Apparently patient fell and was not able to get off the floor for several hours. Lab work revealed leukocytosis at 16.2., VBG showed metabolic acidosis with pH of 7.24. HCO3 of 15, Potassium is low at 2.6. Blood glucose was extremely elevated at 1717, serum acetone was positive, I advised ED to replace atleast 160 meq potassium as there is risk of further hypokalemia with insulin infusion. Lactic acid is elevated at 6.9. Creatinine 2.69. CPK 2392. Pt empirically cover with vancomycin and zosyn. I evaluated the patient in the emergency department and then again in the ICU. He is critically ill, tremulous. Extremely dehydrated, tachycardic. Additional 2 L fluid bolus was ordered. DKA protocol initiated, after repeat CMP. Panculture sent. I have also placed a right subclavian central line to facilitate, faster potassium replacement and also for fluid resuscitation CBC/BMP: 12/23/16 0515 12/23/16 0515 Significant Findings Laboratory Tests Test 12/21/16 12/21/16 12/22/16 12/23/16 04:15 23:05 09:58 05:15 Red Blood Count 3.40 MIL/MM3 3.47 MIL/MM3 3.48 MIL/MM3 (4.50-5.90) (4.50-5.90) (4.50-5.90) Hemoglobin 10.7 GM/DL 11.0 GM/DL 11.1 GM/DL (13.0-17.0) (13.0-17.0) (13.0-17.0) Hematocrit 32.1 % 33.1 % 32.6 % (39.0-51.0) (39.0-51.0) (39.0-51.0) Platelet Count 82 TH/MM3 92 TH/MM3 101 TH/MM3 (150-450) (150-450) (150-450) Monocytes (%) (Auto) 12.1 % 9.0 % (0.0-8.0) 8.2 % (0.0-8.0) (0.0-8.0) Eosinophils (%) (Auto) 4.9 % (0.0-4.0) 4.1 % (0.0-4.0) Platelet Estimate LOW (NORMAL) LOW (NORMAL) Potassium Level 3.1 MEQ/L 3.3 MEQ/L (3.5-5.1) (3.5-5.1) Random Glucose 137 MG/DL 182 MG/DL 125 MG/DL (74-106) (74-106) (74-106) Calcium Level 8.1 MG/DL 8.0 MG/DL 8.0 MG/DL (8.5-10.1) (8.5-10.1) (8.5-10.1) Phosphorus Level 2.4 MG/DL 2.3 MG/DL 2.2 MG/DL (2.5-4.9) (2.5-4.9) (2.5-4.9) Neutrophils (%) (Auto) 70.1 % (16.0-70.0) Blood Urea Nitrogen 6 MG/DL (7-18) 5 MG/DL (7-18) Alkaline Phosphatase 135 U/L (45-117) Total Protein 5.8 GM/DL (6.4-8.2) Albumin 2.2 GM/DL (3.4-5.0) Test 12/23/16 09:43 Urine Turbidity HAZY (CLEAR) Urine Occult Blood SMALL (NEG) Urine Leukocyte Esterase LARGE (NEG) Urine RBC 14 /hpf (0-3) Urine WBC 83 /hpf (0-5) Urine WBC Clumps MOD (NONE) Urine Bacteria RARE /hpf (NONE) Urine Mucus FEW /lpf (OCC) Urine Yeast with Hyphae FEW (NONE) Urine Yeast (Budding) MOD (NONE) Imaging Last Impressions Chest X-Ray 12/19/16 0600 Signed Impressions: Service Date/Time: December 03:24 - CONCLUSION: 1. Right basilar density again seen. Deshawn Daugherty MD Abdomen/Pelvis CT 12/15/16 0000 Signed Impressions: Service Date/Time: Thursday, December 15, 2016 17:17 - CONCLUSION: 1. Cirrhotic appearing liver with mild ascites. There is also splenomegaly which likely secondary to portal hypertension. 2. Calcified gallstones. The gallbladder is distended. This appearance is unchanged from the prior exam. 3. 5 mm nonobstructing left renal stone. 4. The cause of the patient's bloody stool is not identified on this noncontrast CT examination. Mucosal lesions may not be seen on CT. 5. Bibasilar areas of consolidation or atelectasis. Kennedy Chatman MD Head CT 12/14/16 0000 Signed Impressions: Service Date/Time: Wednesday, December 14, 2016 09:12 - CONCLUSION: No acute disease. Omar Holland MD Renal Ultrasound 12/13/16 0000 Signed Impressions: Service Date/Time: Tuesday, December 13, 2016 18:07 - CONCLUSION: 1. The kidneys are grossly unremarkable in appearance with no definite evidence of hydronephrosis. There was suboptimal visualization of the left kidney. 2. Manrique catheter in the bladder. 3. Small amount of free fluid. Celio Melton MD PE at Discharge GENERAL: Sitting up in bed. Appears comfortable. SKIN: Warm and dry. HEAD: Normocephalic. EYES: No scleral icterus. No injection or drainage. NECK: Supple, trachea midline. No JVD. CARDIOVASCULAR: Regular rate and rhythm without murmurs, gallops, or rubs. RESPIRATORY: Breath sounds equal bilaterally. No accessory muscle use. GASTROINTESTINAL: Abdomen soft, non-tender, nondistended. MUSCULOSKELETAL: No cyanosis. Trace dependent edema. BACK: Nontender without obvious deformity. No CVA tenderness. Transfer Summary Patient is a 66 yo white male with past medical history of type 2 diabetes, hypertension, dyslipidemia who was brought into the emergency department for evaluation of severe weakness and lethargy. Patient apparently has been noncompliant with his insulin as per EMS and multiple of empty bottles of Mountain Dew was found at his home. He was found to be in feces all around his body. Apparently patient fell and was not able to get off the floor for several hours. Lab work revealed leukocytosis at 16.2., VBG showed metabolic acidosis with pH of 7.24. HCO3 of 15, Potassium is low at 2.6. Blood glucose was extremely elevated at 1717, serum acetone was positive, I advised ED to replace atleast 160 meq potassium as there is risk of further hypokalemia with insulin infusion. Lactic acid is elevated at 6.9. Creatinine 2.69. CPK 2392. Pt empirically cover with vancomycin and zosyn. I evaluated the patient in the emergency department and then again in the ICU. He is critically ill, tremulous. Extremely dehydrated, tachycardic. Additional 2 L fluid bolus was ordered. DKA protocol initiated, after repeat CMP. Panculture sent. I have also placed a right subclavian central line to facilitate, faster potassium replacement and also for fluid resuscitation 12/13: Afebrile. Currently resting in bed. Asking what time it is at the present time. Slightly improved appetite. Denies chest pain or shortness of breath. 12/14: Afebrile. Agitated overnight. Found out overnight drinks significant "[place] saki" alcohol daily. CIWA protocol initiated. Thiamine multivitamin and folate started. Insulin drip currently on schedule Levemir twice a day. Denies chest pain. Confused. 12/15: Afebrile. Intubated yesterday due to altered mental status/likely EtOH withdrawals. This a.m., noted post decrease to 84-57 on heparin drip. RN states melanotic stool. Hemoglobin appears stable however will check serial hemoglobin. Hemoccult still pending. Will make nothing by mouth except for meds. Continue aspirin and Plavix in light of non-STEMI. 12/16 Patient is sedated with Diprivan, Fentanyl and intubated. For EGD today. Afebrile. 12/17 No events overnight. Remains intubated and sedated with Diprivan and Fentanyl. 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, grade 1 varices s/p epi erosive gastritis and erosive duodenitis without bleeding 12/18 Patient extubated yesterday, tolerating well. Remains tachycardic. Hb 10.5 platelet count 57. 12/19: Large amount of melanotic stools noted today. Tachycardic but not hypotensive. Hb repeat ordered, GI re consulted 12/20 No events overnight. For repeat EGD today. Afebrile. H/H stable. 12/21 endoscopy yesterday with esophageal stricture dilation. Grade 1 esoph varices, no active bleeding per endoscopy report. Hemoglobin remained stable. Advance diet as tolerated Hospital Course NEURO/PSYCH: //Acute metabolic encephalopathy-resolved //Alcohol abuse, dependence. Continue [facility] protocol for alcohol withdrawal Thiamine, folate and multivitamin CT head on admission revealed no acute intracranial findings Acetaminophen if necessary for fever/pain RESP: //Acute respiratory failure secondary to encephalopathy Extubated 12/17 tolerating well Continue with oxygen keep sat >92% DuoNeb every 6 hours scheduled with albuterol every 2 hours when necessary CV: //Troponin elevation/NSTEMI. Med mgt for now //Lactic acidosis //History of hypertension //History of dyslipidemia //Grade 1 diastolic dysfunction Monitor HR and BP keep MAP>65mmHg. Lactic acid 1.[address] Burnett. IV heparin discontinued secondary to heme positive stools Metoprolol 25mg Q8. Holding Plavix in lieu of worsening thrombocytopenia discussed with cards -Dr. Burnett Hold ASA until plt count>100 due to GIB Troponin trending downward 2d echo 12/13 revealed EF 55-60%. LVH. Grade 1 diastolic dysfunction. 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 Discussed with nurse. Discontinue Manrique. Appears to have some hematuria following Manrique removal. Abnormal urinalysis urine culture indicated will follow-up results. Denies UTI symptoms Monitor renal function, I/O's, electrolytes replacement as needed. Negative urine eosinophils. Prerenal indices. Negative hydronephrosis on renal ultrasound. ID: Received IV vancomycin and Zosyn in the ED. On Zosyn monitor for signs of infections ( Fever, WBC) DC 12/21/1612/12 BC: No growth 12/14: Sputum cx: normal resp jared 12/15 C-diff PCR negative HEME: //Macrocytosis //Leukocytosis- Resolved //Thrombocytopenia Monitor CBC, CMP, coags. HIT panel: Negative ENDO/FEN: //DM //Hypernatremia On SSI ( high scale) with accuchecks Increased Levemir to 20 units in the morning and 10 units at bedtime PROPH: - Bilateral lower extremity SCDs. Protonix twice a day. IV heparin held in light of GI bleed and Hemoccult positive Pt Condition on Discharge: Stable Discharge Disposition: Discharge to SNF Discharge Time: > 30 minutes Discharge Instructions DIET: Follow Instructions for: Heart Healthy Diet, Diabetic Diet Speech Therapy-Diet Recommends: Soft Activities you can perform: Regular-No Restrictions Activities to Avoid: Driving Follow up Referrals: Gastroenterology - 1 Week PCP Follow-up - 1 Week New Orders: BASIC METABOLIC PROF - 1 Week CBC NO DIFF - 1 Week PHOSPHORUS (PO4) - 1 Week New Medications: Insulin Detemir Inj (Levemir Inj) 1,000 unit/ 10 ML Vial 10 UNITS SQ HS Blood Sugar Management #30 INJECTION Insulin Detemir Inj (Levemir Inj) 1,000 unit/ 10 ML Vial 20 UNITS SQ DAILYAC Blood Sugar Management #30 INJECTION Insulin Human Regular Inj (Novolin R Inj) 1,000 Unit/10 Ml Vial 1 UNITS SQ ACHS Do not cover Fasting Sugar less than 200; Max dose at bedtime: 2 units; Max dose at 3am: 0 units; blood sugars less than 70: 0 units; blood sugars 150-199: 1 unit; blood sugars 200-249: 3 units; blood sugars 250-299: 5 units; blood sugars 300-349: 7 units; blood sugars greater than 349: 9 units. Blood Sugar Management #180 INJECTION Ipratropium-Albuterol Neb (Duoneb) 0.5-2.5 Mg/3 Ml Neb 1 AMPULE NEB Q2HR NEB PRN SHORTNESS OF BREATH #180 ML Metoprolol Tartrate (Metoprolol Tartrate) 25 Mg Tab 25 MG PO Q8HR Regulate Heart Beat #90 TAB Pantoprazole (Pantoprazole) 40 Mg Tab 40 MG PO Q12HR Manage Heartburn #60 TAB Potassium Phosphate Monobasic (K-Phos) 500 Mg Tab 1000 MG PO Q12HR Electrolyte Replacement #20 TAB Thiamine HCl (Gnp Vitamin B-1) 100 Mg Tab 100 MG PO DAILY Alcohol Detox #30 TAB Continued Medications: Ezetimibe (Zetia) 10 Mg Tab 10 MG PO DAILY #30 Ref 0 TAB Fish Oil-Cholecalciferol (Fish Oil + D3) 1,200-1,000 Mg-Unit Cap 1 CAP PO DAILY Nutritional Supplement #30 Ref 0 CAP Simvastatin (Zocor) 40 Mg Tab 40 MG PO DAILY Cholesterol Management #30 Ref 0 TAB Additional Information Follow-up CK and urine culture results. If CK unremarkable, may restart Zetia and Zocor. I spent 35 minutes [id number] with the patient or on the manzo discussing the patient's disposition, prognosis, and plan of care with patient's caregivers. Over half the time spent was devoted to counseling the patient regarding placement in coordinating care with caregivers and case management. Dheeraj Hope MD Dec 23, 2016 15:03
[2016-12-23] MEDS ORDERED: PANTOPRAZOLE SOD 40 MG DELAYED RELEASE TAB PO SCH (21:00)
--- NOTE | 2016-12-27 12:43 | PQ ---
Physician Query Response Document PATIENT: LATASHA BATEMAN : 1950 ADMIT DATE: 12/12/2016 1:33 PM DISCH DATE: 12/23/2016 7:04 PM RESPONDING PROVIDER #: Driss QUERY TEXT: Sepsis Query Based on your medical judgement, can you further clarify the folowiing: SEPSIS/SEVERE SEPSIS WAS SEPSIS/SEVERE SEPSIS : 1)rulled out 2)rulled in 3)other(please specify) If Sepsis rulled in, the source of Sepsis/infection was : 1)unknown etiology 2)source was If you have any additional questions/comments and/or concerns please call [email or web address] The patient's Clinical Indicators include: Dr. Hope, there is multiple documentation os SEPSIS/SEVERE SEPSIS in this account. No source of infection is documented. Please review the question below and answer to the best of your ability. Query created by: Haris Cross on 12/25/2016 7:49 AM RESPONSE TEXT: Ruled out Electronically signed by: Dheeraj Hope MD 12/27/2016 12:39 PM
== END 2016-12-23 19:04 | DRG 637 ==
LOC: NEPC 11:21 → NEDA 13:33 → HIMW 15:40 → HIMN 12-14 02:25 → HOCB 12-21 20:28
PROVIDERS: ADMIT Internal Medicine; ATTEND Internal Medicine
PROC: 05H533Z Insertion of Infusion Device into Right Subclavian Vein, Percutaneous Approach (ICD-10-PCS; principal; 2016-12-12)
PROC: 0T9B70Z Drainage of Bladder with Drainage Device, Via Natural or Artificial Opening (ICD-10-PCS; 2016-12-12)
PROC: 5A1945Z Respiratory Ventilation, 24-96 Consecutive Hours (ICD-10-PCS; 2016-12-14)
PROC: 0BH17EZ Insertion of Endotracheal Airway into Trachea, Via Natural or Artificial Opening (ICD-10-PCS; 2016-12-14)
PROC: 0W3P8ZZ Control Bleeding in Gastrointestinal Tract, Via Natural or Artificial Opening Endoscopic (ICD-10-PCS; 2016-12-16)
PROC: 0DJ08ZZ Inspection of Upper Intestinal Tract, Via Natural or Artificial Opening Endoscopic (ICD-10-PCS; 2016-12-20)
PROC: 0D758ZZ Dilation of Esophagus, Via Natural or Artificial Opening Endoscopic (ICD-10-PCS; 2016-12-20)
DX: E13.10 Other specified diabetes mellitus with ketoacidosis without coma (principal); I21.4 Non-ST elevation (NSTEMI) myocardial infarction; J96.00 Acute respiratory failure, unspecified whether with hypoxia or hypercapnia; N17.0 Acute kidney failure with tubular necrosis; R65.20 Severe sepsis without septic shock; G93.41 Metabolic encephalopathy; I85.00 Esophageal varices without bleeding; M62.82 Rhabdomyolysis; F10.239 Alcohol dependence with withdrawal, unspecified; E87.1 Hypo-osmolality and hyponatremia; D62 Acute posthemorrhagic anemia; K76.6 Portal hypertension; R18.8 Other ascites; K22.2 Esophageal obstruction; K52.9 Noninfective gastroenteritis and colitis, unspecified; Z91.041 Radiographic dye allergy status; K74.60 Unspecified cirrhosis of liver; Z91.14 Patient's other noncompliance with medication regimen; E78.00 Pure hypercholesterolemia, unspecified; I10 Essential (primary) hypertension; E86.0 Dehydration; E87.6 Hypokalemia; Z91.19 Patient's noncompliance with other medical treatment and regimen; Z87.442 Personal history of urinary calculi; E78.5 Hyperlipidemia, unspecified; R00.0 Tachycardia, unspecified; K29.60 Other gastritis without bleeding; K29.80 Duodenitis without bleeding; K22.8 Other specified diseases of esophagus; E83.39 Other disorders of phosphorus metabolism; D69.6 Thrombocytopenia, unspecified; Z79.4 Long term (current) use of insulin; D75.89 Other specified diseases of blood and blood-forming organs; K80.20 Calculus of gallbladder without cholecystitis without obstruction; R16.1 Splenomegaly, not elsewhere classified
CPT/HCPCS: 31500; 36556; 36600; 70450; 71010; 74176; 76775; 76937; 80048; 80053; 80061; 81001; 82010; 82140; 82272; 82550; 82552; 82570; 82805; 82947; 82948; 83036; 83605; 83690; 83735; 83880; 84100; 84132; 84300; 84443; 84484; 85007; 85014; 85018; 85025; 85027; 85384; 85610; 85730; 86022; 86900; 86901; 87040; 87070; 87086; 87106; 87205; 87493; 87641; 93005; 93306; 94002; 94003; 94150; 94640; 94664; 96361; 96374; C1726; C9113; J0171; J1644; J1815; J1817; J2060; J2270; J2405; J2543; J3010; J3370; J3411; J3480; J7030; J7050; J7070; Q9963

== ENCOUNTER 2017-08-07 02:21 | Emergency (ER) | payer MEDICARE, OTHER ==
[~2017-08-07] VITALS: Ht 181.6 cm; Wt 110.0 kg
[~2017-08-07 02:21] MED LIST changes: +EZET10 PO; +IPRASOL NEB; +K-PHTAB PO; -LEVA500T PO; +LEVEMIR SQ; -LOTE10TA13 PO; +METO25TA3 PO; +NOVORP2 SQ; +PANT40TA3 PO; +THIA100 PO; -ZETI10TA5 PO
[2017-08-07 02:28] VITALS: BP 121/67; PULSE 92; RESP 18; TEMP 98.2; O2SAT 97
[2017-08-07] MEDS ORDERED: SODIUM CHLOR 0.9% 1000 ML INJ 1,000 ML IV ONE ×2 (02:56→03:26)
[2017-08-07 03:00] VITALS: BP 119/65; PULSE 87; O2SAT 96
[2017-08-07] MEDS ORDERED: SODIUM CHLORIDE 0.9% FLUSH 10 ML FLUSH IVF PRN (03:00)
[2017-08-07] MEDS ORDERED: INSULIN HUMAN REGULAR 1,000 UNITS/10 ML VIAL IV PUSH ONE (03:00)
[2017-08-07 03:16] VITALS: O2SAT 96
[2017-08-07 03:21] LABS: AUTOMATED NEUTROPHIL # 3.4 TH/MM3 (1.8-7.7); BASOPHIL % 0.9 % (0.0-2.0); EOSINOPHIL # 0.2 TH/MM3 (0-0.4); EOSINOPHIL % 3.2 % (0.0-4.0); HEMATOCRIT 35.3 % (39.0-51.0); HEMOGLOBIN 11.9 GM/DL (13.0-17.0); LYMPH % 22.2 % (9.0-44.0); LYMPHOCYTE # 1.2 TH/MM3 (1.0-4.8); MEAN CELL VOLUME 89.2 FL (80.0-100.0); MEAN CORPUSCULAR HGB CONC 33.6 % (32.0-36.0); MEAN PLATELET VOLUME 8.9 FL (7.0-11.0); MONO % 10.9 % (0.0-8.0); MONOCYTE # 0.6 TH/MM3 (0-0.9); NEUT % 62.8 % (16.0-70.0); PLATELET COUNT 108 TH/MM3 (150-450); RED BLOOD COUNT 3.96 MIL/MM3 (4.50-5.90); RED CELL DISTRIBUTION WIDTH 13.1 % (11.6-17.2); WHITE BLOOD COUNT 5.4 TH/MM3 (4.0-11.0)
[2017-08-07 03:43] LABS: ALBUMIN 3.2 GM/DL (3.4-5.0); ALT (GPT) 21 U/L (12-78); AST (GOT) 23 U/L (15-37); BICARBONATE 22.4 MEQ/L (21.0-32.0); BLOOD UREA NITROGEN 9 MG/DL (7-18); CALCIUM 8.3 MG/DL (8.5-10.1); CHLORIDE 107 MEQ/L (98-107); CREATININE 0.86 MG/DL (0.60-1.30); GLOMERULAR FILTRATION RATE 89 ML/MIN (>89); GLUCOSE,RANDOM 349 MG/DL (74-106); SODIUM (NA) 139 MEQ/L (136-145)
[2017-08-07 03:45] LABS: ALKALINE PHOSPHATASE 135 U/L (45-117); TOTAL BILIRUBIN ADULT 0.4 MG/DL (0.2-1.0)
[2017-08-07 04:00] VITALS: BP 118/64; PULSE 86; O2SAT 97
--- NOTE | 2017-08-07 04:09 | PD ---
HPI Chief Complaint: Diabetic Time Seen by Provider: 02:56 Travel History International Travel<30 days: No Contact w/Intl Traveler<30days: No Traveled to known affect area: No History of Present Illness HPI 67-year-old male arrived by EMS from rehabilitation facility where he was at following a fall. His blood glucose was 550 there and he received NovoLog. His blood glucose upon arrival here at 350. He has no complaint. Location endocrine generalized. Timing constant. PFSH Past Medical History Hx Anticoagulant Therapy: Yes (COUMADIN) High Cholesterol: Yes Diabetes: Yes Patient Takes Glucophage: Yes (METFORMIN ) Diminished Hearing: No Hypertension: Yes Immunizations Current: Yes Past Surgical History Genitourinary Surgery: Yes (KIDNEY STONE REMOVAL) Social History Alcohol Use: Yes (OCCASSIONAL) Tobacco Use: No Substance Use: No Allergies-Medications (Allergen,Severity, Reaction): Coded Allergies: iodine (Unverified Allergy, Mild, 08/07/17) potassium iodide (Unverified Allergy, Mild, 08/07/17) povidone-iodine (Unverified Allergy, Mild, 08/07/17) sodium iodide (Unverified Allergy, Mild, 08/07/17) sodium iodide (Unverified Allergy, Mild, 08/07/17) Reported Meds & Prescriptions Reported Meds & Active Scripts Active K-Phos (Potassium Phosphate Monobasic) 500 Mg Tab 1,000 Mg PO Q12HR Gnp Vitamin B-1 (Thiamine HCl) 100 Mg Tab 100 Mg PO DAILY Pantoprazole (Pantoprazole Sodium) 40 Mg Tab 40 Mg PO Q12HR Duoneb (Ipratropium-Albuterol Neb) 0.5-2.5 Mg/3 Ml Neb 1 Ampule NEB Q2HR NEB PRN Novolin R Inj (Insulin Human Regular) 1,000 Unit/10 Ml Vial 1 Units SQ ACHS Do not cover Fasting Sugar less than 200; Max dose at bedtime: 2 units; Max dose at 3am: 0 units; blood sugars less than 70: 0 units; blood sugars 150-199: 1 unit; blood sugars 200-249: 3 units; blood sugars 250-299: 5 units; blood sugars 300-349: 7 units; blood sugars greater than 349: 9 units. Levemir Inj (Insulin Detemir) 1,000 unit/ 10 ML Vial 20 Units SQ DAILYAC Levemir Inj (Insulin Detemir) 1,000 unit/ 10 ML Vial 10 Units SQ HS Metoprolol Tartrate 25 Mg Tab 25 Mg PO Q8HR Reported Zocor (Simvastatin) 40 Mg Tab 40 Mg PO DAILY Fish Oil + D3 (Fish Oil-Cholecalciferol) 1,200-1,000 Mg-Unit Cap 1 Cap PO DAILY Glumetza (Metformin HCl) 1,000 Mg Moira 1,000 Mg PO BID With evening meal Glipizide 5 Mg Tab 5 Mg PO BIDAC Take 30 minutes before a meal Zetia (Ezetimibe) 10 Mg Tab 10 Mg PO DAILY Clonidine (Clonidine HCl) 0.1 Mg Tab 0.1 Mg PO DAILY Metoprolol Tartrate 100 Mg Tab 100 Mg PO DAILY Review of Systems Except as stated in HPI: all other systems reviewed are Neg General / Constitutional: No: Fever Physical Exam Narrative GENERAL: 67-year-old male pleasant no acute distress Vital Signs Date Time Temp Pulse Resp B/P (MAP) Pulse Ox O2 Delivery O2 Flow Rate FiO2 08/07/17 03:16 96 08/07/17 03:00 87 119/65 (83) 96 Room Air 08/07/17 02:28 98.2 92 18 121/67 (85) 97 SKIN: Warm and dry. HEAD: Atraumatic. Normocephalic. EYES: Pupils equal and round. No scleral icterus. No injection or drainage. ENT: No nasal bleeding or discharge. Mucous membranes pink and moist. NECK: Trachea midline. No JVD. CARDIOVASCULAR: Regular rate and rhythm. RESPIRATORY: No accessory muscle use. Clear to auscultation. Breath sounds equal bilaterally. GASTROINTESTINAL: Abdomen soft, non-tender, nondistended. Hepatic and splenic margins not palpable. MUSCULOSKELETAL: Extremities without clubbing, cyanosis, or edema. No obvious deformities. NEUROLOGICAL: Awake and alert. No obvious cranial nerve deficits. Motor grossly within normal limits. Five out of 5 muscle strength in the arms and legs. Normal speech. PSYCHIATRIC: Appropriate mood and affect; insight and judgment normal. Data Data Last Documented VS Vital Signs Date Time Temp Pulse Resp B/P (MAP) Pulse Ox O2 Delivery O2 Flow Rate FiO2 08/07/17 03:16 96 08/07/17 03:00 87 119/65 (83) Room Air 08/07/17 02:28 98.2 18 Orders Orders Complete Blood Count With Diff (08/07/17 02:56) Comprehensive Metabolic Panel (08/07/17 02:56) Blood Glucose (08/07/17 02:56) Blood Glucose (08/07/17 03:56) Ecg Monitoring (08/07/17 02:56) Iv Access Insert/Monitor (08/07/17 02:56) Oximetry (08/07/17 02:56) Sodium Chlor 0.9% 1000 Ml Inj (Ns 1000 M (08/07/17 02:56) Sodium Chlor 0.9% 1000 Ml Inj (Ns 1000 M (08/07/17 03:26) Sodium Chloride 0.9% Flush (Ns Flush) (08/07/17 03:00) Insulin Human Regular Inj (Novolin R Inj (08/07/17 03:00) Labs Laboratory Tests Test 08/07/17 03:00 White Blood Count 5.4 TH/MM3 Red Blood Count 3.96 MIL/MM3 Hemoglobin 11.9 GM/DL Hematocrit 35.3 % Mean Corpuscular Volume 89.2 FL Mean Corpuscular Hemoglobin 30.0 PG Mean Corpuscular Hemoglobin Concent 33.6 % Red Cell Distribution Width 13.1 % Platelet Count 108 TH/MM3 Mean Platelet Volume 8.9 FL Neutrophils (%) (Auto) 62.8 % Lymphocytes (%) (Auto) 22.2 % Monocytes (%) (Auto) 10.9 % Eosinophils (%) (Auto) 3.2 % Basophils (%) (Auto) 0.9 % Neutrophils # (Auto) 3.4 TH/MM3 Lymphocytes # (Auto) 1.2 TH/MM3 Monocytes # (Auto) 0.6 TH/MM3 Eosinophils # (Auto) 0.2 TH/MM3 Basophils # (Auto) 0.0 TH/MM3 CBC Comment DIFF FINAL Differential Comment Blood Urea Nitrogen 9 MG/DL Creatinine 0.86 MG/DL Random Glucose 349 MG/DL Total Protein 7.0 GM/DL Albumin 3.2 GM/DL Calcium Level 8.3 MG/DL Alkaline Phosphatase 135 U/L Aspartate Amino Transf (AST/SGOT) 23 U/L Alanine Aminotransferase (ALT/SGPT) 21 U/L Total Bilirubin 0.4 MG/DL Sodium Level 139 MEQ/L Potassium Level 3.9 MEQ/L Chloride Level 107 MEQ/L Carbon Dioxide Level 22.4 MEQ/L Anion Gap 10 MEQ/L Estimat Glomerular Filtration Rate 89 ML/MIN MDM Medical Decision Making Medical Screen Exam Complete: Yes Emergency Medical Condition: Yes Medical Record Reviewed: Yes Differential Diagnosis Hyperglycemia, DKA, electrolyte imbalance Narrative Course CBC & BMP Diagram 08/07/17 03:00 Total Protein 7.0, Albumin 3.2 L, Calcium Level 8.3 L, Alkaline Phosphatase 135 H, Aspartate Amino Transf (AST/SGOT) 23, Alanine Aminotransferase (ALT/SGPT) 21 , Total Bilirubin 0.4 Anion gap 10 Repeat blood glucose 245 The patient is ready for discharge. No evidence of DKA The patient is resting comfortably and feels better, is alert and in no distress. The patients results and examination findings were discussed. The repeat examination is unremarkable and benign. The history, exam, diagnostic testing, and current condition do not suggest any significant pathology to warrant further testing, continued ED treatment, admission, or surgical evaluation at this point. The vital signs have been stable. The patient does not have uncontrollable pain, intractable vomiting, or other significant symptoms. The patient's condition is stable and appropriate for discharge. The patient will pursue further outpatient evaluation with a primary care physician or other designated or consulting physician as indicated in the discharge instructions. The patient expressed understanding and was agreeable with this plan. Diagnosis Primary Impression: Hyperglycemia Referrals: Primary Care Physician 2 days Med/Other Pt SpecificInfo: No Change to Meds Disposition: 01 DISCHARGE HOME Condition: Stable Surjit Burnett MD Aug 07, 2017 04:09
[2017-08-07 10:48] VITALS: BP 130/66; PULSE 96; RESP 16; O2SAT 98
== END 2017-08-07 11:36 | disposition home or self-care (01) ==
LOC: NEPC 02:21
DX: E11.65 Type 2 diabetes mellitus with hyperglycemia (principal); E78.00 Pure hypercholesterolemia, unspecified; I10 Essential (primary) hypertension; Z79.4 Long term (current) use of insulin
CPT/HCPCS: 80053; 85025; 96361; 96374; 99284; J1815; J7030